=== PATIENT | male | born 1970 | race Caucasian/White ===

== ENCOUNTER → 2017-08-22 10:20 | Outpatient (CLI) | payer BC, SELFPAY ==
--- NOTE | 2017-08-22 10:27 | MR_ITS ---
MR knee RT wo con HISTORY: Medial lateral knee pain ITS.REASON: PAIN IN RT KNEE ORDERING PHYSICIAN: Sisi Catherine PATIENT AGE: 47 years Comparison: None TECHNIQUE: Standard multiplanar multiecho sequences are performed without contrast. FINDINGS: The cruciate ligaments are intact. The collateral ligaments, patellar tendon, and quadriceps tendon are intact. The patellar cartilage is well preserved. A prominent horizontal tear is present within the posterior horn of the medial meniscus extending to the mid aspect of the body of the medial meniscus.. The anterior horn of the medial meniscus and the lateral meniscus has an unremarkable appearance. There is a small knee joint effusion. There may be a small rent in the posterior aspect of the joint capsule as seen on the axial image #12 small amount fluid in this region. No bone bruise or fracture evident. IMPRESSION: 1. Prominent horizontal tear involves the posterior horn of the medial meniscus extending to the mid aspect of the body of the medial meniscus 2. Small knee joint effusion with possible rent in the posterior capsule and mid popliteal region
== END ==
PROVIDERS: PCP Nurse Practitioner Family; Visit Provider Nurse Practitioner Family
DX: M25.561 Pain in right knee (principal)
CPT/HCPCS: 73721

== ENCOUNTER 2017-10-25 08:00 | Outpatient (RCR) | payer BC, SELFPAY | END 2017-10-25 08:01 | disposition home or self-care (01) | LOC: PT 08:00 | PROVIDERS: PCP Nurse Practitioner Family; Visit Provider Orthopaedic Surgery Adult Reconstructive Orthopaedic Surgery | DX: S83.281A Other tear of lateral meniscus, current injury, right knee, initial encounter (principal); M25.561 Pain in right knee | CPT/HCPCS: 97010; 97014; 97016; 97110; 97140; 97163; G0283 ==

== ENCOUNTER 2018-07-01 08:00 | Outpatient (RCR) | payer OTHER, SELFPAY | END 2018-07-01 08:05 | disposition home or self-care (01) | LOC: PT 08:00 | PROVIDERS: Visit Provider Orthopaedic Surgery | DX: S43.432A 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, initial encounter (principal) | CPT/HCPCS: 97010; 97014; 97016; 97033; 97035; 97110; 97140; 97163; 97164; G0283 ==

== ENCOUNTER 2020-01-15 18:15 | Emergency (ER) | payer BC, SELFPAY ==
[2020-01-15 18:33] VITALS: BP 132/86; PULSE 80; RESP 18; TEMP 36.9; O2SAT 99; BMI 25.0
--- NOTE | 2020-01-15 19:04 | HMH.EDUTC ---
[facility] [place] Disposition Clinical Impression: Sinusitis Qualifiers: Sinusitis location: unspecified location Chronicity: acute Recurrence: non-recurrent Qualified Code(s): J01.90 - Acute sinusitis, unspecified Disposition: Home, Self-Care Condition on Discharge: Good Instructions: Sinusitis, DI for Sinusitis Additional Instructions: Drink plenty of fluids. Take tylenol or ibuprofen for pain or fever. Take the medications as directed. Follow up with your regular doctor. GO TO THE ER FOR ANY WORSENING SYMPTOMS Don't start the oral steroids until tomorrow, since you had the shot here today. Prescriptions: methylPREDNISolone [Medrol] 4 mg PO DIRECTED 6 Days #21 tab.[email or web address] Transmission Status: Received by [facility] Azithromycin [Z-Darnell 250mg Tab*] 250 mg PO UD DOSE PK #6 tab Transmission Status: Received by [facility] Referrals: Sisi Catherine [Primary Care Provider] - Time of Disposition: 19:18 Medical Decision Making - Medical Records Medical records reviewed: No: I reviewed the patient's medical records. - Marcel Inquiry Pt receiving controlled substance: No Vital Signs: 01/15/20 18:33 Temperature 98.5 F Temperature Source Oral Pulse Rate [Radial] 80 Respiratory Rate 18 Blood Pressure [Right Arm] 132/86 Blood Pressure Mean [Right Arm] 101 Blood Pressure Source [Right Arm] Automatic Cuff Blood Pressure Position [Right Arm] Sitting 02 Sat by Pulse Oximetry 99 Oxygen Delivery Method Room Air Orders (Tests/Meds): ED MEDICATIONS Discontinued Medications Generic Name Dose Route Start Last Admin Trade Name Freq PRN Reason Stop Dose Admin Ceftriaxone Sodium 1 gm 01/15/20 19:06 01/15/20 19:19 Ceftriaxone 1gm Vial IM 01/15/20 19:07 1 gm ONCE ONE Administration Protocol Lidocaine HCl 0 ml 01/15/20 19:06 01/15/20 19:19 Lidocaine 1% 5ml Pf Vial IM 01/15/20 19:07 2.1 ml ONCE ONE Administration Methylprednisolone Sodium Succinate 125 mg 01/15/20 19:06 01/15/20 19:19 Methylprednisolone Sod Succ 125mg Vial IM 01/15/20 19:07 125 mg ONCE ONE Administration [facility] [place] HPI - General Stated complaint: sinus infection Time Seen by Provider: 01/15/20 19:04 Mode of Arrival: Ambulatory Source of Information: Patient Limitations: No Limitations Description of Symptoms (Recalled from Triage Doc. by RN): possible sinus infection HEENT Symptoms (Recalled from RN notes): Yes Resp Symptoms (Recalled from RN notes): No Skin Symptoms (Recalled from RN notes): No MS Symptoms (Recalled from RN notes): No Functional Status (Recalled from RN notes): wnl - History of Present Illness Provider Complaint: He c/o sinus congestion since yesterday. He states that he has bad allergies and he usually gets a sinus infection like this 2 or 3 times per year. He denies any fever or chills or cough. - Related Data Previous Rx's Medication Instructions Recorded amoxicillin 500 mg capsule 500 mg PO Q12H 10 Days #20 cap 11/21/18 Azithromycin [Z-Darnell 250mg Tab*] 250 mg PO UD DOSE PK #6 tab 01/15/20 methylPREDNISolone [Medrol] 4 mg PO DIRECTED 6 Days #21 01/15/20 tab.ds.pk Allergies Allergy/AdvReac Type Severity Reaction Status Date / Time No Known Allergies Allergy Verified 11/21/18 10:55 - Worker's Comp Is this a Worker's Comp case?: No [facility] History - Hepatitis A Screen Drug use history?: No High risk sexual behaviors?: No History of sexually transmitted infection?: No Currently employed?: No Childcare worker?: No Do you have indoor plumbing?: Yes Do you have electricity?: Yes Attestation statement:: This patient has been screened for Hepatitis A risk factors. I have reviewed the patient's past medical history: Yes Medical History: Reports:: Anxiety Laterality Cases: Left: Arthroscopy Shoulder, Right: Arthroscopy Knee, Bilateral: Myringotomy (Ear Tubes), Tonsillectomy Other Surgeries: Yes: Cardiac Catheterization, Sinus Surgery
[2020-01-15 19:26] VITALS: BP 132/86; PULSE 80; RESP 18; TEMP 36.9; O2SAT 99
== END 2020-01-15 19:28 | disposition home or self-care (01) ==
PROVIDERS: Emergency Provider Nurse Practitioner Family; PCP Nurse Practitioner Family
DX: J01.90 Acute sinusitis, unspecified (principal); F41.9 Anxiety disorder, unspecified
CPT/HCPCS: 96372; 99201

== ENCOUNTER 2020-03-01 17:55 | Emergency (ER) | payer BC, SELFPAY ==
[2020-03-01 18:50] VITALS: BP 125/91; PULSE 68; RESP 14; TEMP 36.8; O2SAT 99; BMI 25.0
--- NOTE | 2020-03-01 19:09 | HMH.EDUTC ---
[facility] [place]ression: Exposure to COVID-19 virus Disposition: Home, Self-Care Condition on Discharge: Good Instructions: Preventing the Spread of Coronavirus Discharge Instructions Additional Instructions: Drink plenty of fluids. Take tylenol for pain or fever. Return if you begin to have difficulty breathing. Follow up with your regular doctor. GO TO THE ER FOR ANY WORSENING SYMPTOMS Referrals: Sisi Catherine [Primary Care Provider] - Time of Disposition: 19:11 Medical Decision Making - Medical Records Medical records reviewed: No: I reviewed the patient's medical records. - Marcel Inquiry Pt receiving controlled substance: No Vital Signs: 03/01/20 18:50 03/01/20 19:11 Temperature 98.3 F 98.3 F Temperature Source Oral Pulse Rate 68 Pulse Rate [Right Brachial] 68 Respiratory Rate 14 14 Blood Pressure 125/91 H Blood Pressure [Right Arm] 125/91 H Blood Pressure Mean [Right Arm] 102 Blood Pressure Source [Right Arm] Automatic Cuff Blood Pressure Position [Right Arm] Sitting 02 Sat by Pulse Oximetry 99 Oxygen Delivery Method Room Air Orders (Tests/Meds): ORDERS Category Date Time Status Covid-19 Nasal PCR Sendout [facility] 03/01/20 18:40 [place] [facility] [place] - General Stated complaint: covid exposure Time Seen by Provider: 03/01/20 19:09 Mode of Arrival: Ambulatory Source of Information: Patient Limitations: No Limitations Description of Symptoms (Recalled from Triage Doc. by RN): PATIENT REQUESTING COVID TEST D/T EXPOSURE HEENT Symptoms (Recalled from RN notes): No Resp Symptoms (Recalled from RN notes): No Skin Symptoms (Recalled from RN notes): No MS Symptoms (Recalled from RN notes): No Functional Status (Recalled from RN notes): WNL - History of Present Illness Provider Complaint: He reports that he was exposed to covid last week at work. He has had a head ache on and off since yesterday. He has also had some diarrhea. He denies any other symptoms. - Related Data Allergies Allergy/AdvReac Type Severity Reaction Status Date / Time No Known Allergies Allergy Verified 11/21/18 10:55 - Worker's Comp Is this a Worker's Comp case?: No [facility] History - Hepatitis A Screen Drug use history?: No High risk sexual behaviors?: No History of sexually transmitted infection?: No Currently employed?: No Childcare worker?: No Do you have indoor plumbing?: Yes Do you have electricity?: Yes Attestation statement:: This patient has been screened for Hepatitis A risk factors. I have reviewed the patient's past medical history: Yes Medical History: Reports:: Anxiety Laterality Cases: Left: Arthroscopy Shoulder, Right: Arthroscopy Knee, Bilateral: Myringotomy (Ear Tubes), Tonsillectomy Other Surgeries: Yes: Cardiac Catheterization, Sinus Surgery Amputation: No Fractures: No - Social History Smoking Status: Never smoker Alcohol Intake: never Substance Use Type: denies use Occupational Status: other Housing: house Household Members: family - Psychiatric History Pschychiatric History:: Reports:: Anxiety Family Hx:: Cancer, Heart Attack ROS Obtained: Yes All systems reviewed & no additional complaints - Constitutional Constitutional: Reports system reviewed and no additional complaints, except as docu - Eyes Eyes: Reports system reviewed and no additional complaints, except as docu - ENT Ears, Nose, Mouth, and Throat: Reports system reviewed and no additional complaints, except as docu - Cardiovascular Cardiovascular: Reports system reviewed and no additional complaints, except as docu - Respiratory Respiratory: Yes system reviewed and no additional complaints, except as docu - Gastrointestinal Gastrointestingal: Reports: system reviewed and no additional complaints, except as docu Physical Exam - General General appearance: alert, in no apparent distress - Head Head exam: atraumatic, normocephalic, normal inspection
[2020-03-01 19:11] VITALS: BP 125/91; PULSE 68; RESP 14; TEMP 36.8; O2SAT 99
[2020-03-03 15:52] LABS: Covid-19 Nasal PCR Sendout Lex Not Detected
== END 2020-03-01 19:14 | disposition home or self-care (01) ==
PROVIDERS: Emergency Provider Nurse Practitioner Family; PCP Nurse Practitioner Family
DX: Z20.828 Contact with and (suspected) exposure to other viral communicable diseases (principal); F41.9 Anxiety disorder, unspecified
CPT/HCPCS: 99201; U0004

== ENCOUNTER 2020-11-28 10:09 | Emergency (ER) | payer BC, SELFPAY ==
[2020-11-28 11:13] VITALS: BP 134/90; PULSE 99; RESP 20; TEMP 36.6; O2SAT 99; BMI 25.0
--- NOTE | 2020-11-28 11:23 | HMH.EDUTC ---
[facility] [place] Disposition Clinical Impression: Allergic rhinitis Qualifiers: Allergic rhinitis trigger: unspecified Allergic rhinitis seasonality: unspecified Qualified Code(s): J30.9 - Allergic rhinitis, unspecified Disposition: Home, Self-Care Condition on Discharge: Good Instructions: Allergic Rhinitis Prescriptions: Olopatadine HCl [Pataday] 1 drp * BID 30 Days #1 ml Transmission Status: Pending to [facility] predniSONE [Prednisone 20mg Tab] 20 mg PO BID #10 tab Transmission Status: Pending to [facility] Pseudoephedrine HCl [Sudafed 12 Hour 120mg Tab] 1 tab PO BID 10 Days #20 tab Transmission Status: Pending to [facility] Referrals: Janessa Rai [Primary Care Provider] - Time of Disposition: 11:35 Medical Decision Making - Marcel Inquiry Pt receiving controlled substance: No Vital Signs: 11/28/20 11:13 Temperature 97.8 F Temperature Source Oral Pulse Rate [Left] 99 H Respiratory Rate 20 Blood Pressure [Right Arm] 134/90 Blood Pressure Mean [Right Arm] 104 02 Sat by Pulse Oximetry 99 Orders (Tests/Meds): ORDERS Category Date Time Status Covid-19 Nasal PCR ([facility]) Routine Lab 11/28/20 11:18 Ordered [facility] HPI - General Stated complaint: congestion, sinus Time Seen by Provider: 11/28/20 11:23 Mode of Arrival: Ambulatory Source of Information: Patient Limitations: No Limitations Description of Symptoms (Recalled from Triage Doc. by RN): pt c/o nasal drainage and congestion. HEENT Symptoms (Recalled from RN notes): Yes (nasal drainage and congestion) Resp Symptoms (Recalled from RN notes): No Skin Symptoms (Recalled from RN notes): No MS Symptoms (Recalled from RN notes): No Functional Status (Recalled from RN notes): na - History of Present Illness Provider Complaint: Nasal congestion and drainage X 4 days. No fever. Eyes have been watering. Started after mowing but allergy meds have not helped. No vomiting or diarrhea. Tested negative for COVID19 at [facility] on . Onset (ago): day(s) (4) Location: eyes Relieving factors: none Exacerbating factors: none Associated symptoms: denies other symptoms Treatments prior to arrival: other (claritin, zyrtec, Xyzal, cate) - Related Data Previous Rx's Medication Instructions Recorded Olopatadine HCl [Pataday] 1 drp * BID 30 Days #1 ml 11/28/20 Pseudoephedrine HCl [Sudafed 12 1 tab PO BID 10 Days #20 tab 11/28/20 Hour 120mg Tab] predniSONE [Prednisone 20mg 20 mg PO BID #10 tab 11/28/20 Tab] Allergies Allergy/AdvReac Type Severity Reaction Status Date / Time No Known Allergies Allergy Verified 11/28/20 11:15 - Worker's Comp Is this a Worker's Comp case?: No [facility] History - Hepatitis A Screen Drug use history?: No High risk sexual behaviors?: No History of sexually transmitted infection?: No Currently employed?: No Childcare worker?: No Do you have indoor plumbing?: Yes Do you have electricity?: Yes Attestation statement:: This patient has been screened for Hepatitis A risk factors. I have reviewed the patient's past medical history: Yes Medical History: Reports:: Anxiety Laterality Cases: Left: Arthroscopy Shoulder, Right: Arthroscopy Knee, Bilateral: Myringotomy (Ear Tubes), Tonsillectomy Other Surgeries: Yes: Cardiac Catheterization, Sinus Surgery Amputation: No Fractures: No - Social History Smoking Status: Never smoker Alcohol Intake: never Substance Use Type: denies use Occupational Status: other Housing: house Household Members: family - Psychiatric History Pschychiatric History:: Reports:: Anxiety Family Hx:: Cancer, Heart Attack ROS Obtained: Yes All systems reviewed & no additional complaints - Constitutional Constitutional: Denies fever(s) - Eyes Eyes: Reports itchy eyes - ENT Ears, Nose, Mouth, and Throat: Reports otalgia, Reports nasal congestion, Reports sore throat Physical Exam - General General appearance: alert, in no apparent
[2020-11-28 11:33] VITALS: BP 134/90; PULSE 83; RESP 16; TEMP 36.6
== END 2020-11-28 12:03 | disposition home or self-care (01) ==
PROVIDERS: Emergency Provider Physician Assistant; PCP Family Medicine
DX: J30.9 Allergic rhinitis, unspecified (principal); F41.9 Anxiety disorder, unspecified
CPT/HCPCS: 96372; 99202; G0463; J1030; U0003

== ENCOUNTER 2021-05-31 09:35 | Emergency (ER) | payer BC, SELFPAY ==
[2021-05-31 10:15] VITALS: BP 129/80; PULSE 68; RESP 18; TEMP 36.8; O2SAT 100; BMI 27.1
--- NOTE | 2021-05-31 10:28 | HMH.EDUTC ---
[facility] [place]ression: Sinusitis Qualifiers: Sinusitis location: unspecified location Chronicity: unspecified Qualified Code(s): J32.9 - Chronic sinusitis, unspecified Disposition: Home, Self-Care Condition on Discharge: Good Instructions: Sinusitis, DI for Sinusitis, DI for Cough -- Adult Additional Instructions: *Monitor Temp, Over the counter Motrin or Tylenol as directed/as needed Tylenol every 4 hours and Motrin every 6 hours (as long as your family doctor has told you that you can take it) for fever or pain. and straight to ER if unable to lower temp less than 101.0 after medication given *Warm salt water gargles may help to soothe the throat *Throat Lozenges *Warm fluids like tea with honey may help to soothe the throat *Sleep elevated *Humidifier/Vaporizer Take medication as prescribed Follow up if no improvement Follow up IMMEDIATELY for new or worsening symptoms or no Noticeable improvement over the next 48-72 hours. 911 for difficulty breathing or swallowing Prescriptions: guaiFENesin [Mucinex 600mg tablet] 1 - 2 tab PO Q12HP PRN #20 tab PRN Reason: Congestion Transmission Status: [facility] Amoxicillin/Potassium Clav [Amox-Clav 875-125 mg Tablet] 1 tab PO BID #14 tab Transmission Status: [facility] methylPREDNISolone [Medrol 4mg tab] 4 mg PO DIRECTED #21 tab Transmission Status: [facility] Referrals: Sisi Catherine [Primary Care Provider] - As needed Forms: Work/School Release Time of Disposition: 10:34 Medical Decision Making - Marcel Inquiry Pt receiving controlled substance: No Marcel was queried for this patient: No Vital Signs: 05/31/21 10:15 Temperature 98.3 F Temperature Source Oral Pulse Rate [Right Radial] 68 Respiratory Rate 18 Blood Pressure [Right Arm] 129/80 Blood Pressure Mean [Right Arm] 96 Blood Pressure Source [Right Arm] Automatic Cuff Blood Pressure Position [Right Arm] Sitting 02 Sat by Pulse Oximetry 100 Oxygen Delivery Method Room Air [facility] [place] - General Stated complaint: congestion, cough, h/a, runny nose, body aches Time Seen by Provider: 05/31/21 10:28 Mode of Arrival: Ambulatory Source of Information: Patient Limitations: No Limitations Description of Symptoms (Recalled from Triage Doc. by RN): pt reports head and chest congestion and cough that is productive at times. Denies fevers, n/v/d and SOA. Pt reports postnasal drainage. Pt states he was swabbed yesterday for covid at his work, he is awaiting test results. HEENT Symptoms (Recalled from RN notes): Yes (c/o head and chest congestion and postnasal drainage.) Resp Symptoms (Recalled from RN notes): No Skin Symptoms (Recalled from RN notes): No MS Symptoms (Recalled from RN notes): No Functional Status (Recalled from RN notes): n/a - History of Present Illness Provider Complaint: Patient states that he has been having sinus congestion and pressure along with drainage in the back of his throat and cough that at times he is able to cough up mucous States that due to his symptoms he was tested for COVID yesterday at work still awaiting results States that today he is feeling pressure behind his eyes and feels like it is getting worse - Related Data Previous Rx's Medication Instructions Recorded Olopatadine HCl [Pataday] 1 drp * BID 30 Days #1 ml 11/28/20 Pseudoephedrine HCl [Sudafed 12 1 tab PO BID 10 Days #20 tab 11/28/20 Hour 120mg Tab] predniSONE [Prednisone 20mg 20 mg PO BID #10 tab 11/28/20 Tab] Amoxicillin/Potassium Clav 1 tab PO BID #14 tab 05/31/21 [Amox-Clav 875-125 mg Tablet] guaiFENesin [Mucinex 600mg tablet] 1 - 2 tab PO Q12HP PRN #20 tab 05/31/21 methylPREDNISolone [Medrol 4mg 4 mg PO DIRECTED #21 tab 05/31/21 tab] Allergies Allergy/AdvReac Type Severity Reaction Status Date / Time No Known Allergies Allergy Verified 11/28/20 11:15 - Worker's Comp Is this a
[2021-05-31 10:47] VITALS: BP 129/80; PULSE 68; RESP 18; TEMP 36.8; O2SAT 100
== END 2021-05-31 10:50 | disposition home or self-care (01) ==
PROVIDERS: Emergency Provider Nurse Practitioner; PCP Nurse Practitioner Family
DX: J32.9 Chronic sinusitis, unspecified (principal)
CPT/HCPCS: 99212; G0463

== ENCOUNTER 2021-11-20 08:00 | Emergency (ER) | payer BC, SELFPAY ==
[2021-11-20 08:10] VITALS: BP 132/91; PULSE 82; RESP 19; TEMP 36.8; O2SAT 99; BMI 25.7
--- NOTE | 2021-11-20 08:30 | HMH.EDUTC ---
[facility] [place]ression: Encounter for laboratory testing for COVID-19 virus Sinusitis Qualifiers: Sinusitis location: unspecified location Chronicity: unspecified Qualified Code(s): J32.9 - Chronic sinusitis, unspecified Disposition: Home, Self-Care Condition on Discharge: Good Instructions: Sinusitis, DI for COVID-19 (Suspected or Confirmed ), Preventing the Spread of Coronavirus Discharge Instructions Additional Instructions: *Monitor Temp, Over the counter Motrin or Tylenol as directed/as needed Tylenol every 4 hours and Motrin every 6 hours (as long as your family doctor has told you that you can take it) for fever or pain. and straight to ER if unable to lower temp less than 101.0 after medication given *Warm salt water gargles may help to soothe the throat *Throat Lozenges *Warm fluids like tea with honey may help to soothe the throat *Sleep elevated *Humidifier/Vaporizer *Flonase 2 sprays in each nostril daily but be aware that it may take 2-3 days before you notice improvement Follow up IMMEDIATELY for new or worsening symptoms or no Noticeable improvement over the next 48-72 hours. 911 for difficulty breathing or swallowing You were tested for today for COVID19 your test result should be back in the next 24-48 hours, you may check your results on the [facility] My Health Portal Make sure to take your Vitamins Vit. C Vit D and Zinc if you can take them Prescriptions: methylPREDNISolone [Medrol 4mg tab] 4 mg PO DIRECTED #21 tab Transmission Status: Pending to [facility] Azithromycin [Z-Darnell 250mg Tab] 250 mg PO DIRECTED #6 tab [facility]: [facility] Referrals: Provider,Referral, [Primary Care Provider] - As needed Forms: Work/School Release Time of Disposition: 08:37 Medical Decision Making - Marcel Inquiry Pt receiving controlled substance: No Marcel was queried for this patient: No Vital Signs: 11/20/21 08:10 Temperature 98.2 F Temperature Source Oral Pulse Rate [Left Brachial] 82 Respiratory Rate 19 Blood Pressure [Left Arm] 132/91 H Blood Pressure Mean [Left Arm] 104 Blood Pressure Source [Left Arm] Automatic Cuff Blood Pressure Position [Left Arm] Sitting 02 Sat by Pulse Oximetry 99 Oxygen Delivery Method Room Air Orders (Tests/Meds): ORDERS Category Date Time Status Covid-19 Nasal PCR ([facility]) Routine Lab 11/20/21 08:19 [place] [facility] [place] - General Stated complaint: Home test positive Covid, retest, aches Time Seen by Provider: 11/20/21 08:30 Mode of Arrival: Ambulatory Source of Information: Patient Limitations: No Limitations Description of Symptoms (Recalled from Triage Doc. by RN): PATIENT C/O COUGH, CHEST CONGESTION, BODY ACHES AND FEVER SINCE YESTERDAY HEENT Symptoms (Recalled from RN notes): No Resp Symptoms (Recalled from RN notes): Yes Skin Symptoms (Recalled from RN notes): No MS Symptoms (Recalled from RN notes): No Functional Status (Recalled from RN notes): WNL - History of Present Illness Provider Complaint: Patient states that he has been having sinus congestion and pressure for several days and thought it may have been just allergies States that yesterday it got worse and he was having pressure behind his eyes and having body aches and low grade fever States that today he was feeling worse so he came in to get checked out - Related Data Previous Rx's Medication Instructions Recorded Azithromycin [Z-Darnell 250mg Tab] 250 mg PO DIRECTED #6 tab 11/20/21 methylPREDNISolone [Medrol 4mg 4 mg PO DIRECTED #21 tab 11/20/21 tab] Allergies Allergy/AdvReac Type Severity Reaction Status Date / Time No Known Allergies Allergy Verified 11/28/20 11:15 - Worker's Comp Is this a Worker's Comp case?: No [facility] History - Hepatitis A Screen Attestation statement:: This patient has been screened for Hepatitis A risk factors. I have reviewed the patient's past medical history:
[2021-11-20 08:38] VITALS: BP 132/91; PULSE 82; RESP 19; TEMP 36.8; O2SAT 99
== END 2021-11-20 08:44 | disposition home or self-care (01) ==
PROVIDERS: Emergency Provider Nurse Practitioner
DX: J32.9 Chronic sinusitis, unspecified; U07.1 COVID-19
CPT/HCPCS: 99212; C9803; G0463; U0003; U0005

== ENCOUNTER 2022-04-11 09:32 | Emergency (ER) | payer BC, SELFPAY ==
[2022-04-11 09:35] VITALS: BP 121/72; PULSE 52; RESP 19; TEMP 36.5; O2SAT 98; BMI 27.1
--- NOTE | 2022-04-11 09:42 | EXP.UTC ---
Discharge Plan Disposition Patient Disposition: Home, Self-Care Condition: Good Prescriptions Prescriptions: New promethazine-DM 6.25-15 mg/5 mL Syrup 5 ml PO Q6H PRN (Reason: Cough) Qty: 240 0RF azithromycin [Zithromax] 250 mg tablet 250 mg PO UD DOSE PK Qty: 6 0RF Rx Instructions: Take two (2) tablets today, then one (1) tablet days #2 thru #5 methylprednisolone 4 mg Tablets,Dose Pack 4 mg PO DIRECTED Qty: 21 0RF guaifenesin [Mucinex] 600 mg tablet extended release 12hr 600 - 1,200 mg PO BIDP PRN (Reason: Congestion) Qty: 30 0RF No Action escitalopram oxalate 20 mg tablet 20 mg PO DAILY Label Comments: TAKE 1 TABLET BY MOUTH ONCE DAILY Referrals Follow up/Referrals: Provider,Referral, MD [Primary Care Provider] - See instructions Activity Restrictions/Add. Instructions Additional Instructions/Restrictions: Drink plenty of fluids. Take tylenol or ibuprofen for pain or fever. Take the medications as directed. Follow up with your regular doctor. GO TO THE ER FOR ANY WORSENING SYMPTOMS Clinical Impressions Clinical Impression: Sinusitis, Bronchitis Instructions Patient Instructions: DI for Sinusitis, DI for Acute Bronchitis Discharge ED Provider: Lane Adler [facility] [place] General Stated complaint: Persistant Cough Time Seen by Provider: 04/11/22 09:42 History of Present Illness Provider Complaint: He states that he has had sinus congestion, chest congestion, productive cough with yellow sputum and malaise for the past 5 days. Related Data Home Medications Medication Instructions Recorded Confirmed escitalopram oxalate 20 mg tablet 20 mg PO DAILY Anxiety 04/11/22 04/11/22 Previous Rx's Medication Instructions Recorded azithromycin 250 mg tablet 250 mg PO UD DOSE PK #6 tabs 04/11/22 (Zithromax) guaifenesin 600 mg tablet, 600 - 1,200 mg PO BIDP PRN 04/11/22 extended release 12 hr (Mucinex) Congestion #30 tabs methylprednisolone 4 mg tablets in 4 mg PO DIRECTED #21 tabs 04/11/22 a dose pack promethazine-DM 6.25 mg-15 mg/5 mL 5 ml PO Q6H PRN Cough #240 mL 04/11/22 oral syrup Allergies Allergy/AdvReac Type Severity Reaction Status Date / Time No Known Allergies Allergy Verified 04/11/22 09:51 [facility] Disclaimer: The information contained in this section may have been updated after the patient was seen, as this information can be updated by other users. Social History Smoking Status: Never smoker alcohol intake: never substance use type: denies use current occupational status: other Travel in the last 8 weeks: None household members: family housing: house ROS Obtained: Yes All systems reviewed & no additional complaints except as documented Constitutional Constitutional: Reports poor appetite Eyes Eyes: Reports system reviewed and no additional complaints, except as documented ENT Ears, Nose, Mouth, and Throat: Reports as per HPI Cardiovascular Cardiovascular: Reports system reviewed and no additional complaints, except as documented and Denies chest pain Respiratory Respiratory: Denies shortness of breath, Denies chest congestion, Reports cough, Denies stridor and Denies wheezing Gastrointestinal Gastrointestingal: Reports system reviewed and no additional complaints, except as documented; Denies abdominal pain, diarrhea or vomiting Musculoskeletal Musculoskeletal: Reports system reviewed and no additional complaints, except as documented and Denies arthralgias Integumentary/Breasts Skin/Breast: Reports system reviewed and no additional complaints, except as documented and Denies rash Neurologic Neurologic: Denies paresthesias Allergic/Immunologic Allergic/Immunologic: Denies wheezing Physical Exam General General appearance: alert and in no apparent distress Eye Eye exam: Present normal appearance, PERRL and EOMI ENT ENT exam: Present mucous me
[2022-04-11 10:50] VITALS: BP 121/72; PULSE 52; RESP 19; TEMP 36.5; O2SAT 98
== END 2022-04-11 10:50 | disposition home or self-care (01) ==
PROVIDERS: Emergency Provider Nurse Practitioner Family
DX: J40 Bronchitis, not specified as acute or chronic (principal); J32.9 Chronic sinusitis, unspecified
CPT/HCPCS: 99212; G0463

== ENCOUNTER 2022-06-29 11:21 | Emergency (ER) | payer BC, SELFPAY ==
--- NOTE | 2022-06-29 11:31 | EXP.UTC ---
Discharge Plan Disposition Patient Disposition: Home, Self-Care Condition: Good Prescriptions Prescriptions: New azithromycin [Zithromax] 250 mg tablet 250 mg PO UD DOSE PK Qty: 6 0RF Rx Instructions: Take two (2) tablets today, then one (1) tablet days #2 thru #5 benzonatate [benzonatate] 100 mg capsule 100 mg PO TIDP PRN (Reason: Cough) Qty: 30 0RF methylprednisolone 4 mg Tablets,Dose Pack 4 mg PO DIRECTED Qty: 21 0RF No Action escitalopram oxalate 20 mg tablet 20 mg PO DAILY Label Comments: TAKE 1 TABLET BY MOUTH ONCE DAILY promethazine-DM 6.25-15 mg/5 mL Syrup 5 ml PO Q6H PRN (Reason: Cough) Qty: 240 0RF azithromycin [Zithromax] 250 mg tablet 250 mg PO UD DOSE PK Qty: 6 0RF Rx Instructions: Take two (2) tablets today, then one (1) tablet days #2 thru #5 methylprednisolone 4 mg Tablets,Dose Pack 4 mg PO DIRECTED Qty: 21 0RF guaifenesin [Mucinex] 600 mg tablet extended release 12hr 600 - 1,200 mg PO BIDP PRN (Reason: Congestion) Qty: 30 0RF Referrals Follow up/Referrals: Provider,Referral, MD [Primary Care Provider] - See instructions Activity Restrictions/Add. Instructions Additional Instructions/Restrictions: Drink plenty of fluids. Take tylenol or ibuprofen for pain or fever. Take the medications as directed. Follow up with your regular doctor. GO TO THE ER FOR ANY WORSENING SYMPTOMS Clinical Impressions Clinical Impression: Sinusitis, Acute viral syndrome Instructions Patient Instructions: DI for Sinusitis, DI for Viral Syndrome Discharge ED Provider: Lane Adler [facility] General Stated complaint: Congestion,cough,sore throat Time Seen by Provider: 06/29/22 11:31 History of Present Illness Provider Complaint: He states that for the past 3 days he has had a productive cough with greenish sputum, sinus congestion, malaise, and low grade fever. Related Data Home Medications Medication Instructions Recorded Confirmed escitalopram oxalate 20 mg tablet 20 mg PO DAILY Anxiety 04/11/22 04/11/22 Previous Rx's Medication Instructions Recorded azithromycin 250 mg tablet 250 mg PO UD DOSE PK #6 tabs 04/11/22 (Zithromax) guaifenesin 600 mg tablet, 600 - 1,200 mg PO BIDP PRN 04/11/22 extended release 12 hr (Mucinex) Congestion #30 tabs methylprednisolone 4 mg tablets in 4 mg PO DIRECTED #21 tabs 04/11/22 a dose pack promethazine-DM 6.25 mg-15 mg/5 mL 5 ml PO Q6H PRN Cough #240 mL 04/11/22 oral syrup azithromycin 250 mg tablet 250 mg PO UD DOSE PK #6 tabs 06/29/22 (Zithromax) benzonatate 100 mg capsule 100 mg PO TIDP PRN Cough #30 caps 06/29/22 methylprednisolone 4 mg tablets in 4 mg PO DIRECTED #21 tabs 06/29/22 a dose pack Allergies Allergy/AdvReac Type Severity Reaction Status Date / Time No Known Allergies Allergy Verified 06/29/22 11:34 [facility] Disclaimer: The information contained in this section may have been updated after the patient was seen, as this information can be updated by other users. Social History Smoking Status: Never smoker alcohol intake: never substance use type: denies use current occupational status: other Travel in the last 8 weeks: None household members: family housing: house ROS Obtained: Yes All systems reviewed & no additional complaints except as documented Constitutional Constitutional: Reports poor appetite Eyes Eyes: Reports system reviewed and no additional complaints, except as documented ENT Ears, Nose, Mouth, and Throat: Reports as per HPI Cardiovascular Cardiovascular: Reports system reviewed and no additional complaints, except as documented and Denies chest pain Respiratory Respiratory: Denies shortness of breath, Denies chest congestion, Reports cough, Denies stridor and Denies wheezing Gastrointestinal Gastrointestingal: Reports system reviewed and no additional comp
[2022-06-29 11:32] VITALS: BP 130/84; PULSE 83; RESP 16; TEMP 36.4; O2SAT 99; BMI 27.1
[2022-06-29 11:43] LABS: UTC Strep Screen (Rapid) Negative (Negative)
[2022-06-29 11:53] LABS: UTC Influenza A Antigen Negative (Negative); UTC Influenza B Antigen Negative (Negative)
[2022-06-29 12:19] VITALS: BP 130/84; PULSE 83; RESP 16; TEMP 36.4
== END 2022-06-29 12:24 | disposition home or self-care (01) ==
PROVIDERS: Emergency Provider Nurse Practitioner Family
DX: J01.90 Acute sinusitis, unspecified (principal); R53.81 Other malaise; R05.1 Acute cough; R50.9 Fever, unspecified; B34.9 Viral infection, unspecified
CPT/HCPCS: 87804; 87880; 99212; 99214; G0463

== ENCOUNTER 2023-10-21 08:01 | Emergency (ER) | payer BC, SELFPAY ==
[2023-10-21 08:05] VITALS: BP 138/90; PULSE 61; RESP 20; TEMP 36.7; O2SAT 100; BMI 26.4
--- OUTSIDE RECORDS SUMMARY | 2023-10-21 08:05 | XMS_ITS ---
Author Name Unknown Address [address] [place] [address] [place] [address] Phone Organization [facility] Address [address] [address] Phone Care Team Providers Care Rework Operator Name Role Phone TIMO ZAMUDIO Primary Care Provider [phone] NO, PCP Unavailable Unavailable Jhonatan Nelson MD Unavailable [phone] Reason for Referral Date Encounter Description Provider Reason for Referral 03/16/21 WC POST OP Jhonatan Nelson MD Referra l To Physician - see pcp for bp 02/23/21 Post Op Jhonatan Nelson MD Referra l To Physician - see pcp for bp 11/25/20 WC FOLLOW UP/EST Bradly Ames MD Referra l To Physician - see pcp for bp 11/03/20 WC FOLLOW UP/EST Bradly Ames MD Referra l To Physician - see pcp for bp Problems Includes: Active, inactive, and resolved Problems All Visits Onset Date Resolved Date Provider Condition S tatus Joint Pain, Localized in the Right Wrist 09/27/2020 Tha Fang MD Active Last Documented On 1 8:09AM ; [facility] Joint Pain, Localized in the Left Shoulder 06/26/2016 Vitor Bill MD Active Last Documented On 7 2:39PM ; [facility], [facility] Plan of Treatment Pending Tests Order Diagnosis Results Due Ordering P rovider Radiology - MRI MRI Wrist 11/17/20 Tha gil MD Last Documented On 1 3:45PM ; [facility], [facility] Instructions to patient Lose weight Last Documented On 2 8:31AM ; [facility] Lose weight Last Documented On 1 11:32AM ; [facility] Lose weight Last Documented On 1 10:19AM ; [facility] Intervention and counseling on cessation of tobacco use Last Documented On 9 3:25PM ; [facility] Intervention and counseling on cessation of tobacco use Last Documented On 9 10:03AM ; [facility] Intervention and counseling on cessation of tobacco use Last Documented On 9 9:58AM ; [facility] Intervention and counseling on cessation of tobacco use Last Documented On 9 8:43AM ; [facility] Intervention and counseling on cessation of tobacco use Last Documented On 8 10:55AM ; [facility] Intervention and counseling on cessation of tobacco use Last Documented On 8 2:45PM ; [facility] Intervention and counseling on cessation of tobacco use Last Documented On 8 1:32PM ; [facility] Instructions for patient see pcp for bp Last Documented On 7 1:21PM ; [facility] Education and Decision Aids were provided during visit for: Health seminar on smoking ce ssation Last Documented On 9 3:25PM ; [facility] Health seminar on smoking ce ssation Last Documented On 9 10:03AM ; [facility] Health seminar on smoking ce ssation Last Documented On 9 9:58AM ; [facility] Health seminar on smoking ce ssation Last Documented On 9 8:43AM ; [facility] Health seminar on smoking ce ssation Last Documented On 8 10:55AM ; [facility] Health seminar on smoking ce ssation Last Documented On 8 2:44PM ; [facility] Health seminar on smoking ce ssation Last Documented On 8 1:32PM ; [facility] Assessments Includes: Assessments for all patient encounters No Assessments Recorded Instructions Includes: Instructions for all patient encounters Instructions to patient Lose weight Last Documented On 2 8:31AM ; [facility] Lose weight Last Documented On 1 11:32AM ; [facility] Lose weight Last Documented On 1 10:19AM ; [facility] Intervention and counseling on cessation of tobacco use Last Documented On 9 3:25PM ; [facility] Intervention and counseling on cessation of tobacco use Last Documented On 9 10:03AM ; [facility] Intervention and counseling on cessation of tobacco use Last Documented On 9 9:58AM ; [facility] Intervention and counseling on cessation of tobacco use Last Documented On 9 8:43AM ; [facility] Intervention and counseling on cessation of tobacco use Last Documented On 8 10:55AM ; [facility] Intervention and counseling on cessation of tobacco use Last Documented On 8 2:45PM ; [facility] Intervention and counseling on cessation of tobacco use Last Documented On 8 1:32PM ; [facility] Instructions for patient see pcp for bp Last Documented On 7 1:21PM ; [facility] Education and Decision Aids were provided during visit for: Health seminar on smoking ce ssation Last Documented On 9 3:25PM ; [facility] Health seminar on smoking ce ssation Last Documented On 9 10:03AM ; [facility] Health seminar on smoking ce ssation Last Documented On 9 9:58AM ; [facility] Health seminar on smoking ce ssation Last Documented On 9 8:43AM ; [facility] Health seminar on smoking ce ssation Last Documented On 8 10:55AM ; [facility] Health seminar on smoking ce ssation Last Documented On 8 2:44PM ; [facility] Health seminar on smoking ce ssation Last Documented On 8 1:32PM ; [facility] Medical Equipment - Implanted Devices Includes: Current and historical Devices No Medical Equipment Recorded Medications Includes: Current and historical Medications Current Medications (continue as prescribed) Lexapro 10 MG Oral Tablet 09/27/2020 Provider: Diagnosis: Last Documented On 1 11:46AM By Mariaelena Wilcox ; [facility] Past Medications on file Ibuprofen 400 MG Oral Tablet 02/03/2021 - 02/06/2021 P rovider: Jhonatan Nelson MD Diagnosis: Take 1 tablet every 8 hrs prn pain after surgery . Last Documented On 1 9:13AM By Dr. Nelson ; [facility] [place] 5-325MG Oral Tablet 05/20/2018 - 02/23/2021 Prov ider: Vitor Bill MD Diagnosis: 1 every 6 hours Last Documented On 1 10:17AM By Jessica Pimentel ; [facility] Percocet 7.5-325MG Oral Tablet 05/06/2018 - 02/23/2021 Provider: Vitor Bill MD Diagnosis: Incomplete rotat r-cuff tear/ruptr of l shoulder, not trauma 1 tab every 6 hrs prn pain Last Documented On 1 10:17AM By Jessica Pimentel ; [facility] Percocet 7.5-325MG Oral Tablet 04/22/2018 - 02/23/2021 Provider: Vitor Bill MD Diagnosis: Incomplete rotat r-cuff tear/ruptr of l shoulder, not trauma 1 tab every 6 hrs prn pain Last Documented On 1 10:17AM By Jessica Pimentel ; [facility] Percocet 7.5-325MG Oral Tablet 04/12/2018 - 02/23/2021 Provider: Vitro Bill MD Diagnosis: Incomplete rotat r-cuff tear/ruptr of l shoulder, not trauma 1 tab every 6 hrs prn pain Last Documented On 1 10:17AM By Jessica Pimentel ; [facility] Percocet 7.5-325MG Oral Tablet 04/01/2018 - 02/23/2021 Provider: Vitor Bill MD Diagnosis: Incomplete rotat r-cuff tear/ruptr of l shoulder, not trauma 1 tab every 6 hrs prn pain Last Documented On 1 10:17AM By Jessica Pimentel ; [facility] Percocet 7.5-325MG Oral Tablet 03/21/2018 - 02/23/2021 Provider: Vitor Bill MD Diagnosis: Incomplete rotat r-cuff tear/ruptr of l shoulder, not trauma 1 tab every 6 hrs prn pain Last Documented On 1 10:17AM By Jessica Pimentel ; [facility] Percocet 7.5-325MG Oral Tablet 03/14/2018 - 02/23/2021 Provider: Vitor tovar MD Diagnosis: 1 every 6 hours Last Documented On 10:17AM By Jessica Pimentel ; [facility] Cyclobenzaprine HCl 10MG Ora l Tablet 03/14/2018 - 09/27/2020 Provider: Vitor tovar MD Diagnosis: three times a day Last Documented On 1 11:46AM By Mariaelena Wilcox ; [facility] [place] 5-325MG Oral Tablet 02/25/2018 - 02/23/2021 Provider: Vitor tovar MD Diagnosis: 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, subs encntr 1-2 po q 4-6h prn post op pain Last Documented On 1 10:17AM By Jessica Pimentel ; [facility] OxyCODONE HCl 5MG Oral Tablet 02/14/2018 - 02/23/2021 Provider: Vitor tovar MD Diagnosis: 1-2 po q 4-6h prn post op pain Last Documented On 1 10:17AM By Jessica Pimentel ; [facility] Zofran 4MG Oral Tablet 02/14/2018 - 02/23/2021 Provide r: Vitor Bill MD Diagnosis: Take 1 tablet every 8 hrs pr n pain Take 1 tablet every 8 hrs prn post op nausea Last Documented On 1 10:17AM By Jessica Pimentel ; [facility] Lexapro 10MG Oral Tablet 12/10/2017 - 09/27/2020 Provi fernando: Diagnosis: Last Documented On 1 11:46AM By Mariaelena Wilcox ; [facility] ZyrTEC Allergy 10 MG Capsule 06/26/2016 - 09/27/2020 P marsder: Diagnosis: Last Documented On 1 11:46AM By Mariaelena Wilcox ; [facility] TraMADol HCl 50 MG Tablet 06/26/2016 - 02/23/2021 Prov ider: Vitor Bill MD Diagnosis: 1 tab every 6 hrs prn pain Last Documented On 1 10:17AM By Jessica Pimentel ; [facility] Singulair 10 MG Tablet 06/26/2016 - 09/27/2020 Provide r: Diagnosis: Last Documented On 1 11:46AM By Mariaelena Wilcox ; [facility] Ibuprofen 200 MG Capsule 06/26/2016 - 09/27/2020 Provi fernando: Diagnosis: Last Documented On 1 11:46AM By Mariaelena Wilcox ; [facility], [facility] Medications Administered Includes: Administered Medications in patient's chart No Administered Medications Recorded Results Includes: Results from 10/20/2022 through 10/21/2023 No Results Recorded For Specified Dates History of Present Illness History of Present Illness not supported for this document type No History of Present Illness Recorded Social History Description 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 09/27/2020 Last Documented On 1 7:59AM ; [facility] Non-smoker 09/27/2020 Last Documented On 1 7:59AM ; [facility] Not a current smoker 12/18/2018 Last Documented On 9 3:42PM ; [facility] Tobacco use 12/10/2017 Last Documented On 8 2:28PM ; [facility] Caffeine use 07/14/2016 Last Documented On 7 11:53AM ; [facility] Exercising regularly 07/14/2016 Last Documented On 7 11:53AM ; [facility] No recent change in diet 07/14/2016 Last Documented On 7 11:53AM ; [facility] Not using alcohol 07/14/2016 Last Documented On 7 11:53AM ; [facility] Not using drugs 07/14/2016 Last Documented On 7 11:53AM ; [facility] Smoking status : Current everyday smoker 07/14/2016 Last Documented On 7 11:53AM ; [facility] Medical History Includes: Medical History in patient's chart Description Last Updated Irregular Heartbeat 09/27/2020 Last Documented On 1 7:59AM ; [facility] No recent immunization for pneumococcal pneumonia 09/27/2020 Last Documented On 1 7:59AM ; [facility] Recent immunization for flu 03/26/2020 0 09/27/2020 Last Documented On 1 7:59AM ; [facility] A recent injection 12/10/2017 Last Documented On 8 2:28PM ; [facility] Septoplasty x2 ~Tonsils kaylie conchita ~Tubes in ears ~Heart cath x2 ~Ablaztion ~Irregular heartbeat 07/14/2016 Last Documented On 7 11:53AM ; [facility] Family History Includes: Family History in patient's chart Description Last Updated Family history of cancer 12/10/2017 Last Documented On 8 2:28PM ; [facility] Family history of heart disease 12/11/19 18 Last Documented On 8 2:28PM ; [facility] Paternal history of family history of ca ncer 07/14/2016 Last Documented On 7 11:53AM ; [facility] Paternal history of family history of he art disease 07/14/2016 Last Documented On 7 11:53AM ; [facility] Review of Systems Review of Systems not supported for this document type No Review of Systems Recorded Mental Status Description No anxiety Functional Status No Functional Status Recorded Physical Exam Physical Exam not supported for this document type No Physical Exam Recorded Immunizations Includes: Immunizations in patient's chart Vaccine Dose # Date Site Reaction(s) Status Source Influenza 1 12/31/2020 Complete (Reported) Patient Last Documented On 1 10:18AM ; [facility] PCV (Pneumovax 23) 1 02/23/2021 Complete (Refused - Patient objection) [facility] Last Documented On 1 10:18AM ; [facility] Td 1 02/23/2021 Complete (Refused - Patient objection) [facility] Last Documented On 1 10:18AM ; [facility] Allergies Includes: Active, inactive, and resolved Allergies No Known Allergies Insurance Includes: Active Insurance Policies Plan Name Member ID Group # Subscriber Relationship Effect pierre Dates 1 - [employer] [id number] Ru Dumont 09/09/2020 - Unknown 2 - [employer] [id number] Ru Olivas Self 09/09/2020 - Unknown 3 - [facility] [id number] Ru Olivas Self 04/02/2016 - Unknown Clinical Notes Includes: Signed Clinical Notes starting from 03/16/2022 No Clinical Notes Recorded
--- OUTSIDE RECORDS SUMMARY | 2023-10-21 08:05 | XMS_ITS ---
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
--- OUTSIDE RECORDS SUMMARY | 2023-10-21 08:06 | XMS_ITS | Clinical Summary ---
Author Name Unknown Address [address] [place] [address] [place] [address] Phone Organization [facility] , [facility] Address [address] [place] [address] Phone Care Team Providers Care Insulation Installer Name Role Phone TIMO ZAMUDIO Primary Care Provider [phone] NO, PCP Unavailable Unavailable Jhonatan Nelson MD Unavailable [phone] Reason for Referral Date Encounter Description Provider Reason for Referral 02/23/21 Post Op Jhonatan Nelson MD Referra l To Physician - see pcp for bp Reason for Visit and Chief Complaint The Chief Complaint is: RT Wrist pain Problems Includes: Problems addressed during this encounter and other active Problems All Visits Onset Date Resolved Date Provider Condition S tatus Joint Pain, Localized in the Right Wrist 09/27/2020 Tha Fang MD Active Last Documented On 1 8:09AM ; [facility], [facility] Joint Pain, Localized in the Left Shoulder 06/26/2016 Vitor Bill MD Active Last Documented On 7 2:39PM ; [facility], [facility] Plan of Treatment Patient is doing well. I recommend starting occupational therapy. Patient may return to work one handed duty. We will supply him with a velcro brace, and will see him back in office in 3 weeks. - Last Documented On 02/23/2021 4:13PM ; [facility], [facility] Pending Tests Order Diagnosis Results Due Ordering P rovider Therapy - Physical Therapy Wrist 02/23/21 Jhonatan Nelson MD Last Documented On 1 4:13PM ; [facility], [facility] Instructions to patient Lose weight Last Documented On 1 10:19AM ; [facility], [facility] Assessments Includes: Assessments from this encounter Findings s/p right wrist volar ganglion cyst excision - Last Documented On 02/23/2021 4:13PM ; [facility], [facility] Instructions Includes: Instructions from this encounter Instructions to patient Lose weight Last Documented On 10:19AM ; [facility], [facility] Medical Equipment - Implanted Devices Includes: Current Devices No Medical Equipment Recorded Medications Includes: Medications discussed during this encounter and other current Medications Discontinued / Stopped on this date Vitor Bill MD on 05/20/2018 [place] 5-325MG Oral Tablet Provider: Adeel Bill MD Diagnosis: Last Documented On 10:17AM By Jessica Pimentel ; [facility], [facility] Percocet 7.5-325MG Oral Tablet Provider: Vitor Bill MD Diagnosis: Incomplete rotat r-cuff tear/ruptr of l shoulder, not trauma Last Documented On 10:17AM By Jessica Pimentel ; [facility], [facility] Percocet 7.5-325MG Oral Tablet Provider: Vitor Bill MD Diagnosis: Last Documented On 10:17AM By Jessica Pimentel ; [facility], [facility] [place] 5-325MG Oral Tablet Provider: Vitor Bill MD Diagnosis: 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, subs encntr Last Documented On 10:17AM By Jessica Pimentel ; [facility], [facility] Zofran 4MG Oral Tablet Provider: Vitor Bill MD Diagnosis: Last Documented On 10:17AM By Jessica Pimentel ; [facility], [facility] TraMADol HCl 50 MG Tablet Provider: Adeel Bill MD Diagnosis: Last Documented On 10:17AM By Jessica Pimentel ; [facility], [facility] Current Medications (continue as prescribed) Lexapro 10 MG Oral Tablet 09/27/2020 Provider: Diagnosis: Last Documented On 1 11:46AM By Mariaelena Wilcox ; [facility], [facility] Past Medications on file Ibuprofen 400 MG Oral Tablet 02/03/2021 - 02/06/2021 Marisa coates: Jhonatan Nelson MD Diagnosis: Take 1 tablet every 8 hrs prn pain after surgery . Last Documented On 1 9:13AM By Dr. Nelson ; [facility] Medications Administered Includes: Administered Medications from this encounter No Administered Medications Recorded Vital Signs Includes: Vital Signs from this encounter Vital Name 02/23/2021 10:18A Blood Pressure Sitting (mmHg) 130/83 Pulse Rate-Sitting (bpm) 75 Height (in) 72 Weight (lb) 200 Body Mass Index (kg/m2) 27.1 Body Surface Area (m2) 2.1 Note: ss Last Documented: On 02/23/2021 10:19A M ; [facility] Results Includes: Results discussed during this encounter No Results Recorded For Specified Dates History of Present Illness Includes: History of Present Illness from this encounter KATHRYN Olivas is a 50 year old male. - Allergy list reviewed - Problem list reviewed - Medication reconciliation performed - Medication list reviewed with patient Patient is here today for post op visit from a volar ganglion excision on the right wrist. 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 09/27/2020 Last Documented On 1 10:18AM ; [facility] Non-smoker 09/27/2020 Last Documented On 1 10:18AM ; [facility] Not a current smoker 12/18/2018 Last Documented On 1 10:18AM ; [facility] Tobacco use 12/10/2017 Last Documented On 1 10:18AM ; [facility] Caffeine use 07/14/2016 Last Documented On 1 10:18AM ; [facility] Exercising regularly 07/14/2016 Last Documented On 1 10:18AM ; [facility] No recent change in diet 07/14/2016 Last Documented On 1 10:18AM ; [facility] Not using alcohol 07/14/2016 Last Documented On 1 10:18AM ; [facility] Not using drugs 07/14/2016 Last Documented On 1 10:18AM ; [facility] Smoking status : Current everyday smoker 07/14/2016 Last Documented On 1 10:18AM ; [facility], [facility] Procedures and Surgical History Includes: Procedures from this encounter Procedures Code Diagnosis Performing Provider Service L ocation Service Date use of tobacco assessment performed 1000F Last Documented On 1 10:18AM ; [facility], [facility] referral to physician see pcp for bp Last Documented On 1 10:19AM ; [facility] Medical History Includes: Medical History addressed during this encounter Description Last Updated Irregular Heartbeat 09/27/2020 Last Documented On 1 10:18AM ; [facility], [facility] No recent immunization for pneumococcal pneumonia 09/27/2020 Last Documented On 1 10:18AM ; [facility] Recent immunization for flu 03/26/2020 0 09/27/2020 Last Documented On 1 10:18AM ; [facility] A recent injection 12/10/2017 Last Documented On 1 10:18AM ; [facility] Septoplasty x2 ~Tonsils kaylie conchita ~Tubes in ears ~Heart cath x2 ~Ablaztion ~Irregular heartbeat 07/14/2016 Last Documented On 1 10:18AM ; [facility] Family History Includes: Family History addressed during this encounter Description Last Updated Family history of cancer 12/10/2017 Last Documented On 1 10:18AM ; [facility] Family history of heart disease 12/11/19 18 Last Documented On 1 10:18AM ; [facility] Paternal history of family history of ca ncer 07/14/2016 Last Documented On 1 10:18AM ; [facility] Paternal history of family history of he art disease 07/14/2016 Last Documented On 1 10:18AM ; [facility] Review of Systems Includes: Review of Systems from this encounter Systemic: Feeling tired. No recent weight loss and no recent weight gain. Head: No headache and no sinus pain. Eyes: No vision problems, no Cataracts, no Glasses/Contacts, and no Glaucoma. Otolaryngeal: No hearing loss and no tinnitus. Cardiovascular: No chest pain or discomfort, no palpitations, no Hypertension, and no High Cholesterol. Pulmonary: No daytime asthma symptoms and no chronic cough. No wheezing. Gastrointestinal: No heartburn and no abdominal pain. No Indigestion, no Acid Reflux, no Peptic Ulcer, no GI Stomach Bleed, and no Ulcers. Endocrine: No hot flashes, no muscle weakness, no Diabetes, no Hypothyroid, and no Hyperthyroid. Hematologic: No easy bleeding, no tendency for easy bruising, and no Anemia. Musculoskeletal: No Arthritis and no lower back pain. No soft tissue swelling and no localized joint pain. Neurological: No dizziness, no convulsions, and no numbness. Psychological: No anxiety, no emotional lability, no depression, and no insomnia. Not crying for no reason. Skin: No dry skin. No Ulcers, no Scars, and no rash. Allergic and Immunologic: Complaint of seasonal allergic reaction. no ROS changes 02-23-21 The patient is awake alert oriented in time place and person. Has normal mood and affect. Is neatly dressed. Has normal gait and station. Pupils are equal and react to light normally. Eyes move normally. Mucous membranes are moist. The patient has no trouble with speech. Normal circulation. Normal strength. No sign of infection and wound looks good. Sutures were removed. Mental Status Includes: Mental Status from this encounter Description No anxiety Functional Status Includes: Functional Status from this encounter No Functional Status Recorded Physical Exam Includes: Physical Exam from this encounter Immunizations Includes: Immunizations addressed during this encounter Vaccine Dose # Date Site Reaction(s) Status Source Influenza 1 12/31/2020 Complete (Reported) Patient Last Documented On 1 10:18AM ; [facility], [facility] PCV (Pneumovax 23) 1 02/23/2021 Complete (Refused - Patient objection) [facility], [facility] Last Documented On 1 10:18AM ; [facility], [facility] Td 1 02/23/2021 Complete (Refused - Patient objection) [facility], [facility] Last Documented On 1 10:18AM ; [facility], [facility] Allergies Includes: Active Allergies No Known Allergies Encounters Encounter Provider Location Date Check-In Time Check- Out Time Diagnosis Post Op Jhonatan Nelson MD [facility] 10:04AM 10:39AM Insurance Includes: Active Insurance Policies Plan Name Member ID Group # Subscriber Relationship Effect pierre Dates 1 - [employer] [id number] Ru Olivas Self 09/09/2020 - Unknown 2 - [employer] [id number] Ru Olivas Self 09/09/2020 - Unknown 3 - [facility] [id number] Ru Olivas Self 04/02/2016 - Unknown Clinical Notes Includes: Clinical Notes from this encounter No Clinical Notes Recorded
--- OUTSIDE RECORDS SUMMARY | 2023-10-21 08:06 | XMS_ITS | Clinical Summary ---
Author Name Unknown Address [address] [place] [address] [place] [address] Phone Organization [facility] , [facility] Address [address] [place] [address] Phone Care Team Providers Care Councilperson Name Role Phone TIMO ZAMUDIO Primary Care Provider [phone] NO, PCP Unavailable Unavailable Omar MONTESINOS, Jhonatan Delcid Unavailable [phone] Reason for Visit and Chief Complaint [Patient Encounter] Problems Includes: Problems addressed during this encounter and other active Problems All Visits Onset Date Resolved Date Provider Condition S tatus Joint Pain, Localized in the Right Wrist 09/27/2020 Tha Fang MD Active Last Documented On 1 8:09AM ; [facility], [facility] Joint Pain, Localized in the Left Shoulder 06/26/2016 Vitor Bill MD Active Last Documented On 7 2:39PM ; [facility] Plan of Treatment No Plan of Treatment Recorded Assessments Includes: Assessments from this encounter No Assessments Recorded Medical Equipment - Implanted Devices Includes: Current Devices No Medical Equipment Recorded Medications Includes: Medications discussed during this encounter and other current Medications Current Medications (continue as prescribed) Lexapro 10 MG Oral Tablet 09/27/2020 Provider: Diagnosis: Last Documented On 11:46AM By Mariaelena Wilcox ; [facility] Medications Administered Includes: Administered Medications from this encounter No Administered Medications Recorded Results Includes: Results discussed during this encounter No Results Recorded For Specified Dates History of Present Illness Includes: History of Present Illness from this encounter No History of Present Illness Recorded Social History No Social History Recorded - Smoking Status Unknown Medical History Includes: Medical History addressed during this encounter No Medical History Recorded Family History Includes: Family History addressed during this encounter No Family History Recorded Review of Systems Includes: Review of Systems from this encounter No Review of Systems Recorded Mental Status Includes: Mental Status from this encounter No Mental Status Recorded Functional Status Includes: Functional Status from this encounter No Functional Status Recorded Physical Exam Includes: Physical Exam from this encounter No Physical Exam Recorded Allergies Includes: Active Allergies No Known Allergies Encounters Encounter Provider Location Date Check-In Time Check-Out Time Diagnosis [Patient Encounter] Jhonatan Nelson MD 02/10/2021 8:34AM 11:59PM Insurance Includes: Active Insurance Policies Plan Name Member ID Group # Subscriber Relationship Effect pierre Dates 1 - [employer] [id number] Ru Dumont 09/09/2020 - Unknown 2 - [employer] [id number] Ru Dumont 09/09/2020 - Unknown 3 - [facility] [id number] Ru Dumont 04/02/2016 - Unknown Clinical Notes Includes: Clinical Notes from this encounter No Clinical Notes Recorded
--- OUTSIDE RECORDS SUMMARY | 2023-10-21 08:06 | XMS_ITS | Clinical Summary ---
Author Name Unknown Address [address] [place] [address] [place] [address] Phone Organization [facility] , 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 Joint Pain, Localized in the Left Shoulder 06/26/2016 Vitor Bill MD Active Last Documented On 7 2:39PM ; [facility] Plan of Treatment No Plan of Treatment Recorded Assessments Includes: Assessments from this encounter No Assessments Recorded Medical Equipment - Implanted Devices Includes: Current Devices No Medical Equipment Recorded Medications Includes: Medications discussed during this encounter and other current Medications Discontinued / Stopped on this date Vitor Bill MD on 05/20/2018 [place] 5-325MG Oral Tablet Provider: Adeel Bill MD Diagnosis: Last Documented On 1 10:17AM By Jessica Pimentel ; [facility], [facility] Percocet 7.5-325MG Oral Tablet Provider: Vitor Bill MD Diagnosis: Incomplete rotat r-cuff tear/ruptr of l shoulder, not trauma Last Documented On 1 10:17AM By Jessica Pimentel ; [facility] Percocet 7.5-325MG Oral Tablet Provider: Vitor Bill MD Diagnosis: Last Documented On 1 10:17AM By Jessica Pimentel ; [facility], [facility] [place] 5-325MG Oral Tablet Provider: Vitor Bill MD Diagnosis: 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, subs encntr Last Documented On 1 10:17AM By Jessica Pimentel ; [facility], [facility] Zofran 4MG Oral Tablet Provider: Vitor Bill MD Diagnosis: Last Documented On 1 10:17AM By Jessica Pimentel ; [facility], [facility] TraMADol HCl 50 MG Tablet Provider: Adeel Bill MD Diagnosis: Last Documented On 1 10:17AM By Jessica Pimentel ; [facility], [facility] Current Medications (continue as prescribed) Lexapro 10 MG Oral Tablet 09/27/2020 Provider: Diagnosis: Last Documented On 11:46AM By Mariaelena Wilcox ; [facility], [facility] Medications Administered Includes: Administered Medications from [...] Location Date Check-In Time Check-Out Time Diagnosis BRACE FITTING Jhonatan Nelson MD [facility] 02/23/2021 10:40AM 11:59PM Insurance Includes: Active Insurance Policies Plan Name Member ID Group # Subscriber Relationship Effect pierre Dates 1 - [employer] [id number] Ru Rush Brendon Self 09/09/2020 - Unknown 2 - [employer] [id number] Ru Rush Brendon Self 09/09/2020 - Unknown 3 - [facility] [id number] Ru Olivas Self 04/02/2016 - Unknown Clinical Notes Includes: Clinical Notes from this encounter No Clinical Notes Recorded
--- OUTSIDE RECORDS SUMMARY | 2023-10-21 08:06 | XMS_ITS | Clinical Summary ---
Author Name Unknown Address [address] [place] [address] [place] [address] Phone Organization [facility] Address [address] [place] [address] Phone Care Team Providers Care Court Assistant Name Role Phone TIMO ZAMUDIO Primary Care Provider [phone] NO, PCP Unavailable Unavailable Jhonatan Nelson MD Unavailable [phone] Reason for Visit and Chief Complaint The Chief Complaint is: right wrist pain Problems Includes: Problems addressed during this encounter and other active Problems All Visits Onset Date Resolved Date Provider Condition S tatus Joint Pain, Localized in the Right Wrist 09/27/2020 Tha Fang MD Active Last Documented On 1 8:09AM ; [facility], [facility] Joint Pain, Localized in the Left Shoulder 06/26/2016 Vitor Bill MD Active Last Documented On 7 2:39PM ; [facility], [facility] Plan of Treatment Patient is doing well. Return to full duty work. Follow-up as needed - Last Documented On 04/06/2021 10:35AM ; [facility], [facility] Instructions to patient Lose weight Last Documented On 2 8:31AM ; [facility], [facility] Assessments Includes: Assessments from this encounter Findings s/p excision volar ganglion cyst R wrist - Last Documented On 04/06/2021 10:35AM ; [facility], [facility] Instructions Includes: Instructions from this encounter Instructions to patient Lose weight Last Documented On 2 8:31AM ; [facility], [facility] Medical Equipment - Implanted Devices Includes: Current Devices No Medical Equipment Recorded Medications Includes: Medications discussed during this encounter and other current Medications Current Medications (continue as prescribed) Lexapro 10 MG Oral Tablet 09/27/2020 Provider: Diagnosis: Last Documented On 1 11:46AM By Mariaelena Wilcox ; [facility], [facility] Past Medications on file Ibuprofen 400 MG Oral Tablet 02/03/2021 - 02/06/2021 Marisa coates: Jhonatan Nelson MD Diagnosis: Take 1 tablet every 8 hrs prn pain after surgery . Last Documented On 1 9:13AM By Dr. Nelson ; [facility], [facility] Medications Administered Includes: Administered Medications from this encounter No Administered Medications Recorded Vital Signs Includes: Vital Signs from this encounter Vital Name 04/06/2021 08:30A Blood Pressure Sitting (mmHg) 106/80 Pulse Rate-Sitting (bpm) 88 Height (in) 72 Weight (lb) 195 Body Mass Index (kg/m2) 26.4 Body Surface Area (m2) 2.1 Note: ss Last Documented: On 04/06/2021 8:31AM ; [facility] Results Includes: Results discussed during this encounter No Results Recorded For Specified Dates History of Present Illness Includes: History of Present Illness from this encounter KATHRYN Olivas is a 50 year old male. 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 09/27/2020 Last Documented On 2 8:30AM ; [facility] Non-smoker 09/27/2020 Last Documented On 2 8:30AM ; [facility] Not a current smoker 12/18/2018 Last Documented On 2 8:30AM ; [facility] Tobacco use 12/10/2017 Last Documented On 2 8:30AM ; [facility] Caffeine use 07/14/2016 Last Documented On 2 8:30AM ; [facility] Exercising regularly 07/14/2016 Last Documented On 2 8:30AM ; [facility] No recent change in diet 07/14/2016 Last Documented On 2 8:30AM ; [facility] Not using alcohol 07/14/2016 Last Documented On 2 8:30AM ; [facility] Not using drugs 07/14/2016 Last Documented On 2 8:30AM ; [facility] Smoking status : Current everyday smoker 07/14/2016 Last Documented On 2 8:30AM ; [facility] Procedures and Surgical History Includes: Procedures from this encounter Procedures Code Diagnosis Performing Provider Service L ocation Service Date use of tobacco assessment performed 1000F Last Documented On 2 8:31AM ; [facility] Medical History Includes: Medical History addressed during this encounter Description Last Updated Irregular Heartbeat 09/27/2020 Last Documented On 2 8:30AM ; [facility], [facility] No recent immunization for pneumococcal pneumonia 09/27/2020 Last Documented On 2 8:30AM ; [facility] Recent immunization for flu 03/26/2020 0 09/27/2020 Last Documented On 2 8:30AM ; [facility] A recent injection 12/10/2017 Last Documented On 2 8:30AM ; [facility], [facility] Septoplasty x2 ~Tonsils kaylie conchita ~Tubes in ears ~Heart cath x2 ~Ablaztion ~Irregular heartbeat 07/14/2016 Last Documented On 2 8:30AM ; [facility], [facility] Family History Includes: Family History addressed during this encounter Description Last Updated Family history of cancer 12/10/2017 Last Documented On 2 8:30AM ; [facility] Family history of heart disease 12/11/19 18 Last Documented On 2 8:30AM ; [facility] Paternal history of family history of ca ncer 07/14/2016 Last Documented On 2 8:30AM ; [facility] Paternal history of family history of he art disease 07/14/2016 Last Documented On 2 8:30AM ; [facility], [facility] Review of Systems Includes: Review of [...] and Immunologic: Complaint of seasonal allergic reaction. reviewed 04-06-21 Mental Status Includes: Mental Status from this encounter Description No anxiety Functional Status Includes: Functional Status from this encounter No Functional Status Recorded Physical Exam Includes: Physical Exam from this encounter Allergies Includes: Active Allergies No Known Allergies Encounters Encounter Provider Location Date Check-In Time Check-Out Time Diagnosis WC POST OP Jhonatan Nelson MD [facility] 2 8:21AM 8:42AM Insurance Includes: Active Insurance Policies Plan Name Member ID Group # Subscriber Relationship Effect pierre Dates 1 - [email or web address] [id number] Ru Olivas [facility] 09/09/2020 - Unknown 2 - [employer] [id number] Ru Olivas [facility] 09/09/2020 - Unknown 3 - [facility] [id number] Ru Olivas [facility] 04/02/2016 - Unknown Clinical Notes Includes: Clinical Notes from this encounter No Clinical Notes Recorded
--- OUTSIDE RECORDS SUMMARY | 2023-10-21 08:06 | XMS_ITS | Clinical Summary ---
Author Name Unknown Address [address] [place] [address] [place] [address] Phone Organization [facility] Address [address] [place] [address] Phone Care Team Providers Care Chemical Laboratory Assistant Name Role Phone TIMO ZAMUDIO Primary Care Provider [phone] NO, PCP Unavailable Unavailable Jhonatan Nelson MD Unavailable [phone] Reason for Referral Date Encounter Description Provider [...] Documented On 1 8:09AM ; [facility], [facility] Joint Pain, Localized in the Left Shoulder 06/26/2016 Vitor Bill MD Active Last Documented On 7 2:39PM ; [facility] Plan of Treatment Patient is doing well. We will continue the patient on the same work restrictions. We will see him back in three weeks. - Last Documented On 03/17/2021 1:48PM ; [facility] Pending Tests Order Diagnosis Results Due Ordering P rovider Therapy - Occupational Therapy Wrist 03/16 Jhonatan Nelsno MD Last Documented On 1 1:48PM ; [facility], [facility] Instructions to patient Lose weight Last Documented On 1 11:32AM ; [facility] Assessments Includes: Assessments from this encounter Findings s/p excision volar ganglion cyst R wrist - Last Documented On 03/17/2021 1:48PM ; [facility] Instructions Includes: Instructions from this encounter Instructions to patient Lose weight Last Documented On 11:32AM ; [facility] Medical Equipment - Implanted Devices Includes: Current Devices No Medical Equipment Recorded Medications Includes: Medications discussed during this encounter and other current Medications Current Medications (continue as prescribed) Lexapro 10 MG Oral Tablet 09/27/2020 Provider: Diagnosis: Last Documented On 11:46AM By Mariaelena Wilcox ; [facility] Past Medications on file Ibuprofen 400 MG Oral Tablet 02/03/2021 - 02/06/2021 P jaxon: Jhonatan Nelson MD Diagnosis: Take 1 tablet every 8 hrs prn pain after surgery . Last Documented On 9:13AM By Dr. Nelson ; [facility] Medications Administered Includes: Administered Medications from this encounter No Administered Medications Recorded Vital Signs Includes: Vital Signs from this encounter Vital Name 03/16/2021 11:33A Blood Pressure Sitting (mmHg) 116/84 Pulse Rate-Sitting (bpm) 69 Height (in) 72 Weight (lb) 195 Body Mass Index (kg/m2) 26.4 Body Surface Area (m2) 2.1 Note: ss Last Documented: On 03/16/2021 11:33A M ; [facility] Results Includes: Results discussed during this encounter No Results Recorded For Specified Dates History of Present Illness Includes: History of Present Illness from this encounter KATHRYN Olivas is a 50 year old male. - Allergy list reviewed - Problem list reviewed - Medication reconciliation performed - Medication list reviewed with patient Patient is here today s/p excision volar ganglion cyst R wrist. He states he is doing well but is still a little sore. 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 09/27/2020 Last Documented On 11:32AM ; [facility] Non-smoker 09/27/2020 Last Documented On 11:32AM ; [facility] Not a current smoker 12/18/2018 Last Documented On 1 11:32AM ; [facility] Tobacco use 12/10/2017 Last Documented On 1 11:32AM ; [facility] Caffeine use 07/14/2016 Last Documented On 1 11:32AM ; [facility] Exercising regularly 07/14/2016 Last Documented On 1 11:32AM ; [facility], [facility] No recent change in diet 07/14/2016 Last Documented On 1 11:32AM ; [facility] Not using alcohol 07/14/2016 Last Documented On 1 11:32AM ; [facility] Not using drugs 07/14/2016 Last Documented On 1 11:32AM ; [facility], [facility] Smoking status : Current everyday smoker 07/14/2016 Last Documented On 1 11:32AM ; [facility], [facility] Procedures and Surgical History Includes: Procedures from this encounter Procedures Code Diagnosis Performing Provider Service L ocation Service Date use of tobacco assessment performed 1000F Last Documented On 1 11:32AM ; [facility], [facility] referral to physician see pcp for bp Last Documented On 1 11:32AM ; [facility], [facility] Medical History Includes: Medical History addressed during this encounter Description Last Updated Irregular Heartbeat 09/27/2020 Last Documented On 1 11:32AM ; [facility] No recent immunization for pneumococcal pneumonia 09/27/2020 Last Documented On 1 11:32AM ; [facility], [facility] Recent immunization for flu 03/26/2020 0 09/27/2020 Last Documented On 1 11:32AM ; [facility], [facility] A recent injection 12/10/2017 Last Documented On 1 11:32AM ; [facility], [facility] Septoplasty x2 ~Tonsils kaylie conchita ~Tubes in ears ~Heart cath x2 ~Ablaztion ~Irregular heartbeat 07/14/2016 Last Documented On 1 11:32AM ; [facility], [facility] Family History Includes: Family History addressed during this encounter Description Last Updated Family history of cancer 12/10/2017 Last Documented On 1 11:32AM ; [facility] Family history of heart disease 12/11/19 18 Last Documented On 1 11:32AM ; [facility], [facility] Paternal history of family history of ca ncer 07/14/2016 Last Documented On 1 11:32AM ; [facility], [facility] Paternal history of family history of he art disease 07/14/2016 Last Documented On 1 11:32AM ; [facility], [facility] Review of Systems Includes: Review of Systems [...] of seasonal allergic reaction. no ROS changes 03-16-21 The patient is awake alert oriented in time place and person. Has normal mood and affect. Is neatly dressed. Has normal gait and station. Pupils are equal and react to light normally. Eyes move normally. Mucous membranes are moist. The patient has no trouble with speech. Normal circulation. Incision is well healed. No sign of infection. Mental Status Includes: Mental Status from this encounter Description No anxiety Functional Status Includes: Functional Status from this encounter No Functional Status Recorded Physical Exam Includes: Physical Exam from this encounter Allergies Includes: Active Allergies No Known Allergies Encounters Encounter Provider Location Date Check-In Time Check-Out Time Diagnosis WC POST OP Jhonatan Nelson MD [facility] 1 10:40AM 11:47AM Insurance Includes: Active Insurance Policies Plan Name Member ID Group # Subscriber Relationship Effect pierre Dates 1 - [employer] [id number] [place] Brendon [facility] 09/09/2020 - Unknown 2 - [employer] [id number] Ru Victor Manuel Olivas [facility] 09/09/2020 - Unknown 3 - [facility] [id number] Ru Olivas Self 04/02/2016 - Unknown Clinical Notes Includes: Clinical Notes from this encounter No Clinical Notes Recorded
--- NOTE | 2023-10-21 08:24 | EXP.UTC ---
Discharge Plan Disposition Patient Disposition: Home, Self-Care Prescriptions Prescriptions: New olopatadine [Pataday Once Daily Relief] 0.2 % drops 1 drp ophthalmic (eye) DAILY PRN (Reason: itching) Qty: 2.5 0RF methylprednisolone [Medrol (Darnell)] 4 mg tablets,dose pack See Rx Instructions .Route .COMPLEX 6 Days Qty: 21 0RF Rx Instructions: taper pack; amoxicillin-pot clavulanate 875-125 mg Tablet 1 tab PO Q12H 10 Days Qty: 20 0RF No Action escitalopram oxalate [Lexapro] 20 mg tablet 20 mg PO DAILY meloxicam 7.5 mg tablet 7.5 mg PO DAILY Patient Comments: TAKE 1 TABLET BY MOUTH ONCE DAILY Referrals Follow up/Referrals: Provider,Referral, MD [Primary Care Provider] - See instructions Activity Restrictions/Add. Instructions Additional Instructions/Restrictions: *Monitor Temp, Over the counter Motrin or Tylenol as directed/as needed Tylenol every 4 hours and Motrin every 6 hours (as long as your family doctor has told you that you can take it) for fever or pain. and straight to ER if unable to lower temp less than 101.0 after medication given *Warm salt water gargles may help to soothe the throat *Throat Lozenges? *Warm fluids like tea with honey may help to soothe the throat?and help with nasal congestion??? *Sleep elevated *Humidifier/Vaporizer *Take medication as prescribed Follow up IMMEDIATELY for new or worsening symptoms or no Noticeable improvement over the next 48-72 hours. 911 for difficulty breathing or swallowing Clinical Impressions Clinical Impression: Sinusitis Instructions Patient Instructions: DI for Sinusitis, Sinusitis Discharge ED Provider: Beatris Schneider [facility] HPI General Stated complaint: congestion Mode of Arrival: Ambulatory Source of Information: Patient Limitations: No Limitations Time Seen by Provider: 10/21/23 08:24 Description of Symptoms (Recalled from Triage Doc. by RN): PATIENT C/O SNEEZING, RUNNY EYES, AND CONGESTION X 2 WEEKS. HE STATES HE WAS SEEN AT ANOTHER CLINIC ON SUNDAY AND RECEIVED A STEROID AND ANTIBIOTIC INJECTION BUT STATES HE IS NOT BETTER HEENT Symptoms (Recalled from RN notes): Yes Resp Symptoms (Recalled from RN notes): No Skin Symptoms (Recalled from RN notes): No MS Symptoms (Recalled from RN notes): No Functional Status (Recalled from RN notes): WNL History of Present Illness Provider Complaint: Patient states that he thinks he may have a bad sinus infection States for the last two week he has been having sinus pain and pressure, pressure behind his eyes, scratchy throat and over all not feeling well States was seen earlier in the week and was given steriod injection and antibiotic injection but has not helped Related Data Home Medications Medication Instructions Recorded Confirmed escitalopram oxalate 20 mg tablet 20 mg PO DAILY 10/17/23 10/21/23 (Lexapro) meloxicam 7.5 mg tablet 7.5 mg PO DAILY 10/17/23 10/21/23 Previous Rx's Medication Instructions Recorded amoxicillin 875 mg-potassium 1 tab PO Q12H 10 days #20 tabs 10/21/23 clavulanate 125 mg tablet methylprednisolone 4 mg tablets in See Rx Instructions .Route 10/21/23 a dose pack (Medrol (Darnell)) .COMPLEX 6 days #21 tabs olopatadine 0.2 % eye drops 1 drp ophthalmic (eye) DAILY PRN 10/21/23 (Pataday Once Daily Relief) itching #2.5 mL Allergies Allergy/AdvReac Type Severity Reaction Status Date / Time No Known Allergies Allergy Verified 10/17/23 09:45 Worker's Comp Is this a Worker's Comp case?: No [facility] Disclaimer: The information contained in this section may have been updated after the patient was seen, as this information can be updated by other users. Medical History Allergic rhinitis Acute viral syndrome Encounter for laboratory testing for COVID-19 virus Surgical History No significant past surgical history Family History Other No significant family history Social History Smoking Status: Never smoker alcohol intake: never substance use type: denies use current occupational status: other Travel in the last 8 weeks: None household members: family housing: house ROS Obtained: Yes All systems reviewed & no additional complaints except as documented and Yes Systems reviewed as appropriate & no additional complaints except as documented Constitutional Constitutional: Reports system reviewed and no additional complaints, except as documented and Reports as per HPI Eyes Eyes: Reports system reviewed and no additional complaints, except as documented, Reports as per HPI and Reports itchy eyes ENT Ears, Nose, Mouth, and Throat: Reports system reviewed and no additional complaints, except as documented, Reports as per HPI, Reports nasal congestion, Reports sinus pain, Reports sinus pressure and Reports sore throat Cardiovascular Cardiovascular: Reports system reviewed and no additional complaints, except as documented and Reports as per HPI Respiratory Respiratory: Reports system reviewed and no additional complaints, except as documented and Reports as per HPI Gastrointestinal Gastrointestingal: Reports system reviewed and no additional complaints, except as documented and as per HPI Genitourinary Male Genitourinary: Reports system reviewed and no additional complaints, except as documented and Reports as per HPI Allergic/Immunologic Allergic/Immunologic: Reports itchy eyes Physical Exam General General appearance: alert and in no apparent distress ENT ENT exam: Present mucous membranes moist Expanded ENT Exam Nose exam: Present sinus tenderness Throat exam: Present other (Pharyngeal erythema noted with PND) Respiratory Respiratory exam: Present normal lung sounds bilaterally; Absent respiratory distress or wheezes Cardiovascular Cardiovascular exam: Present regular rate, normal rhythm and normal heart sounds Neurological Exam Neurological exam: Present alert, oriented X3 and normal gait Medical Decision Making Marcel Inquiry Pt receiving controlled substance: No Marcel was queried for this patient: No Vital Signs: 10/21/23 08:05 Temperature 98.0 F Temperature Source Oral Pulse Rate [Left Brachial] 61 Respiratory Rate 20 Blood Pressure [Left Arm] 138/90 Blood Pressure Mean [Left Arm] 106 Blood Pressure Source [Left Arm] Automatic Cuff Blood Pressure Position [Left Arm] Sitting 02 Sat by Pulse Oximetry 100 Oxygen Delivery Method Room Air
[2023-10-21 08:34] VITALS: BP 138/90; PULSE 61; RESP 20; TEMP 36.7; O2SAT 100
== END 2023-10-21 08:36 | disposition home or self-care (01) ==
PROVIDERS: Emergency Provider Nurse Practitioner
DX: J01.90 Acute sinusitis, unspecified (principal); R07.0 Pain in throat
CPT/HCPCS: 99212; 99214; G0463

== ENCOUNTER 2024-05-01 09:00 | Outpatient (RCR) | payer OTHER, BC, SELFPAY | END 2024-05-01 23:59 | disposition home or self-care (01) | LOC: OT 09:00 | PROVIDERS: Visit Provider Physician Assistant | DX: Z98.890 Other specified postprocedural states (principal); M25.511 Pain in right shoulder | CPT/HCPCS: 97014; 97110; 97140; 97165; G0283 ==

== ENCOUNTER 2024-05-02 07:59 | Emergency (ER) | payer BC, SELFPAY ==
[2024-05-02 08:10] VITALS: BP 134/86; PULSE 87; RESP 19; TEMP 36.9; O2SAT 98; BMI 26.9
--- NOTE | 2024-05-02 08:21 | EXP.UTC ---
Discharge Plan Disposition Patient Disposition: Home, Self-Care Condition: Good Prescriptions Prescriptions: No Action escitalopram oxalate [Lexapro] 20 mg tablet 20 mg PO DAILY oxycodone 5 mg tablet 5 mg PO DAILYP PRN (Reason: Pain) Referrals Follow up/Referrals: Sisi Catherine [Primary Care Provider] - See instructions Activity Restrictions/Add. Instructions Additional Instructions/Restrictions: Drink plenty of fluids. Follow up with your primary care physician at [facility] as dicsussed. GO TO THE ER FOR ANY WORSENING SYMPTOMS Clinical Impressions Clinical Impression: Abdominal pain, acute, right upper quadrant Instructions Patient Instructions: DI for Abdominal Pain-Adult Print Language Print Language: Citizen Of [place] Discharge ED Provider: Lane Adler [facility] General Stated complaint: pain in right side/lower back Mode of Arrival: Ambulatory Source of Information: Patient Limitations: No Limitations Time Seen by Provider: 05/02/24 08:21 Description of Symptoms (Recalled from Triage Doc. by RN): PATIENT C/O PAIN TO RIGHT FLANK AREA THAT STARTED 2-3 WEEKS AGO, NO KNOWN INJURY. PATIENT STATES HE HAD RIGHT SHOULDER SURGERY ON 03/19 AND REPORTS HIS CREATININE WAS ELEVATED ON PRE-OP BLOOD WORK, BUT DENIES ANY PROBLEMS WITH URINATION. PATIENT STATES HIS PAIN IS WORSE WHEN LYING DOWN AND TAKING A DEEP BREATH HEENT Symptoms (Recalled from RN notes): No Resp Symptoms (Recalled from RN notes): No Skin Symptoms (Recalled from RN notes): No MS Symptoms (Recalled from RN notes): Yes Functional Status (Recalled from RN notes): WNL History of Present Illness Provider Complaint: He states that for the past 3 weeks he has had right upper quadrant abdominal tenderness. He denies accompanying symptoms such as n/v/d, constipation, urinary symptoms. He denies any known injury. Related Data Home Medications ?Medication ?Instructions ?Recorded ?Confirmed escitalopram oxalate 20 mg tablet 20 mg PO DAILY 10/17/23 05/02/24 (Lexapro) oxycodone 5 mg tablet 5 mg PO DAILYP PRN Pain 05/02/24 05/02/24 Allergies Allergy/AdvReac Type Severity Reaction Status Date / Time No Known Allergies Allergy Verified 10/17/23 09:45 Worker's Comp Is this a Worker's Comp case?: No [facility] Disclaimer: The information contained in this section may have been updated after the patient was seen, as this information can be updated by other users. Medical History Allergic rhinitis Acute viral syndrome Encounter for laboratory testing for COVID-19 virus Surgical History No significant past surgical history Family History Other No significant family history Social History Smoking Status: Never smoker alcohol intake: never substance use type: denies use current occupational status: other Travel in the last 8 weeks: None household members: family housing: house Have you lived/traveled outside US in past 30 days?: No Contact w/someone who lives/traveled outside US past 30 days?: No Exposure to someone with infectious disease in past 14 days?: No Do you have a fever (greater than 100.4 F or 38 C)?: No Have you tested positive for COVID-19: No Exposed to someone with COVID-19 in past 14 days?: No Do you have a sore throat?: No Do you have a cough?: No Do you have any weakness?: No Do you have any diarrhea?: No Are you experiencing any unusual bleeding?: No Do you have any muscle aches/pain?: No Do you have any abdominal pain?: No Are you experiencing loss of taste or smell?: No ROS Obtained: Yes All systems reviewed & no additional complaints except as documented Constitutional Constitutional: Denies chills and Denies fever(s) Eyes Eyes: Denies eye discharge ENT Ears, Nose, Mouth, and Throat: Denies dizziness, Denies otalgia and Denies sore throat Cardiovascular Cardiovascular: Denies chest pain Respiratory Respiratory: Denies shortness of breath, Denies chest congestion, Denies cough, Denies stridor and Denies wheezing Gastrointestinal Gastrointestingal: Denies nausea or vomiting Musculoskeletal Musculoskeletal: Reports system reviewed and no additional complaints, except as documented and Denies arthralgias Integumentary/Breasts Skin/Breast: Denies rash Neurologic Neurologic: Denies dizziness and Denies paresthesias Allergic/Immunologic Allergic/Immunologic: Denies wheezing Physical Exam General General appearance: alert and in no apparent distress Head Head exam: atraumatic, normocephalic and normal inspection Eye Eye exam: Present normal appearance, PERRL and EOMI ENT ENT exam: Present normal exam, normal oropharynx, mucous membranes moist, TM's normal bilaterally and normal external ear exam Neck Neck exam: Present normal inspection, full ROM and trachea midline; Absent meningismus or lymphadenopathy Chest Chest inspection: Present normal inspection and symmetric chest wall rise; Absent tenderness Respiratory Respiratory exam: Present normal lung sounds bilaterally; Absent respiratory distress Cardiovascular Cardiovascular exam: Present regular rate and normal rhythm; Absent JVD Abdominal Exam Abdominal exam: Present soft, tenderness, normal bowel sounds and Hilton's sign; Absent distention, guarding, rebound, rigidity, psoas sign, obturator sign, heel tap sign, Rovsing's sign or tenderness at McBurney's Point Extremities Exam Extremities exam: Present normal inspection, full ROM and normal capillary refill; Absent calf tenderness Back Exam Back exam: Present normal inspection; Absent tenderness Neurological Exam Neurological exam: Present alert and oriented X3 Psychiatric Psychiatric exam: Present normal affect and normal mood Skin Skin exam: Present warm, dry, intact and normal color Lymphatic Lymphatic Findings: no adenopathy Medical Decision Making Medical Records Medical records reviewed: No I reviewed the patient's medical records. Screening: Per USPSTF and CDC recommendations, given the prevalence of disease in our region, it is our hospital?s policy to screen for HIV and viral Hepatitis for all patients aged 18 and over and those with ongoing risk factors. Marcel Inquiry Pt receiving controlled substance: No Vital Signs: 05/02/24 08:10 Temperature 98.4 F Temperature Source Oral Pulse Rate [Left Brachial] 87 Respiratory Rate 19 Blood Pressure [Left Arm] 134/86 Blood Pressure Mean [Left Arm] 102 Blood Pressure Source [Left Arm] Automatic Cuff Blood Pressure Position [Left Arm] Sitting 02 Sat by Pulse Oximetry 98 Oxygen Delivery Method Room Air Medical Decision Narrative: He refused any lab test today. He requests a ct scan, but he refuses transfer to the ER. He states that if he can't get a CT scan here he will just follow up at [facility] to have all the testing done at once.
[2024-05-02 08:25] LABS: Apearance,Urine Clear (Clear); Bilirubin,Urine Negative (Negative); Blood, Urine Negative (Negative); Color,Urine Yellow (Yellow); Glucose,Urine (UA) Negative (Negative); Ketones,Urine Negative (Negative); Protein,Urine Negative (Negative); Specific Gravity, Urine 1.025 (1.005-1.030); UTC Leukocyte Esterase,Urine Negative (Negative); UTC Nitrate,Urine Negative (Negative); Urobilinogen,Urine 0.2 EU/dl (0.2)
[2024-05-02 09:00] VITALS: BP 134/86; PULSE 87; RESP 19; TEMP 36.9; O2SAT 98
== END 2024-05-02 09:02 | disposition home or self-care (01) ==
PROVIDERS: Emergency Provider Nurse Practitioner Family; PCP Nurse Practitioner Family
DX: R10.11 Right upper quadrant pain (principal)
CPT/HCPCS: 81003; 99213; G0381

== ENCOUNTER 2024-05-11 11:35 | Observation (INO) | payer BC, SELFPAY ==
[2024-05-11] VITALS (34 sets, daily range): BP systolic 112–142; BP diastolic 69–86; PULSE 52–79; RESP 10–26; TEMP 36.4–36.8; O2SAT 93–100; BMI 26.4
--- NOTE | 2024-05-11 11:36 | ECG_ITS ---
APPROVED REPORT Exam: Resting ECG HR:76 bpm ECG Measurements Heart Rate 76 AXES OK 146 P 22 QRSd 86 QRS 40 QT 382 T 39 QTc 413 Conclusion SINUS RHYTHM NONSPECIFIC T-WAVE ABNORMALITY BORDERLINE ECG Electronically signed by : RAYSHAWN DUFF, 05/11/2024 23:24:40
--- NOTE | 2024-05-11 11:41 | PC.NURSE ---
Pt is refusing to allow staff to start an IV or obtain blood draw. States he will want to talk to the doctor or someone else first . Dr. Figueroa let known of this.
--- NOTE | 2024-05-11 11:55 | PC.NURSE ---
DR WALKER AT BEDSIDE
--- NOTE | 2024-05-11 11:56 | PC.NURSE ---
DR WALKER AT BEDSIDE
--- NOTE | 2024-05-11 12:02 | XR_ITS ---
PROCEDURE INFORMATION: Exam: XR Chest Exam date and time: 05/11/2024 12:00 PM Age: 53 years old Clinical indication: Pain; Chest pressure; Additional info: L chest pain worse with inspiration TECHNIQUE: Imaging protocol: Radiologic exam of the chest. Views: 2 views. COMPARISON: No relevant prior studies available. FINDINGS: Lungs: Low lung volumes with bronchovascular crowding . Right hemidiaphragm is mildly elevated. No focal consolidation. Pleural spaces: No pneumothorax or pleural effusion. Heart/Mediastinum: Cardiomediastinal silhouette is unremarkable. Bones/joints: No acute osseous or soft tissue abnormality. IMPRESSION: Low lung volumes with bronchovascular crowding.
--- NOTE | 2024-05-11 12:03 | HMH.EDCP ---
Discharge Plan Disposition Patient Disposition: Admitted Chief Complaint: Chest Pain Prescriptions Prescriptions: No Action No Known Home Medications Referrals Follow up/Referrals: Provider,Referral, [Primary Care Provider] - See instructions Clinical Impressions Clinical Impression: Multiple pulmonary emboli, Multiple pulmonary nodules Print Language Print Language: Algerian Discharge ED Provider: Edwin Figueroa General Chief Complaint: Chest Pain Stated Complaint: cp Time Seen by Provider: 05/11/24 11:39 Mode of Arrival: Ambulatory Source of Information: Patient Limitations: No Limitations Description of Symptoms (Recalled from ER Triage Doc. by RN): Patient immediately bedded upon reporting chest pain to registration. Patient states he started having left sided chest pain this morning at 0200. States, I've had pleurisy before, and it feels similar. Denies N/V. No diaphoresis noted. Denies radiation. States the pain is worsened by bending over or twisting; pain then involves the entire chest. Patient states he has taken Naproxen prior to arrival. History of Present Illness HPI narrative: Patient is a 53-year-old male with past medical history of WPW status post ablation presents emergency department for evaluation of left-sided chest pain. Onset was acute, since this morning, moderate to severe in intensity, stabbing. It is worse with deep inspiration. He does not have any infectious symptoms such as cough or rhinorrhea or vomiting. It is also worse with movement. Only mildly tender. It does not radiate through to his back. No other acute complaints at this time. Related Data Home Medications ?Medication ?Instructions ?Recorded ?Confirmed No Known Home Medications 05/11/24 05/11/24 Allergies Allergy/AdvReac Type Severity Reaction Status Date / Time No Known Allergies Allergy Verified 10/17/23 09:45 [facility] Disclaimer: The information contained in this section may have been updated after the patient was seen, as this information can be updated by other users. Medical History Allergic rhinitis Acute viral syndrome Encounter for laboratory testing for COVID-19 virus Surgical History No significant past surgical history Family History Other No significant family history Social History Smoking Status: Never smoker alcohol intake: never substance use type: denies use current occupational status: other Travel in the last 8 weeks: None household members: family housing: house Have you lived/traveled outside US in past 30 days?: No Contact w/someone who lives/traveled outside US past 30 days?: No Exposure to someone with infectious disease in past 14 days?: No Do you have a fever (greater than 100.4 F or 38 C)?: No Have you tested positive for COVID-19: No Exposed to someone with COVID-19 in past 14 days?: No Do you have a sore throat?: No Do you have a cough?: No Do you have any weakness?: No Do you have any diarrhea?: No Are you experiencing any unusual bleeding?: No Do you have any muscle aches/pain?: No Do you have any abdominal pain?: No Are you experiencing loss of taste or smell?: No Other Medical History Have you received the Pneumonia Vaccine: No ROS Obtained: Yes Systems reviewed as appropriate & no additional complaints except as documented Physical Exam General General appearance: alert and in no apparent distress Head Head exam: atraumatic and normocephalic Eye Eye exam: Present PERRL ENT ENT exam: Present mucous membranes moist Neck Neck exam: Present normal inspection Chest Chest inspection: Present normal inspection and symmetric chest wall rise Respiratory Respiratory exam: Present normal lung sounds bilaterally; Absent respiratory distress, wheezes or stridor Cardiovascular Cardiovascular exam: Present regular rate, normal rhythm and other (Mild left-sided chest wall tenderness without overlying bruising, no crepitus) Abdominal Exam Abdominal exam: Present soft; Absent tenderness Extremities Exam Extremities exam: Present normal inspection Neurological Exam Neurological exam: Present alert Psychiatric Psychiatric exam: Present normal affect Skin Skin exam: Present warm and dry HEART Score HEART Score HEART Score assessment performed?: Yes History (anamnesis): Slightly suspicious ECG: Non-specific disturbance Age: 45-65 years Risk factors: 1-2 risk factors Troponin: </= normal limit HEART Score: 3 Critical Care Critical Care Time Critical Care Time: Yes Attestation: On 05/11/24, the high probability of a clinically significant, sudden or life threatening deterioration of the following system(s) required my full and direct attention, intervention and personal management. The time I documented below is in addition to time spent performing reported procedures but includes the following listed in this critical care notation. Total Time Total Critical Care Time: 35 Medical Decision Making Marcel Inquiry Pt receiving controlled substance: No Vital Signs Vital Signs: 05/11/24 11:35 05/11/24 11:36 05/11/24 11:45 Temperature 97.6 F Temperature Source Oral Pulse Rate 76 66 Pulse Rate [Radial] 74 Respiratory Rate 16 17 17 Blood Pressure Blood Pressure [R Arm] 142/86 H Blood Pressure Mean [R Arm] 104 Blood Pressure Source [R Arm] Automatic Cuff Blood Pressure Position [R Arm] Supine 02 Sat by Pulse Oximetry 100 100 100 Oxygen Delivery Method Room Air 05/11/24 12:00 05/11/24 12:15 05/11/24 12:30 Temperature Temperature Source Pulse Rate 76 66 70 Pulse Rate [Radial] Respiratory Rate 18 18 15 Blood Pressure Blood Pressure [R Arm] Blood Pressure Mean [R Arm] Blood Pressure Source [R Arm] Blood Pressure Position [R Arm] 02 Sat by Pulse Oximetry 98 100 97 Oxygen Delivery Method 05/11/24 12:43 05/11/24 12:45 05/11/24 13:00 Temperature Temperature Source Pulse Rate 66 66 67 Pulse Rate [Radial] Respiratory Rate 18 17 Blood Pressure 118/75 Blood Pressure [R Arm] Blood Pressure Mean [R Arm] Blood Pressure Source [R Arm] Blood Pressure Position [R Arm] 02 Sat by Pulse Oximetry 98 96 97 Oxygen Delivery Method 05/11/24 13:24 05/11/24 13:30 05/11/24 13:45 Temperature Temperature Source Pulse Rate 60 65 64 Pulse Rate [Radial] Respiratory Rate 16 23 15 Blood Pressure Blood Pressure [R Arm] Blood Pressure Mean [R Arm] Blood Pressure Source [R Arm] Blood Pressure Position [R Arm] 02 Sat by Pulse Oximetry 100 98 100 Oxygen Delivery Method 05/11/24 14:00 Temperature Temperature Source Pulse Rate 59 L Pulse Rate [Radial] Respiratory Rate 16 Blood Pressure Blood Pressure [R Arm] Blood Pressure Mean [R Arm] Blood Pressure Source [R Arm] Blood Pressure Position [R Arm] 02 Sat by Pulse Oximetry 98 Oxygen Delivery Method Lab Data Labs: Lab Results 05/11/24 12:06: WBC 4.7 L, RBC 5.14, Hgb 14.8, Hct 44.8, MCV 87.2, MCH 28.8, MCHC 33.0, RDW 12.2, Plt Count 209, MPV 9.5, Neut % (Auto) 59.4, Lymph % (Auto) 27.7, [place] % (Auto) 8.0, Eos % (Auto) 4.3, Baso % (Auto) 0.4, Neut # (Auto) 2.8, Lymph # (Auto) 1.3, [place] # (Auto) 0.4, Eos # (Auto) 0.2, Baso # (Auto) 0.0, D-Dimer 1.77 H, Sodium 141, Potassium 4.3, Chloride 102, Carbon Dioxide 28, Anion Gap 15.3 H, BUN 16, Creatinine 1.10, Estimated Creat Clear 97, Estimated GFR 70, Est GFR ( Amer) 85, Glucose 95, Calcium 9.1, Total Bilirubin 0.6, AST 27, ALT 30, Alkaline Phosphatase 79, Troponin I < 0.01, Total Protein 6.4, Albumin 4.0, Globulin 2.4, Albumin/Globulin Ratio 1.7, HCV Ab ELIZABETH w/Rflx PCR Qn Negative, HIV Ag/Ab Combo Qual Negative 05/11/24 12:06 05/11/24 12:06 Response Orders (Tests/Meds): ED MEDICATIONS Generic Name Dose Route Start Last Admin Trade Name Freq PRN Reason Stop Dose Admin Enoxaparin Sodium 90 mg 05/11/24 14:30 05/11/24 14:36 Enoxaparin 100mg/Ml Syringe 1 mg/kg (90 mg) 06/10/24 14:29 90 mg SUBCUT Administration Q12H PAUL Nitroglycerin 0.4 mg 05/11/24 11:42 Nitroglycerin 0.4mg Sl Tablet SL 05/12/24 11:42 Q5MINP PRN Chest Pain Discontinued Medications Generic Name Dose Route Start Last Admin Trade Name Freq PRN Reason Stop Dose Admin Acetaminophen 1,000 mg 05/11/24 12:02 05/11/24 12:20 Acetaminophen 500mg Tab PO 05/11/24 12:03 1,000 mg ONCE ONE Administration Aspirin 324 mg 05/11/24 11:42 05/11/24 12:19 Aspirin 81mg Chewable Tablet PO 05/11/24 11:43 324 mg ONCE ONE Administration Iopamidol 70 ml 05/11/24 13:25 05/11/24 13:26 Iopamidol-370 (76%);100ml Bottle IV 05/11/24 13:26 70 ml ONCE ONE Administration Ketorolac Tromethamine 30 mg 05/11/24 12:02 05/11/24 12:20 Ketorolac 30mg/Ml Vial IV 05/11/24 12:03 30 mg ONCE ONE Administration Oxycodone HCl 5 mg 05/11/24 14:29 05/11/24 14:35 Oxycodone 5mg Immediate Release Tablet PO 05/11/24 14:30 5 mg ONCE ONE Administration Sodium Chloride 10 ml 05/11/24 13:25 05/11/24 13:26 Sodium Chloride 0.9% 10ml Syr (Rad Only) IV 05/11/24 13:26 10 ml ONCE ONE Administration Sodium Chloride 50 ml 05/11/24 13:25 05/11/24 13:26 0.9 % Sodium Chloride 50 Ml Vial IV 05/11/24 13:26 50 ml ONCE ONE Administration ORDERS Category Date Time Status CT angio chest PE protocol Stat Cat Scan 05/11/24 12:56 Completed CXR 2 view (NOT portable) [XR chest 2V] Stat Exams 05/11/24 12:02 Completed Complete Blood Count Auto Diff Stat Lab 05/11/24 12:06 Completed Comprehensive Metabolic Panel Stat Lab 05/11/24 12:06 Completed D-Dimer Stat Lab 05/11/24 12:06 Completed HIV Combo Stat Lab 05/11/24 12:06 Completed Hepatitis C Ab Qual. W/ RFX Stat Lab 05/11/24 12:06 Completed Troponin I Q3H Lab 05/11/24 14:45 Ordered Troponin I Q3H Lab 05/11/24 17:45 Ordered Troponin I Stat Lab 05/11/24 12:06 Completed ECG Data Tracing #1: ECG Narrative: Independently interpreted by me, rate is 76, rhythm is regular, axis is normal, no ST elevation in anatomical contiguous leads, QTc 413. MDM Narrative Medical Decision Narrative: In summary patient is a 53-year-old male past medical history described above who presents emergency department for evaluation of chest pain. Patient is hemodynamically stable nontoxic-appearing upon arrival, afebrile. EKG nonischemic at bedside. Differential diagnosis includes costochondritis, pleurisy, large pneumothorax, ACS, pulmonary embolism, among others. Workup will be conducted with hematologic labs, two-view chest x-ray, EKG, serial troponins. Initial inventions include aspirin, nitroglycerin, Toradol, Tylenol. Initial workup reviewed by me, no significant leukocytosis or anemia. D-dimer is elevated at 1.[address] imaging to rule out pulmonary embolism. Initial troponin undetectably low. CT imaging informally visualized by me, there appears to be a left segmental pulmonary embolism in the left upper lobe. I had an interactive discussion with virtual radiology, patient has bilateral upper bilateral lower and right middle lobe segmental and subsegmental pulmonary embolisms. There is a concerning subpleural nodule at the right lung base and left lower lobe which may be infectious inflammatory versus malignancy. Patient be given 1 mg/kg Lovenox. No evidence of right heart strain. I discussed case with hospital medicine regarding management patient be admitted to their service for continued investigation at this time.
--- NOTE | 2024-05-11 12:11 | PC.NURSE ---
pT WAS NOT AMIABLE TO PLACING IV AND OBTAINING BLOODWORK ORDERED PER md. 18G lac PLACED, BLOOD SENT TO LAB.
[2024-05-11 12:13] LABS: Basophils % 0.4 % (0.1-2.0); Eosinophils # 0.2 K/mm3 (0.0-0.4); Eosinophils % 4.3 % (0.1-12.0); Hematocrit 44.8 % (42.0-52.0); Hemoglobin 14.8 g/dL (14.1-18.0); Lymphocytes # 1.3 K/mm3 (0.7-4.5); Lymphocytes % 27.7 % (10-50); Mean Corpuscular Hemoglobin 28.8 pg (27.0-31.2); Mean Corpuscular Volume 87.2 fl (80-94); Mean Platelet Volume 9.5 fl (7.4-10.4); Monocytes # 0.4 K/mm3 (0.1-1.0); Neutrophils # 2.8 K/mm3 (1.8-7.8); Neutrophils % 59.4 % (37.0-80.0); Platelet Count 209 K/mm3 (142-424); Red Blood Count 5.14 M/mm3 (4.60-6.20); Red Cell Distribution Width 12.2 % (11.5-17.5); White Blood Count 4.7 K/mm3 (4.8-10.8)
--- NOTE | 2024-05-11 12:13 | INFXCTL.NOTE ---
PT IS BACK IN THE ROOM FROM XRAY
[2024-05-11] MEDS: ASPIRIN 81MG CHEWABLE TABLET 324 MG PO (12:19)
[2024-05-11] MEDS: ACETAMINOPHEN 500MG TAB 1000 MG PO (12:20)
[2024-05-11] MEDS: KETOROLAC 30MG/ML VIAL 30 MG IV (12:20)
[2024-05-11 12:22] LABS: Alanine Aminotransferase 30 U/L (12-78); Albumin/Globulin Ratio 1.7 (1.1-1.8); Alkaline Phosphatase 79 U/L (38-126); Aspartate Amino Transferase 27 U/L (17-59); Bilirubin,Total 0.6 mg/dl (0.2-1.3); Blood Urea Nitrogen 16 mg/dl (9-20); Calcium 9.1 mg/dl (8.4-10.2); Carbon Dioxide 28 mmol/L (22.0-30.0); Chloride 102 mmol/L (98-107); Creatinine Clearance Estimated 97 mL/min (50-200); Estimated Glomerular Filt Rate 70 ml/min (>60); GFR (African American) 85 ML/MIN (>60); Globulin 2.4 g/dL (1.3-3.2); Glucose 95 mg/dl (74-100); Sodium 141 mmol/L (136-145); Total Protein,Serum 6.4 g/dl (6.3-8.2)
[2024-05-11 12:27] LABS: D-Dimer 1.77 ug/mL (0.0-0.5)
[2024-05-11 12:33] LABS: Anion Gap 15.3 mEq/L (5-15); Potassium 4.3 mmoL/L (3.5-5.1)
[2024-05-11 12:37] LABS: Troponin I < 0.01 ng/ml (0.00-0.034)
--- NOTE | 2024-05-11 12:56 | CT_ITS ---
PROCEDURE INFORMATION: Exam: CTA Chest With Contrast Exam date and time: 05/11/2024 1:20 PM Age: 53 years old Clinical indication: Other: L parasternal chest pain TECHNIQUE: Imaging protocol: Computed tomographic angiography of the chest with contrast. Exam focused on the arteries. 3D rendering (Not supervised by radiologist): MIP and/or 3D reconstructed images were created by the technologist. Radiation optimization: All CT scans at this facility use at least one of these dose optimization techniques: automated exposure control; mA and/or kV adjustment per patient size (includes targeted exams where dose is matched to clinical indication); or iterative reconstruction. Contrast material: ISOVUE; Contrast volume: 70 ml; Contrast route: INTRAVENOUS (IV); COMPARISON: CR XR CHEST 2V 05/11/2024 12:00 PM FINDINGS: Pulmonary arteries: Filling defects suspicious for pulmonary emboli in right upper lobe segmental and subsegmental, central right lower lobe subsegmental, left upper lobe segmental and subsegmental, and left lower lobe subsegmental arteries. Aorta: Unremarkable. No aortic aneurysm. No aortic dissection. Lungs: Mild apical predominant centrilobular emphysema. Subtle patchy subpleural ground-glass foci in the anterior left upper lobe (image 47 series 5). Subpleural nodule in the right lung base measuring 1.6 x 1.8 cm. Subpleural contiguous subpleural nodules versus nodular pleural thickening in the peripheral left lower lobe on image 86 series 5, measuring 3.9 cm AP by 9 mm in thickness . Pleural spaces: No pleural effusion or pneumothorax. Heart: No evidence of cardiac strain. RV/LV ratio is 1/1. Normal heart size. No pericardial fluid. Lymph nodes: Unremarkable. No enlarged lymph nodes. Spleen: Multiple punctate calcified granulomas in the spleen. Intraperitoneal space: Upper abdomen otherwise unremarkable. Bones/joints: Unremarkable. No acute fracture. Soft tissues: Unremarkable. IMPRESSION: 1. Pulmonary emboli in the bilateral upper, right middle, bilateral lower lobe segmental and subsegmental arteries. 2. No evidence of cardiac strain. 3. Mild emphysema. 4. Subtle patchy ground-glass foci in the anterior left upper lobe. 18 mm nodule in the right lung base. Mild subpleural nodules versus nodular pleural thickening in the peripheral left lower lobe. These may be infectious or inflammatory. Malignancy not excluded. Recommend imaging follow-up after treatment to ensure resolution. 5. For patients at low risk (minimal or absent history of smoking and of other known risk factors), recommend CT Chest at 3-6 months, then consider CT Chest at 18-24 months. For patients at high risk (history of smoking or of other known risk factors), recommend CT Chest at 3-6 months, then CT Chest at 18-24 months. (Reference: Merary) COMMENTS: 1. THIS REPORT CONTAINS FINDINGS THAT MAY BE CRITICAL TO PATIENT CARE. The exam findings were verbally communicated by me to QUE WALKER via telephone conference at 2:21 PM EST on 05/11/2024. The findings were acknowledged and understood. 2. The presence of pulmonary emphysema on CT is an independent risk factor for lung cancer. In the absence of a history or active diagnosis of lung cancer, it is recommended that this patient with emphysema be evaluated for enrollment in a low dose CT lung cancer screening program. REFERENCES: Merary Nixon et al. Guidelines for Management of Incidental Pulmonary Nodules Detected on CT Images: From the Fleischner Society 2017. Radiology. 2017;284(1):228-243.
--- NOTE | 2024-05-11 12:57 | PC.NURSE ---
DR WALKER AT BEDSIDE TO UPDATE PT ON POC
[2024-05-11 13:09] LABS: HIV Combo NEGATIVE (Negative)
[2024-05-11 13:17] LABS: Hepatitis C Ab Qual. W/ RFX NEGATIVE (Negative)
[2024-05-11] MEDS: IOPAMIDOL-370 (76%);100ML BOTTLE 70 ML IV (13:26)
[2024-05-11] MEDS: 0.9 % SODIUM CHLORIDE 50 ML VIAL IV (13:26)
[2024-05-11] MEDS: SODIUM CHLORIDE 0.9% 10ML SYR (RAD ONLY) 10 ML IV (13:26)
--- NOTE | 2024-05-11 13:49 | PC.NURSE ---
ROUNDED ON THE PT. THE PT VOICES THAT HE DOES NOT NEED ANYTHING AT THIS TIME. CALL LIGHT IS WITHIN REACH OF THE PT.
--- NOTE | 2024-05-11 14:03 | PC.NURSE ---
patient refuses blood pressure cuff.
--- NOTE | 2024-05-11 14:19 | PC.NURSE ---
Dr. Figueroa speaking with [facility].
--- NOTE | 2024-05-11 14:27 | PC.NURSE ---
DR WALKER AT BEDSIDE TO UPDATE PT
--- NOTE | 2024-05-11 14:29 | PC.NURSE ---
DR WALKER AT BEDSIDE
[2024-05-11] MEDS: OXYCODONE 5MG IMMEDIATE RELEASE TABLET 5 MG PO (14:35)
[2024-05-11] MEDS: ENOXAPARIN 100MG/ML SYRINGE 90 MG SUBCUT (14:36)
--- NOTE | 2024-05-11 14:41 | PC.NURSE ---
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
--- NOTE | 2024-05-11 14:59 | EXP.HP ---
History of Present Illness *Admission Date: 05/11/24 *Reason for visit:: left upper chest pain, dyspnea *History of present illness: Mr. Olivas is a 53-year-old male with history of right shoulder surgery 8 weeks ago due to rotator cuff tear. Otherwise healthy and only on Lexapro for depression/anxiety. He presented to the ER due to complaint of left upper chest pain and some shortness of breath. States the pain woke him this morning at about 2 AM. Has had pleurisy in the past and said it felt similar. Denies nausea, vomiting, abdominal pain. No diaphoresis, referred pain. Worse with twisting and bending. Not necessarily worse with exertion. Does have increased dyspnea with exertion. Workup in the ER with labs and imaging, patient has multiple PEs on CTA. Initial troponin negative. No signs of right heart strain on EKG. Patient initiated on Lovenox and medicine was consulted for admission and further management. On arrival to the floor, patient admitted to ICU due to risk for decompensation. Comfortable in bed on room air. Heart rate in the 50s. Family at bedside. [facility] Disclaimer: The information contained in this section may have been updated after the patient was seen, as this information can be updated by other users. Medical History Allergic rhinitis Acute viral syndrome Encounter for laboratory testing for COVID-19 virus Surgical History No significant past surgical history Family History Other No significant family history Social History Smoking Status: Never smoker alcohol intake: never substance use type: denies use current occupational status: other Travel in the last 8 weeks: None household members: family housing: house Have you lived/traveled outside US in past 30 days?: Yes Contact w/someone who lives/traveled outside US past 30 days?: No Exposure to someone with infectious disease in past 14 days?: No Do you have a fever (greater than 100.4 F or 38 C)?: No Have you tested positive for COVID-19: No Exposed to someone with COVID-19 in past 14 days?: No Do you have a sore throat?: No Do you have a cough?: No Do you have any weakness?: No Are you experiencing any nausea/vomitting?: No Do you have any diarrhea?: No Are you experiencing any unusual bleeding?: No Do you have any muscle aches/pain?: No Do you have any abdominal pain?: No Are you experiencing loss of taste or smell?: No Other Medical History Have you received the Pneumonia Vaccine: No Review of Systems Review of Systems Review of systems (narrative): 14 point review of systems performed, pertinent positives and negatives as per HPI Meds Home Medications and Allergies Home Medications ?Medication ?Instructions ?Recorded ?Confirmed ?Type escitalopram oxalate 20 mg tablet 10 mg PO DAILY 05/11/24 05/11/24 History oxycodone 5 mg tablet 5 mg PO Q4HP PRN Pain 05/11/24 05/11/24 History New Prescriptions to Start Prescriptions: Allergies Allergy/AdvReac Type Severity Reaction Status Date / Time No Known Allergies Allergy Verified 10/17/23 09:45 Exam Data for Last 24 hours Vital signs and Labs for Last 24 Hours: Temp Pulse Resp BP Pulse Ox O2 Del Method 97.6 F 59 L 16 118/75 98 Room Air 05/11/24 11:35 05/11/24 14:00 05/11/24 14:00 05/11/24 12:43 05/11/24 14:00 05/11/24 11:35 Laboratory Results - last 24 hr 05/11/24 12:06: WBC 4.7 L, RBC 5.14, Hgb 14.8, Hct 44.8, MCV 87.2, MCH 28.8, MCHC 33.0, RDW 12.2, Plt Count 209, MPV 9.5, Neut % (Auto) 59.4, Lymph % (Auto) 27.7, [place] % (Auto) 8.0, Eos % (Auto) 4.3, Baso % (Auto) 0.4, Neut # (Auto) 2.8, Lymph # (Auto) 1.3, [place] # (Auto) 0.4, Eos # (Auto) 0.2, Baso # (Auto) 0.0, D-Dimer 1.77 H, Sodium 141, Potassium 4.3, Chloride 102, Carbon Dioxide 28, Anion Gap 15.3 H, BUN 16, Creatinine 1.10, Estimated Creat Clear 97, Estimated GFR 70, Est GFR ( Amer) 85, Glucose 95, Calcium 9.1, Total Bilirubin 0.6, AST 27, ALT 30, Alkaline Phosphatase 79, Troponin I < 0.01, Total Protein 6.4, Albumin 4.0, Globulin 2.4, Albumin/Globulin Ratio 1.7, HCV Ab ELIZABETH w/Rflx PCR Qn Negative, HIV Ag/Ab Combo Qual Negative I & O for Last 24 hours: Intake & Output 05/08/24 05/09/24 05/10/24 05/11/24 23:59 23:59 23:59 23:59 Weight 88.451 kg Constitutional Constitutional: no acute distress *Routine HEENT Exam Head: Present normocephalic Eye: Present EOMI and PERRL ENT: Present mucous membranes moist *Routine Neck Exam Neck: Present supple; Absent lymphadenopathy *Routine Respiratory Exam Respiratory: Present CTA bilaterally; Absent rhonchi, wheezes or crackles *Routine Cardiovascular Exam Cardiovascular: Present RRR *Routine Abdominal Exam Abdominal: Present soft and normoactive bowel sounds; Absent tenderness *Routine Rectal Exam Rectal:: deferred *Routine Genitalia Exam Genitalia:: deferred *Routine Extremities Exam Extremities: Absent cyanosis, clubbing or edema Comments: Right shoulder tender to palpation, well-healed scars from recent surgery *Routine Skin Exam Skin: Present warm; Absent rash *Routine Neurological Exam Neurological: Present alert, oriented X3 and moving all extremities; Absent altered mental status Assessment and Plan *Assessment and plan (1) Multiple pulmonary emboli: Status: Acute Category: Medical Code(s): I26.99 - Other pulmonary embolism without acute cor pulmonale (2) Multiple pulmonary nodules: Status: Acute Category: Medical Code(s): R91.8 - Other nonspecific abnormal finding of lung field (3) Anxiety: Status: Acute Category: Medical Code(s): F41.9 - Anxiety disorder, unspecified Plan Patient presented with chest pain and dyspnea with exertion. Found to have PEs on chest CT. Given severity and extent of PEs, discussed case with ER physician, request admission for anticoagulation and pulmonology evaluation along with further workup including echo. I agreed to admit for further treatment. Stable on room air at this time. Will monitor overnight on telemetry. High risk for decompensation. Pulmonology consulted to evaluate patient in the morning. Problems addressed as follows: Chest pain Pulmonary emboli Pulmonary nodules - Per my review of CTA, patient has contrast flow deficiency and left upper lobe. Also noted to have clot in multiple lobes on the right side. Appears to have solid 2 cm nodule right lung base per my measurement. Do not appreciate any spiculation. -Kidney function and electrolytes all normal with potassium 4.3, kidney function with BUN 16, creatinine 1.1. Repeat CBC, CMP, magnesium ordered for the morning. -White count 4.7, hemoglobin 14.8. Platelets 209. -Given report of pain and swelling in right arm after his surgery 8 weeks ago, will obtain right upper extremity ultrasound/Doppler -Echo ordered for the morning to evaluate for right heart strain -Continue Lovenox 1 mg/kg every 12 hours. -Pulmonology consulted to assist with management and follow-up plan for evaluation of minimally PEs but also pulmonary nodules. Depression/anxiety: Continue Lexapro 10 mg daily Full code Therapeutic Lovenox Regular diet
--- NOTE | 2024-05-11 15:08 | PC.NURSE ---
CALLED REPORT TO NEO OLIVIA IN [facility]
--- NOTE | 2024-05-11 15:34 | PC.NURSE ---
ROUNDED ON THE PT. THE PT VOICES THAT HE DOES NOT NEED ANYTHING AT THIS TIME. CALL LIGHT IS WITHIN REACH OF THE PT. IS PRESENT AT THE BEDSIDE.
[2024-05-11] MEDS: HYDROCODONE/APAP 5/325 MG TABLET 1 TAB PO ×2 (17:17→23:57)
--- NOTE | 2024-05-11 17:30 | PC.NURSE ---
1745 troponin sent to lab
[2024-05-11 18:09] LABS: Troponin I < 0.01 ng/ml (0.00-0.034)
[2024-05-11] MEDS: PANTOPRAZOLE 40MG TABLET 40 MG PO (20:23)
--- NOTE | 2024-05-11 23:00 | PC.NURSE ---
Verified with MD to give both 90 mg Lovenox injections scheduled for 2 am.
[2024-05-12] VITALS (9 sets, daily range): BP systolic 109–120; BP diastolic 75–84; PULSE 51–70; RESP 16–22; TEMP 36.3–36.7; O2SAT 91–97; BMI 26.5
[2024-05-12] MEDS: LORazepam 1MG TABLET 1 MG PO (00:02)
[2024-05-12] MEDS: ENOXAPARIN 100MG/ML SYRINGE 90 MG SUBCUT ×2 (03:00→03:01)
[2024-05-12 05:38] LABS: Basophils % 0.6 % (0.1-2.0); Eosinophils # 0.3 K/mm3 (0.0-0.4); Eosinophils % 4.6 % (0.1-12.0); Hematocrit 41.4 % (42.0-52.0); Hemoglobin 13.8 g/dL (14.1-18.0); Lymphocytes % 45.5 % (10-50); Mean Corpuscular HGB Conc 33.3 g/dL (31.8-35.4); Mean Corpuscular Hemoglobin 28.7 pg (27.0-31.2); Mean Corpuscular Volume 86.1 fl (80-94); Mean Platelet Volume 9.6 fl (7.4-10.4); Monocytes # 0.6 K/mm3 (0.1-1.0); Monocytes % 8.6 % (1.7-9.3); Neutrophils # 2.6 K/mm3 (1.8-7.8); Neutrophils % 40.4 % (37.0-80.0); Platelet Count 196 K/mm3 (142-424); Red Blood Count 4.81 M/mm3 (4.60-6.20); Red Cell Distribution Width 12.1 % (11.5-17.5); White Blood Count 6.5 K/mm3 (4.8-10.8)
[2024-05-12 05:43] LABS: Chloride 106 mmol/L (98-107)
[2024-05-12 05:44] LABS: Albumin Level 3.7 g/dl (3.5-5.0); Potassium 4.5 mmoL/L (3.5-5.1); Sodium 138 mmol/L (136-145)
[2024-05-12 05:47] LABS: Alanine Aminotransferase 30 U/L (12-78); Albumin/Globulin Ratio 1.5 (1.1-1.8); Alkaline Phosphatase 74 U/L (38-126); Anion Gap 11.5 mEq/L (5-15); Aspartate Amino Transferase 27 U/L (17-59); Bilirubin,Total 0.5 mg/dl (0.2-1.3); Blood Urea Nitrogen 19 mg/dl (9-20); Calcium 8.9 mg/dl (8.4-10.2); Carbon Dioxide 25 mmol/L (22.0-30.0); Creatinine Clearance Estimated 107 mL/min (50-200); Estimated Glomerular Filt Rate 78 ml/min (>60); GFR (African American) 95 ML/MIN (>60); Globulin 2.4 g/dL (1.3-3.2); Glucose 94 mg/dl (74-100); Total Protein,Serum 6.1 g/dl (6.3-8.2)
--- NOTE | 2024-05-12 06:00 | CA_ITS ---
FINAL REPORT TECHNIQUE: Graded compression, spectral analysis and ultrasound images of the venous system of the right upper extremity were obtained. CLINICAL HISTORY: PE's currently. Had right rotator cuff surgery 8 weeks ago, pain in right arm when vitals checked, edema RUE. COMPARISON: none FINDINGS: There is complete thrombosis with lack of flow within a portion of the brachial vein. Some parts of the brachial vein are patent. The remainder of the right upper extremity venous system are normal, fully compressible and demonstrate no evidence of thrombosis. IMPRESSION: DVT limited to the brachial vein of the right upper extremity. Reviewed, Interpreted and Dictated by George Schultz MD Transcribed by Colette Whitlock Authenticated and [facility]
--- NOTE | 2024-05-12 06:00 | CA_ITS ---
APPROVED REPORT EXAM: Comprehensive 2D, Doppler, and color-flow Echocardiogram [id number] Technical Lead: Cheryl Wagner RDCS Ht: 6 ft 0 in Wt: 195lbs BSA: 2.11 BP: 118/75 mmHg Indications: PEs,CP,RT HEART STRAIN M-Mode Dimensions RVDd 2.01 cm (0.9-2.6) LA Diam 2.82 cm (1.9-4.0) LVDd 5.36 cm (3.5-5.7) LVDs 4.22 cm (3.5-5.7) IVSd 0.57 cm (0.6-1.1) PWd 0.76 cm (0.6-1.1) EF (Teich) 42.80% FS 21.30% EDV (Teich) 138.90 mL TAPSE 1.82 (<1.7) ESV (Teich) 79.50 mL LV Diastology E Decel Time 210 (160-240 msec) E/A Ratio 1.7 Mitral Valve MV E Max Lobo. 48.0 (40-130 cm/s) MV A Velocity 28.0 (40-130 cm/s) E/A Ratio 1.70 MV PHT 62.0 ms Left Ventricle The left ventricle is normal size. The left ventricular systolic function is low-normal. There is increased LV wall thickness. There is normal LV segmental wall motion. The left ventricular diastolic function is normal. LVEF is 50%. Right Ventricle The right ventricle is normal size. The right ventricular systolic function is normal. Atria The left atrium is mildly dilated. The right atrium is mildly dilated. There is no Doppler evidence of interatrial shunt. Aortic Valve Aortic valve is mildly thickened. There is no aortic valvular stenosis. Trace aortic regurgitation. Mitral Valve The mitral valve is normal in structure. No evidence of mitral valve stenosis. Trace mitral regurgitation. Tricuspid Valve Tricuspid valve is grossly normal in structure and function. Trace tricuspid regurgitation. There is insufficient TR jet to estimate RVSP. Pulmonic Valve The pulmonary valve is normal in structure. Trace pulmonic regurgitation. The aortic root is Great Vessels Mildly dilated, measuring 4.6 cm in diameter. The ascending aorta is not well-visualized. IVC is normal in size and collapses >50% with inspiration. Pericardium There is no pericardial effusion. Other Information Study Quality: Fair Conclusion Low normal LV systolic function. Normal RV size and function. Mild biatrial dilation. No significant valvular stenosis or regurgitation. Mildly dilated aortic root, measuring 4.6 cm in diameter. In the setting of dilated aortic root, correlation with new or recent CTA chest is suggested. Electronically signed by : Keisha Garza MD 05/12/2024 10:41:34
--- NOTE | 2024-05-12 09:11 | P.DS_ITS ---
General Admission date:: 05/11/24 Discharge date: 05/12/24 HPI HPI HPI: Mr. Olivas is a 53-year-old male with history of right shoulder surgery 8 weeks ago due to rotator cuff tear. Otherwise healthy and only on Lexapro for depression/anxiety. He presented to the ER due to complaint of left upper chest pain and some shortness of breath. States the pain woke him this morning at about 2 AM. Has had pleurisy in the past and said it felt similar. Denies nausea, vomiting, abdominal pain. No diaphoresis, referred pain. Worse with twisting and bending. Not necessarily worse with exertion. Does have increased dyspnea with exertion. Workup in the ER with labs and imaging, patient has multiple PEs on CTA. Initial troponin negative. No signs of right heart strain on EKG. Patient initiated on Lovenox and medicine was consulted for admission and further management. On arrival to the floor, patient admitted to ICU due to risk for decompensation. Comfortable in bed on room air. Heart rate in the 50s. Family at bedside. Hospital Course Hospital Course Hospital Course: Patient presented with chest pain and dyspnea with exertion. Found to have PEs on chest CT. Given severity and extent of PEs, discussed case with ER physician, request admission for anticoagulation and pulmonology evaluation along with further workup including echo. I agreed to admit for further treatment. Stable on room air at this time. Monitored overnight. Had no further decompensation or change in vitals. Remained stable on room air. Pulmonology evaluated in the morning. Ultrasound obtained showing right upper extremity DVT in brachial artery. Switch to oral anticoagulation. Stable discharge home with close monitoring as an outpatient. Problems addressed as follows: Chest pain Pulmonary emboli Right brachial vein DVT Pulmonary nodules - Per my review of CTA, patient has contrast flow deficiency and left upper lobe. Also noted to have clot in multiple lobes on the right side. Appears to have solid 2 cm nodule right lung base per my measurement. Do not appreciate any spiculation. Patient was initiated on Lovenox. Ultrasound obtained showing right brachial vein DVT. Likely source of his PEs. Of note had right shoulder surgery entheses rotator cuff repair) 8 weeks ago. Hemoglobin remained stable. Kidney function electrolytes normal. Pulmonology was consulted, evaluated patient, recommend follow-up in the clinic as an outpatient. Will transition to [facility] for DVT treatment. Stable to discharge home. -Echo obtained showing no right heart strain. Has low normal LV function with EF 50%. Mildly dilated aortic root at 4.6 cm. No valvular stenosis. Consider evaluation by cardiology as an outpatient. Depression/anxiety: Continue Lexapro 10 mg daily Exam Data for Last 24 hours Vital signs and Labs for Last 24 Hours: Temp Pulse Resp BP Pulse Ox O2 Del Method 97.4 F L 52 L 16 109/80 L 96 Room Air 05/12/24 08:00 05/12/24 08:00 05/12/24 08:00 05/12/24 08:00 05/12/24 08:00 05/12/24 08:00 Laboratory Results - last 24 hr 05/11/24 12:06: WBC 4.7 L, RBC 5.14, Hgb 14.8, Hct 44.8, MCV 87.2, MCH 28.8, MCHC 33.0, RDW 12.2, Plt Count 209, MPV 9.5, Neut % (Auto) 59.4, Lymph % (Auto) 27.7, Cross % (Auto) 8.0, Eos % (Auto) 4.3, Baso % (Auto) 0.4, Neut # (Auto) 2.8, Lymph # (Auto) 1.3, Cross # (Auto) 0.4, Eos # (Auto) 0.2, Baso # (Auto) 0.0, D- Dimer 1.77 H, Sodium 141, Potassium 4.3, Chloride 102, Carbon Dioxide 28, Anion Gap 15.3 H, BUN 16, Creatinine 1.10, Estimated Creat Clear 97, Estimated GFR 70, Est GFR ( Amer) 85, Glucose 95, Calcium 9.1, Total Bilirubin 0.6, AST 27, ALT 30, Alkaline Phosphatase 79, Troponin I < 0.01, Total Protein 6.4, Albumin 4.0, Globulin 2.4, Albumin/Globulin Ratio 1.7, HCV Ab ELIZABETH w/Rflx PCR Qn Negative, HIV Ag/Ab Combo Qual Negative 05/11/24 17:30: Troponin I < 0.01 05/12/24 05:26: WBC 6.5 D, RBC 4.81, Hgb 13.8 L, Hct 41.4 L, MCV 86.1, MCH 28.7, MCHC 33.3, RDW 12.1, Plt Count 196, MPV 9.6, Neut % (Auto) 40.4, Lymph % (Auto) 45.5, Cross % (Auto) 8.6, Eos % (Auto) 4.6, Baso % (Auto) 0.6, Neut # (Auto) 2.6, Lymph # (Auto) 3.0, Cross # (Auto) 0.6, Eos # (Auto) 0.3, Baso # (Auto) 0.0, Sodium 138, Potassium 4.5, Chloride 106, Carbon Dioxide 25, Anion Gap 11.5, BUN 19, Creatinine 1.00, Estimated Creat Clear 107, Estimated GFR 78, Est GFR ( Amer) 95, Glucose 94, Calcium 8.9, Magnesium 2.0, Total Bilirubin 0.5, AST 27, ALT 30, Alkaline Phosphatase 74, Total Protein 6.1 L, Albumin 3.7, Globulin 2.4, Albumin/Globulin Ratio 1.5 I & O for Last 24 hours: Intake & Output 05/09/24 05/10/24 05/11/24 05/12/24 23:59 23:59 23:59 23:59 Output Total 0 / 0 0 / 0 Balance 0 / 0 0 / 0 Weight 88.451 kg 88.677 kg Constitutional Constitutional: no acute distress, average body habitus and cooperative *Routine HEENT Exam Head: Present normocephalic Eye: Present EOMI and PERRL ENT: Present mucous membranes moist *Routine Neck Exam Neck: Present supple; Absent lymphadenopathy *Routine Respiratory Exam Respiratory: Present CTA bilaterally; Absent rhonchi, wheezes or crackles *Routine Cardiovascular Exam Cardiovascular: Present RRR *Routine Abdominal Exam Abdominal: Present soft and normoactive bowel sounds; Absent tenderness *Routine Rectal Exam Patient deferred: visual exam *Routine Exam Patient deferred: penile exam *Routine Extremities Exam Extremities: Absent cyanosis, clubbing or edema Comments: TTP in right upper extremity *Routine Skin Exam Skin: Present warm; Absent rash *Routine Neurological Exam Neurological: Present alert, oriented X3 and moving all extremities; Absent altered mental status Results Data Completed and Pending Labs on day of discharge: Labs from last 24 hours 05/12/24 05/11/24 05/11/24 05:26 17:30 12:06 WBC 6.5 D 4.7 L RBC 4.81 5.14 Hgb 13.8 L 14.8 Hct 41.4 L 44.8 MCV 86.1 87.2 MCH 28.7 28.8 MCHC 33.3 33.0 RDW 12.1 12.2 Plt Count 196 209 MPV 9.6 9.5 Neut % (Auto) 40.4 59.4 Lymph % (Auto) 45.5 27.7 Cross % (Auto) 8.6 8.0 Eos % (Auto) 4.6 4.3 Baso % (Auto) 0.6 0.4 Neut # (Auto) 2.6 2.8 Lymph # (Auto) 3.0 1.3 Cross # (Auto) 0.6 0.4 Eos # (Auto) 0.3 0.2 Baso # (Auto) 0.0 0.0 D-Dimer 1.77 H Sodium 138 141 Potassium 4.5 4.3 Chloride 106 102 Carbon Dioxide 25 28 Anion Gap 11.5 15.3 H BUN 19 16 Creatinine 1.00 1.10 Estimated Creat Clear 107 97 Estimated GFR 78 70 Est GFR ( Amer) 95 85 Glucose 94 95 Calcium 8.9 9.1 Magnesium 2.0 Total Bilirubin 0.5 0.6 AST 27 27 ALT 30 30 Alkaline Phosphatase 74 79 Troponin I < 0.01 < 0.01 Total Protein 6.1 L 6.4 Albumin 3.7 4.0 Globulin 2.4 2.4 Albumin/Globulin Ratio 1.5 1.7 HCV Ab ELIZABETH w/Rflx PCR Qn Negative HIV Ag/Ab Combo Qual Negative DS: Diagnosis Discharge Diagnosis (1) Multiple pulmonary emboli: Status: Acute Code(s): I26.99 - Other pulmonary embolism without acute cor pulmonale (2) Multiple pulmonary nodules: Status: Acute Code(s): R91.8 - Other nonspecific abnormal finding of lung field (3) Anxiety: Status: Acute Code(s): F41.9 - Anxiety disorder, unspecified (4) Deep vein thrombosis of brachial vein of right upper extremity: Status: Acute Code(s): I82.621 - Acute embolism and thrombosis of deep veins of right upper extremity Meds Home Medications and Allergies Home Medications ?Medication ?Instructions ?Recorded ?Confirmed ?Type escitalopram oxalate 20 mg tablet 10 mg PO DAILY 05/11/24 05/12/24 History apixaban 5 mg (74 tabs) tablets in 5 mg PO BID #74 tabs 05/12/24 Rx a dose pack (Eliquis DVT-PE Treat 30D Start) hydrocodone 5 mg-acetaminophen 325 1 tab PO Q6HP PRN severe pain 05/12/24 Rx mg tablet (scale score 7-10) 3 days #11 tabs New Prescriptions to Start Prescriptions: apixaban [Eliquis DVT-PE Treat 30D Start] Lane Sotelo hydrocodone-acetaminophen [facility] [place] Allergies Allergy/AdvReac Type Severity Reaction Status Date / Time No Known Allergies Allergy Verified 10/17/23 09:45 Discharge Plan Disposition Patient Disposition: Home, Self-Care Condition: Fair Follow up Plan Follow up with: Sisi Catherine [Referring] - 05/20/24 7:40 am Farhan Khan PA [Physician Sales Effectiveness Manager] - 06/09/24 1:00 pm Evon Minor MD [Physician] - 05/27/24 1:00 pm Prescriptions/Medication Reconciliation: New hydrocodone-acetaminophen 5-325 mg Tablet 1 tab PO Q6HP PRN (Reason: severe pain (scale score 7-10)) 3 Days Qty: 11 0RF Eliquis DVT-PE Treat 30D Start 5 mg (74 tabs) tablets,dose pack 5 mg PO BID Qty: 74 0RF Rx Instructions: Tablets twice daily for 7 days followed by 1 tablet twice daily thereafter Continued escitalopram oxalate 20 mg tablet 10 mg PO DAILY Patient Comments: TAKE 1 TABLET BY MOUTH ONCE DAILY . APPOINTMENT REQUIRED FOR FUTURE REFILLS Discontinued oxycodone 5 mg tablet 5 mg PO Q4HP PRN (Reason: Pain) Problem Reconciliation Problems Reviewed?: Yes Patient Discharge Instructions ACTIVITY: Continue current activity DIET: continue same diet Patient Instructions: DI for Deep Vein Thrombosis, DI for Pulmonary Embolism Print Language: [place]ralt[place] Providers Primary Care Provider: Provider,Referral Admit Provider: Lane Sotelo Attending Provider: Lane Sotelo
--- NOTE | 2024-05-12 09:44 | EXP.PULM.CON ---
History of Present Illness History of present illness: Mr. Olivas is a 53-year-old male status post right rotator cuff tear surgery 8 weeks ago scented to the ER complaining of respiratory distress and chest pain found to be having pulmonary embolism on the CT scan and pulmonary was called for further evaluation and management. [facility] Disclaimer: The information contained in this section may have been updated after the patient was seen, as this information can be updated by other users. Medical History (Updated 05/12/24 @ 10:59 by Evon Minor MD) Nodule of right lung Nodule of left lung Deep vein thrombosis (DVT) of brachial vein Bilateral pulmonary embolism Allergic rhinitis Acute viral syndrome Encounter for laboratory testing for COVID-19 virus Surgical History No significant past surgical history Family History Other No significant family history Social History Smoking Status: Never smoker alcohol intake: never substance use type: denies use current occupational status: other Travel in the last 8 weeks: None household members: family housing: house Review of Systems Constitutional Constitutional: Denies anorexia, Denies body ache(s) and Denies fatigue Eyes Eyes: Denies eye discharge, Denies dry eyes, Denies irritation and Denies itchy eyes ENT Ears, Nose, Mouth, and Throat: Denies epistaxis, Denies facial pain, Denies lip swelling and Denies throat swelling *Cardiovascular Cardiovascular: Reports dyspnea and Reports dyspnea on exertion *Respiratory Respiratory: Denies change in phlegm color, Reports chest congestion, Denies cough, Reports dyspnea, Reports dyspnea on exertion, Denies excessive phlegm production, Denies hemoptysis, Denies pain on inspiration, Denies pain with cough and Reports wheezing *Gastrointestinal Gastrointestinal: Denies abdominal pain, Denies belching and Denies cramping *Musculoskeletal Musculoskeletal: Denies back pain, Reports limited range of motion and Denies myalgias Psychiatric Psychiatric: Denies homicidal ideation and Denies suicidal ideation Endocrine Endocrine: Denies fatigue and Denies heat intolerance Hematologic/Lymphatic Hematologic/Lymphatic: Denies easy bleeding and Denies lymphadenopathy Allergic/Immunologic Allergic/Immunologic: Denies itchy eyes, Denies lip swelling, Denies throat swelling and Reports wheezing Pulmonology Exam Inpatient Vital signs and Labs for Last 24 Hours: Temp Pulse Resp BP Pulse Ox O2 Del Method 97.4 F L 52 L 16 109/80 L 96 Room Air 05/12/24 08:00 05/12/24 08:00 05/12/24 08:00 05/12/24 08:00 05/12/24 08:00 05/12/24 09:00 Laboratory Results - last 24 hr 05/11/24 12:06: WBC 4.7 L, RBC 5.14, Hgb 14.8, Hct 44.8, MCV 87.2, MCH 28.8, MCHC 33.0, RDW 12.2, Plt Count 209, MPV 9.5, Neut % (Auto) 59.4, Lymph % (Auto) 27.7, Foster % (Auto) 8.0, Eos % (Auto) 4.3, Baso % (Auto) 0.4, Neut # (Auto) 2.8, Lymph # (Auto) 1.3, Foster # (Auto) 0.4, Eos # (Auto) 0.2, Baso # (Auto) 0.0, D-Dimer 1.77 H, Sodium 141, Potassium 4.3, Chloride 102, Carbon Dioxide 28, Anion Gap 15.3 H, BUN 16, Creatinine 1.10, Estimated Creat Clear 97, Estimated GFR 70, Est GFR ( Amer) 85, Glucose 95, Calcium 9.1, Total Bilirubin 0.6, AST 27, ALT 30, Alkaline Phosphatase 79, Troponin I < 0.01, Total Protein 6.4, Albumin 4.0, Globulin 2.4, Albumin/Globulin Ratio 1.7, HCV Ab ELIZABETH w/Rflx PCR Qn Negative, HIV Ag/Ab Combo Qual Negative 05/11/24 17:30: Troponin I < 0.01 05/12/24 05:26: WBC 6.5 D, RBC 4.81, Hgb 13.8 L, Hct 41.4 L, MCV 86.1, MCH 28.7, MCHC 33.3, RDW 12.1, Plt Count 196, MPV 9.6, Neut % (Auto) 40.4, Lymph % (Auto) 45.5, Foster % (Auto) 8.6, Eos % (Auto) 4.6, Baso % (Auto) 0.6, Neut # (Auto) 2.6, Lymph # (Auto) 3.0, Foster # (Auto) 0.6, Eos # (Auto) 0.3, Baso # (Auto) 0.0, Sodium 138, Potassium 4.5, Chloride 106, Carbon Dioxide 25, Anion Gap 11.5, BUN 19, Creatinine 1.00, Estimated Creat Clear 107, Estimated GFR 78, Est GFR ( Amer) 95, Glucose 94, Calcium 8.9, Magnesium 2.0, Total Bilirubin 0.5, AST 27, ALT 30, Alkaline Phosphatase 74, Total Protein 6.1 L, Albumin 3.7, Globulin 2.4, Albumin/Globulin Ratio 1.5 I & O for Labs for Last 24 Hours: Intake & Output 05/09/24 05/10/24 05/11/24 05/12/24 23:59 23:59 23:59 23:59 Output Total 0 / 0 0 / 0 Balance 0 / 0 0 / 0 Weight 195 lb 195 lb 8 oz Constitutional: Present mild distress Head: Present normocephalic and atraumatic ENT: Present normal exam, normal oropharynx and mucous membranes moist Neck: Present normal inspection and full ROM Respiratory: Present able to speak in complete sentences and symmetric chest movement; Absent respiratory distress, rhonchi, stridor, wheezes, crackles or diminished air movement Cardiac: Present S1/S2, Tachycardia and radial pulses present GI: Present soft and distention; Absent tenderness or guarding Skin: Present intact; Absent cyanosis or jaundice Neuro: Present alert, awake and oriented x 3 Extremities: Present normal inspection; Absent clubbing or cyanosis Psychiatric: Present normal affect and cooperative Meds Home Medications and Allergies Home Medications ?Medication ?Instructions ?Recorded ?Confirmed ?Type escitalopram oxalate 20 mg tablet 10 mg PO DAILY 05/11/24 05/12/24 History apixaban 5 mg (74 tabs) tablets in 5 mg PO BID #74 tabs 05/12/24 Rx a dose pack (Eliquis DVT-PE Treat Start) hydrocodone 5 mg-acetaminophen 325 1 tab PO Q6HP PRN severe pain 05/12/24 Rx mg tablet (scale score 7-10) 3 days #11 tabs New Prescriptions to Start Prescriptions: hydrocodone-acetaminophen [facility] apixaban [Eliquis DVT-PE Treat Start] [facility] Allergies Allergy/AdvReac Type Severity Reaction Status Date / Time No Known Allergies Allergy Verified 10/17/23 09:45 Results Laboratory Findings 05/12/24 05:26 05/12/24 05:26 PT/INR, D-dimer D-Dimer 1.77 ug/mL (0.0-0.5) H 05/11/24 12:06 Abnormal lab findings: Abnormal Labs 05/11/24 05/12/24 12:06 05:26 WBC 4.7 L Hgb 13.8 L Hct 41.4 L D-Dimer 1.77 H Anion Gap 15.3 H Total Protein 6.1 L Assessment and Plan *Assessment and plan (1) Bilateral pulmonary embolism: Status: Acute Category: Medical Code(s): I26.99 - Other pulmonary embolism without acute cor pulmonale (2) Deep vein thrombosis (DVT) of brachial vein: Status: Acute Qualifiers: Chronicity: acute Laterality: right Qualified Code(s): I82.621 - Acute embolism and thrombosis of deep veins of right upper extremity Category: Medical Code(s): I82.629 - Acute embolism and thrombosis of deep veins of unspecified upper extremity (3) Nodule of left lung: Status: Acute Category: Medical Code(s): R91.1 - Solitary pulmonary nodule (4) Nodule of right lung: Status: Acute Category: Medical Code(s): R91.1 - Solitary pulmonary nodule Plan Mr. Olivas is a 53-year-old male status post right rotator cuff tear surgery 8 weeks ago scented to the ER complaining of respiratory distress and chest pain found to be having pulmonary embolism on the CT scan and pulmonary was called for further evaluation and management. CT a upon admission bilateral extensive but lower lobe predominant segmental and subsegmental pulmonary embolism. No dense consolidative/airspace changes noted. Right lower lobe 17 mm pleural-based nodule and 8 mm left lower lobe pleural-based nodule. Troponin levels within normal limits. No evidence of RV strain on CT imaging. Right brachial vein thrombosis noted. Plan: Oral anticoagulation for 3 to 6 months for provoked PE status post shoulder surgery and immobilization. Plan to discharge home on [facility] # For the concerning right lower lobe pleural-based nodule will follow as an outpatient basis and will consider 3-month follow-up CT chest without contrast. Never smoker. Denies any personal history or family history of lung cancers.
[2024-05-12] MEDS: APIXABAN 5MG TABLET 10 MG PO (10:47)
--- NOTE | 2024-05-13 10:11 | SW/DCPLANNER ---
Spoke with patient on the phone. Patient stated that he is aware of his upcoming appointments. Patient stated that he was able to sampler pickup his new medicine from clinic pharmacy on the day of his discharge. Patient stated that he has no concerns or questions at this time. Yue Brizuela
== END 2024-05-12 11:29 | disposition home or self-care (01) ==
LOC: ER 14:41 → ICU 14:54
PROVIDERS: Admitting Provider Internal Medicine Adolescent Medicine; Emergency Provider Emergency Medicine; Visit Provider Internal Medicine Adolescent Medicine
DX: I26.94 Multiple subsegmental thrombotic pulmonary emboli without acute cor pulmonale (principal); F32.A Depression, unspecified; I82.621 Acute embolism and thrombosis of deep veins of right upper extremity; F41.9 Anxiety disorder, unspecified; R91.1 Solitary pulmonary nodule; Z79.899 Other long term (current) drug therapy
CPT/HCPCS: 71046; 71275; 80053; 83735; 84484; 85025; 85378; 86803; 87389; 93005; 93306; 93971; 99285; G0378; J1650; J1885; Q9967

== ENCOUNTER 2024-05-29 08:00 | Outpatient (RCR) | payer OTHER, BC, SELFPAY | END 2024-05-29 23:59 | disposition home or self-care (01) | LOC: OT 08:00 | PROVIDERS: Visit Provider Physician Assistant | DX: Z98.890 Other specified postprocedural states (principal) | CPT/HCPCS: 97010; 97014; 97110; 97140; 97168; G0283 ==

== ENCOUNTER 2024-06-27 09:00 | Outpatient (RCR) | payer OTHER, BC, SELFPAY | END 2024-06-30 23:59 | disposition home or self-care (01) | LOC: OT 09:00 | PROVIDERS: Visit Provider Physician Assistant | DX: Z98.890 Other specified postprocedural states (principal); M75.101 Unspecified rotator cuff tear or rupture of right shoulder, not specified as traumatic | CPT/HCPCS: 97014; 97110; 97140; 97168; 97530; G0283 ==

== ENCOUNTER 2024-07-21 08:00 | Outpatient (RCR) | payer OTHER, BC, SELFPAY | END 2024-07-21 23:59 | disposition home or self-care (01) | LOC: OT 08:00 | PROVIDERS: Visit Provider Physician Assistant | DX: Z98.890 Other specified postprocedural states (principal) | CPT/HCPCS: 97014; 97110; 97140; G0283 ==

== ENCOUNTER 2024-08-11 11:02 | Outpatient (CLI) | payer OTHER, SELFPAY ==
--- NOTE | 2024-08-11 11:00 | CT_ITS ---
FINAL REPORT TECHNIQUE: Axial images were obtained through the chest without contrast. Sagittal and coronal reconstructions were performed and evaluated. This study was performed with techniques to keep radiation doses as low as reasonably achievable (ALARA). Individualized dose reduction techniques using automated exposure control or adjustment of mA and/or kV according to the patient's size were employed. CLINICAL HISTORY: nodule f/u COMPARISON: CTA of the chest 05/11/2024 FINDINGS: CT CHEST: No mediastinal mass or adenopathy is noted. The heart size is normal. There is no pericardial or pleural effusion. Limited images of the upper abdomen are unremarkable. There is a mild pleural-based parenchymal density in the right lung base, which has markedly decreased in size since the prior CT of 05/11/2024, likely a resolving inflammatory change. No new infiltrates or nodules are identified. IMPRESSION: Marked decrease in size of the right base pleural and parenchymal opacity noted on the prior CT, likely resolving inflammatory process. No new infiltrates or nodules are identified. Reviewed, Interpreted and Dictated by Roge Knight MD Transcribed by Shirin Gomes Authenticated and [facility]
--- OUTSIDE RECORDS SUMMARY | 2024-08-11 11:05 | XMS_ITS | Data Portability ---
Author Organization [place] - [facility] & TERENCE Kraus ADMIN Address [address] [place] [id number] Care Team Providers Care Clinical Research Spec Name Role Phone MIRYAM HAGEN Primary Care Provider JEAN TARANGO Hematology/Oncology JOHN LEON Take Away Worker GABE MONTOYA Medication Technician Assessment No assessment recorded. 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 Procedures None recorded. Surgeries None recorded. Imaging None recorded. Medication Orders None recorded. Patient TargetsNo targets recorded. Patient InstructionsNo instructions recorded. Reason for Referral None Reported. Results Created Date Observation Date Name Description Value Unit Range Abnormal Flag Note LastModifiedBy Organization Detail LastModifiedTime 05/28/1905/30/2024 PROTE IN S-FUN CTION AL(AC TIVIT Y) protein S, functional 117 % 63-140 Prote in S activ ity may be false ly incre ased (mask ing an abnor mal, low resul t) in patie nts recei ving direc t Xa inhib itor (e.g. , rivar oxaba n, apixa ban, edoxa ban) or a direc t throm bin inhib itor (e.g. , dabig atran ) antic oagul ant treat ment due to assay inter feren ce by these drugs . [facility]fo [facility] at: [facility] [place] [facility] [address] [id number] Lab Direc tor: Jalyn alas MD, Phone : [phone] Not Available [facility] ([facility]) [address] [facility], [place], [address], 05/30/2024 06:11:05 05/28/19 25 05/30/2024 PROTE IN C FUNTI ONAL protein C functional 113 % 73-180 Perfo rmed at: [facility] [place] [address] [place] [address] Lab Direc tor: Jalyn alas MD, Phone : [phone] Not Available [facility] ([facility]) [address] [facility], [place], [address], 05/30/2024 06:11:06 05/28/19 25 05/30/2024 ANTIT HROMB IN 3 ACTIV ITY antithrombin activity 118 % 75-135 Direc t Xa inhib itor antic oagul ants such as rivar oxaba n, apixa ban and edoxa ban will lead to spuri ously eleva mary antit hromb in activ ity level s possi trenton maski ng a defic iency . Not Available [facility] ([facility]) [address] [facility], [place], [address], 05/30/2024 06:11:07 05/28/19 25 05/30/2024 ANTIT HROMB IN 3 ACTIV ITY antithrobmin antigen 73 % 72-124 Perfo rmed at: [facility] [place] [address] , [place] [address] Lab Direc tor: Jalyn alas MD, Phone : [phone] Not Available [facility] ([facility]) [address] [facility], [place], [address], 05/30/2024 06:11:07 05/28/19 25 05/30/2024 FACTO R II, DNA PEACE SIS factor II, DNA analysis Commen t Resul t: c.*97 G>A - Not Detec mary . This resul t is not assoc iated with an incre ased risk for nish ous throm boemb olism . See Addit ional Clini ann Infor matio n and Comme nts. . Addit ional Clini ann Infor matio n: Venou s throm boemb olism is a multi facto rial disea se influ ence d by ascencion ic, envir onmen moe, and circu mstan tial risk facto rs. The c.*97 G>A varia nt in the F2 gene is a ascencion ic risk facto r for venou s throm boemb olism . Heter ozygo us zach ers have a 2- to 4-fol d i ncrea sed risk for venou s throm boemb olism . Homoz ygote s for the c.*97 G> A varia nt are rare. The annua l risk of VTE in homoz ygote s has been rep orted to be 1.1%/ year. Indiv idual s who carry both a c.*97 G>A varia nt in the F2 gene and a c.160 1G>A (p. Arg53 4Gln) varia nt in the F5 gen e (comm only refer red to as Facto r V Leide n) have an appro ximat holger 20- fold incre ased risk for venou s throm boemb olism . Risks are li gaston to be even highe r in more compl ex genot ype combi natio ns invol vi ng the F2 c.*97 G>A varia nt and Facto r V Leide n (PMID : [id number]). Ad ditio nal risk facto rs inclu de but are not limit ed to: defic iency of p rotei n C, prote in S, or antit hromb in III, age, male sex, perso nal or f amily histo ry of deep vein throm boemb olism , smoki ng, surge ry, prol onged immob iliza tion, malig nant neopl asm, tamox ifen treat ment, ral oxife ne treat ment, oral contr acept pierre use, hormo ne repla cemen t thera py, and pregn jhonny. Manag ement of throm botic risk and throm botic even ts shoul d follo w estab lishe d guide lines and fit the clini ann circu msta nce. This resul t canno t predi ct the occur rence or recur rence of a thro mboti c event . . Comme nts: Ascencion ic couns kajal is recom adebayo d to discu ss the poten tial c linic al impli catio ns of posit pierre resul ts, as well as recom menda tions for testi ng famil y membe rs. [facility]ion ic Coord inato rs are avail [facility] ders to discu ss resul ts at [phone] ([phone] ). . Test Detai ls: Varia nt peace zed: c.*97 G>A, previ ously refer red to as G2021 0 A . Metho ds/Li mitat ions: DNA peace sis of the F2 gene (NM_0 02215 .5) was perfo rmed by P CR ampli ficat ion follo wed by restr ictio n enzym e peace sis. The d iagno stic sensi tivit y is >99%. Resul ts must be combi dino with clini ann infor matio n for the most accur ate inter preta tion. Molec ular- based testi ng is highl y accur ate, but as in any labor atory test, d iagno stic error s may occur . False posit pierre or false negat pierre resul ts m ay occur for reaso ns that inclu de ascencion ic varia nts, blood trans fusio n s, bone marro w trans plant ation , somat ic or tissu e-spe cific mosai cism , misla beled sampl es, or alex eous repre senta tion of famil y relat ionsh ips. . This test was devel oped and its perfo rmanc e sherie cteri stics deter mined by [facility]. It has not been clear ed or appro conchita by the Food and Drug Admin istra tion. . Refer ences : Bharathi Solorio, Dee WHEAT, Jaspreet Morgan, Neal BERNABE, Afshin in JH; [facility] Pro fessi onal Pract ice and Guide lines Commi ttee. Adden dum: Jamilah glynn e of Medic al [facility] conse nsus state ment on facto r V Leide n muta tion testi ng. [facility]. 2020Jun 04. doi: 10.10 38/s4 1436- 021-0 110 8-x. PMID: 78987 767. . Pratima elias JL. Proth rombi n Throm bophi heidi. 2005Oct 24 Updat ed 2020May 06 . In: Adonay MP, Johnny milton HH, Joe RA, et al., domenicito rs. GeneR gregw s(R) Inter net . [place] ([place]): Unive rsity of [place]; 1992- 2020. Avail able from: https ://jp w.ncb i.nlm .nih. gov/b ooks/ NBK11 48/ . Pankaj Solorio, Dee WHEAT, Isaac X, Thai B, Spect or EB, Mallory P, Rich ards CS; [facility] Labor atory Quali ty Assur ance Commi ttee. Venou s throm brneda mboli sm labor atory testi ng (fact or V Leide n and facto r II c.*97 G>A), 2018 updat e: a techn ical stand adrian of the Jamilah Lopez ge of Medic al [facility] and [facility] ([facility] ). [facility]. 2017;2 0(12) :148 9-149 8. doi: 10.10 38/s4 1436- 018-0 322-z . Epub 2017Jan 04. PMID: 79110 698. Not Available [facility] ([facility]) [address], [place], [address], 05/30/2024 19:10:58 05/28/19 25 05/30/2024 FACTO R II, DNA PEACE SIS reviewed by: Anjelica olivares Techn ical [place] perfo rmed at [facility] Nuno holley [place] perfo rmed by: . Labor atory Corpo ratio n of Ameri ca Holdi ngs Handy casillas, Ph.D. , [facility] Direc tor, Molec ular [facility] [address] [place] [address] Perfo rmed at: [facility] [address] [facility] , [place] [address] Lab Direc tor: Edgar Mccartney [facility] , Phone : [phone] Not Available [facility] ([facility]) [address] , [place], [address], 05/30/2024 19:10:58 05/28/19 25 06/02/2024 FACTO R V MERRICK N MUTAT ION factor V leiden ANJELICA olivares: c.160 1G>A (p.Ar g534G ln) - Not Detec mary . This resul t is not assoc iated with an incre ased risk for nish ous throm boemb olism . See Addit ional Clini ann Infor matio n and Keon nts. . Addit ional Clini ann Infor matio n: Venou s throm boemb olism is a multi facto rial disea se influ enced by ascencion ic, envir onmen moe, and circu mstan tial risk facto rs. The c.160 1G>A (p. Arg53 4Gln) varia nt in the F5 gene, commo nly refer red to as Facto r V Leide n, is a ascencion ic risk facto r for venou s throm boemb olism . Heter ozygo us zach ers of this varia nt have a 6- to 8- fold incre ased risk for venou s throm boemb olism . Indiv idual s homoz ygous for this varia nt (ie, with a copy of the varia nt on each chrom osome ) have an appro ximat holger 80-fo ld incre ased risk for venou s throm boemb olism . Indiv idual s who carry both a c.*97 G>A varia nt in the F2 gene and Facto r V Leide n have an appro ximat holger 20-fo ld incre ased risk for venou s throm boemb olism . Risks are likel y to be even highe r in more compl ex genot ype combi natio ns invol ving the F2 c.*97 G>A varia nt and Facto r V Leide n (PMID : [id number]). Addit ional risk facto rs inclu de but are not limit ed to: defic iency of prote in C, prote in S, or antit hromb in III, age, male sex, perso nal or famil y histo ry of deep vein throm boemb olism , smoki ng, surge ry, prolo nged immob iliza tion, malig nant neopl asm, tamox ifen treat ment, ralox ifene treat ment, oral contr acept pierre use, hormo ne repla cemen t thera py, and pregn jhonny. Manag ement of throm botic risk and throm botic event s shoul d follo w estab lishe d guide lines and fit the clini ann circu mstan ce. This resul t canno t predi ct the occur rence or recur rence of a throm botic event . . Comme nt: Ascencion ic couns kajal is recom adebayo d to discu ss the poten tial clini ann impli catio ns of posit pierre resul ts, as well as recom menda tions for testi ng famil y membe rs. . Ascencion ic Coord inato rs are avail able for healt h care provi ders to discu ss resul ts at [phone] ([phone] ). . Test Detai ls: Varia nt Peace zed: c.160 1G>A (p. Arg53 4Gln) , refer red to as Facto r V Leide n . Metho ds/Li mitat ions: DNA peace sis of the F5 gene (NM_0 [id number] .5) was perfo rmed by PCR ampli ficat ion follo wed by restr ictio n enzym e peace sis. The diagn ostic sensi tivit y is >99%. Resul ts must be combi dino with clini ann infor matio n for the most accur ate inter preta tion. Molec ular- based testi ng is highl y accur ate, but as in any labor atory test, diagn ostic error s may occur . False posit pierre or false negat pierre resul ts may occur for reaso ns that inclu de ascencion ic varia nts, blood trans fusio ns, bone marro w trans plant ation , somat ic or tissu e-spe cific mosai cism, misla beled sampl es, or alex eous repre senta tion of famil y relat ionsh ips. . This test was devel oped and its perfo rmanc e sherie cteri stics deter mined by [facility]. It has not been clear ed or appro conchita by the Food and Drug Admin istra tion. . Refer ences : Bharathi Solorio, Dee WHEAT, Jaspreet Morgan, Neal BERNABE, Afshin in ; [facility] Profe ssion al Pract ice and Guide lines Commi ttee. Adden dum: Jamilah castaneda Colle ge of Medic al [facility] conse nsus state ment on facto r V Leide n mutat ion testi ng. [facility]. 2020Jun 04. doi: 10.10 38/s4 1436- 021-0 1108- x. PMID: 03865 767. . Pratima GREGORIO. Facto r V Leide n Throm bophi heidi. 1998August 13 (Upda mary 2017Apr 05). In: Adonay TAYLOR, Johnny milton HH, Joe RA, et al., dawson rs. Nel solorio(R) (Inte rnet) . [place] ([place]): Unive [facility] [place]; 1992- 2020. Avail able from: https ://jp danielson.ncb i.nlm .nih. gov/b miahoks/ NBK13 68/ . Dee Goldberg, Isaac X, Thai B, Spect or EB, Mallory P, Malina rds CS; [facility] Labor atory Quali ty Assur ance Commi ttee. Venou s throm boemb olism labor atory testi ng (fact or V Leide n and facto r II c.*97 G>A), 2018 updat e: a techn ical stand adrian of the Ameri can Colle ge of Medic al [facility] and [facility] ([facility] ). [facility]. 2018 Mar;2 0(12) :1489 -1498 . doi: 10.10 38/s4 1436- 018-0 322-z . Epub 2017Jan 04. PMID: 12638 698. Not Available [facility] ([facility]) [address] , [place], [address], 06/02/2024 15:11:18 05/28/19 25 06/02/2024 FACTO R V LEIDE N MUTAT ION reviewed by: ANJELICA Olivares Techn ical [place] perfo rmed at [facility] Profe bobon al [place] perfo rmed by: . Labor atory Corpo ratio n of Ameri ca Holdi ngs Judy tomas, Ph.D. , [facility] Direc tor, Molec ular [facility] [address] [facility] [address] Perfo rmed at: - [facility] [address] [facility] , [place] [address] Lab Direc tor: Edgar Mccartney [facility] , Phone : [phone] Not Available [facility] ([facility]) [address] , [place], [address], 06/02/2024 15:11:18 Result Notes None recorded. Procedures Surgical History Date Name Laterality Status Provider Name and Address Organization Details Recorded Time 05/28/19 25 Venipuncture completed Meredith PRATT [facility] 05/28/2024 10:29:00 complete repair of rotator cuff completed Meredith PRATT [facility] 05/28/2024 10:27:18 septodermoplasty completed Meredith BOYD - [facility] & [place] 05/28/2024 10:27:36 cardiac catheterization completed Meredith BOYD - TERENCE [facility] & [place] 05/28/2024 10:28:06 removal of silastic tubes from ear completed Meredith BOYD - LPNT [facility] & [place] 05/28/2024 10:28:14 colonoscopy completed Meredith BOYD TERENCE [facility] & [place] 05/28/2024 10:28:32 Imaging Results None recorded. Procedure Notes None recorded. Medical Equipment None Reported. Allergies No known drug allergies Medications Name Sig Start Date Stop Date Status Note LastModified by Organization Details LastModified Time Miralax 17 gram oral powder packet Take 5 packets 3 times a day by oral route. 05/28 completed Not Available Not Available Not Available cyclobenzap rine 10 mg tablet TAKE 1 TABLET BY MOUTH THREE TIMES DAILY FOR 5 DAYS 05/28 completed Not Available Not Available Not Available azithromyci n 250 mg tablet 05/28 completed Not Available Not Available Not Available hydrocodone 5 mg-acetamin ophen 325 mg tablet TAKE ONE TABLET BY MOUTH EVERY 6 HOURS NEEDED FOR SEVERE pain (pain scale score 7-10) MAY CAUSE DROWSINES S 05/28 completed Not Available Not Available Not Available prednisone 20 mg tablet TAKE 2 TABLETS BY MOUTH ONCE DAILY FOR 5 DAYS 05/28 completed Not Available Not Available Not Available tramadol 50 mg tablet active Not Available Not Available No t Available meloxicam 7.5 mg tablet TAKE 1 TABLET BY MOUTH ONCE DAILY 05/28 completed Not Available Not Available Not Available methylpredn isolone 4 mg tablets in a dose pack TAKE BY MOUTH DIRECTED ON INSIDE OF PACKAGE 05/28 completed Not Available Not Available Not Available amoxicillin 875 mg-potassiu m clavulanate 125 mg tablet TAKE 1 TABLET BY MOUTH EVERY 12 HOURS FOR 10 DAYS 05/28 completed Not Available Not Available Not Available oxycodone 5 mg tablet active Not Available Not Available No t Available escitalopra m 20 mg tablet TAKE 1 TABLET BY MOUTH ONCE DAILY . APPOINTME NT REQUIRED FOR FUTURE REFILLS active Not Available Not Available No t Available Mucus Relief ER 600 mg tablet, extended release 05/28 completed Not Available Not Available Not Available Eliqubob DVT-PE Treatment 30-Day Starter 5 mg (74 tablets) in dose pack TAKE ACCORDING TO PACKAGE INSTRUCTI ONS active Not Available Not Available No t Available Vitals Date Recorded Body height Body mass index (BMI) Body weight Body temperature Oxygen saturation Oxygen saturation in Arterial blood by Pulse oximetry Heart rate Systolic blood pressure Diastolic blood pressure Provider Name and Address Organization Details Last Updated DateTime 180.34 cm 27.2 kg/m2 24065.5 1 g 97.8 [degF] 98 % 98 % 75 /min 117 mm[Hg] 74 mm[Hg] Meredith Gorge [facility] & [place] 10:25:03 Social History Question Answer Notes LastModified by Cream Style ion Details LastModified Time Tobacco Smoking Status Never Smoker Meredith Gorge [facility] & [place] 05/28/2024 10:26:50 What Is Your Level Of Caffeine Consumption? Moderate Information not available 05/28/2024 What Was The Date Of Your Most Recent Tobacco Screening? 05/28/2024 [email or web address] Information not available 05/28/2024 Has Tobacco Cessation Counseling Been Provided? No [email or web address] Information not available 05/28/2024 Sex: Unknown Functional Status Question Answer Note LastModified by Organizat ion Details LastModified Time Do you use any illicit or recreational drugs? No Information not available 05/28/2024 Do you or have you ever used any other forms of tobacco or nicotine? Yes [email or web address] Information not available 05/28/2024 What is your level of alcohol consumption? None [email or web address] Information not available 05/28/2024 Do you or have you ever used smokeless tobacco? Current snuff user only sometime s- fishin/h untin Information not available 05/28/2024 Do you or have you ever used e-cigarettes or vape? Current user of electronic cigarettes [email or web address] Information not available 05/28/2024 Mental Status None recorded. Family History Relationship Description Onset Age of this Age Resolved Age Notes LastModified by Organization Details LastModified Time Father Malignant tumor of colon Not available 05/28 10:25:29 Father Malignant neoplasm of skin [email or web address] Not available 05/28 10:25:37 Father Myocardial infarction [email or web address] Not available 05/04 10:26:04 Medical History No medical history recorded. Past Encounters Encounter ID Performer Location Encounter Start Date Encounter Closed Date Diagnosis/Indication Diagnosis SNOMED-CT Code Diagnosis ICD10 Code Diagnosis Note [id number] Jean Tarango MD [facility] Oncology and Hematolog y [address] [place] [address] 05/28/2024 09:52:31 05/28/2024 10:47:00 Deep venous thrombosis [id number] I82.409 Patient with recent history of of DVT and pulmonary embolism in May 2024. Patient recently hospitaliz ed following pain in his right arm and shoulder. Patient recovering from right shoulder surgery and developed DVT the right brachial vein. Patient had following pulmonary embolism. Patient initially started on Lovenox therapy. Ultrasound demonstrat ing right brachial vein DVT. Patient had rotator cuff repair in March 2024. Patient recently started on Eliquis and starter pack dosing.No family history of DVT. No family history of lupus or rheumatoid arthritis. No history of autoimmune disease.La bs on May 11, 2024 with white blood cell count 4.7. Red blood cell count 5.14. Hemoglobin 14.8. Hematocrit 44.8. MCV 87.2. D-dimer elevated at 1.77. GFR greater than 60. Patient presents for evaluation on May 28, 2024. Discussed with patient likely provoked DVT following orthopedic procedure. Discussed hypercoagu lable testing. Would plan to continue with anticoagul ation for at least 3 months with repeat ultrasound as well as CT of the chest. Patient has repeat CT scan of the chest in July [address] [facility] in [facility]. Will follow-up repeat ultrasound around that time as well. Pulmonary embolism [id number] I26.99 Patient with recent history of of DVT and pulmonary embolism in May 2024. Patient recently hospitaliz ed following pain in his right arm and shoulder. Patient recovering from right shoulder surgery and developed DVT the right brachial vein. Patient had following pulmonary embolism. Patient initially started on Lovenox therapy. Ultrasound demonstrat ing right brachial vein DVT. Patient had rotator cuff repair in March 2024. Patient recently started on Eliquis and starter pack dosing. Labs on May 11, 2024 with white blood cell count 4.7. Red blood cell count 5.14. Hemoglobin 14.8. Hematocrit 44.8. MCV 87.2. D-dimer elevated at 1.77. GFR greater than 60. Patient presents for evaluation on May 28, 2024. Discussed with patient likely provoked DVT following orthopedic procedure. Discussed hypercoagu lable testing. Would plan to continue with anticoagul ation for at least 3 months with repeat ultrasound as well as CT of the chest. Patient has repeat CT scan of the chest in July 2024 at [facility]. Will follow-up repeat ultrasound around that time as well. Health Concerns Section Related Observation LastModified by Organization Detai ls LastModified Time None Recorded Concern Status LastModified by Organization Details LastModified Time None Recorded Advance Directives Directive None Recorded Payers Insurance Date Sequence Insurance Name Policy Number Policy Smith Covered Member ID Smith Member ID Guarantor Name 05/29/2024 2 [place] [id number] A Ru Olivas [id number] Ru Olivas 05/30/2024 [facility] Ru Olivas [id number] Ru Olivas Notes Date Note Type Note Provider Name and Address Organization Details Recorded Time 05/28/2024 text/html 53 yo M presents for evaluation of pulmonary embolism. Patient recently seen by primary care provider on May 20, 2024. Patient with recent history of of DVT and pulmonary embolism in May 2024. Patient recently hospitalized following pain in his right arm and shoulder. Patient recovering from right shoulder surgery and developed DVT the right brachial vein. Patient had following pulmonary embolism. Patient initially started on Lovenox therapy. Ultrasound demonstrating right brachial vein DVT. Patient had rotator cuff repair in March 2024. Patient recently started on Eliquis and starter pack dosing. Labs on May 11, 2024 with white blood cell count 4.7. Red blood cell count 5.14. Hemoglobin 14.8. Hematocrit 44.8. MCV 87.2. D-dimer elevated at 1.77. GFR greater than 60. Patient presents for evaluation on May 28, 2024. Discussed with patient likely provoked DVT following orthopedic procedure. Discussed hypercoagulable testing. Would plan to continue with anticoagulation for at least 3 months with repeat ultrasound as well as CT of the chest. Patient has repeat CT scan of the chest in July 2024 at [facility]. Will follow-up repeat ultrasound around that time as well. Jean Tarango MD [address], [place], [address], [place] - [facility] - [place] & [place] 05/28/2024 12:05:20
== END 2024-08-11 23:59 | disposition home or self-care (01) ==
LOC: RAD 11:03
PROVIDERS: PCP Internal Medicine Pulmonary Disease; Visit Provider Internal Medicine Pulmonary Disease
DX: R91.8 Other nonspecific abnormal finding of lung field (principal)
CPT/HCPCS: 71250

== ENCOUNTER 2024-08-28 10:00 | Outpatient (RCR) | payer OTHER, BC, SELFPAY | END 2024-08-28 23:59 | disposition home or self-care (01) | LOC: OT 10:00 | PROVIDERS: Visit Provider Orthopaedic Surgery | DX: M75.120 Complete rotator cuff tear or rupture of unspecified shoulder, not specified as traumatic (principal) | CPT/HCPCS: 97014; 97110; 97140; 97168; 97530; G0283 ==

== ENCOUNTER 2024-10-06 15:20 | Outpatient (CLI) | payer OTHER, BC, SELFPAY ==
--- OUTSIDE RECORDS SUMMARY | 2024-10-06 15:23 | XMS_ITS | Data Portability ---
Author Organization [place] - [facility] & [facility] ADMIN Address [address] [place] [id number] Care Team Providers Care Toe Puller Name Role Phone MIRYAM HAGEN Primary Care Provider JEAN TARANGO Hematology/Oncology JOHN LEON Public Relations Account Executive GABE MONTOYA Flume Maker Assessment No assessment recorded. Plan of Treatment Reminders Order Date Submit Date Provider Last Modified By Organization Details Last Modified Time Details Appointments None recorded. Lab factor V mutation, blood or tissue 2024 025 MEG Not available 5 15:11:19 prothrombin (factor II) [id number] mutation, blood 2024 025 [email or web address] 6 Not available 5 08:43:57 protein C activity, plasma 2024 025 [email or web address] 6 Not available 5 08:43:57 protein S activity, plasma 2024 025 [email or web address] 6 Not available 5 08:43:57 antithrombi n activity, plasma 2024 025 MEG Not available 5 06:11:07 Referral None recorded. Procedures None recorded. Surgeries None recorded. Imaging None recorded. Medication Orders None recorded. Patient TargetsNo targets recorded. Patient InstructionsNo instructions recorded. Reason for Referral None Reported. Results Created Date Observation Date Name Description Value Unit Range Abnormal Flag Note LastModifiedBy Organization Detail LastModifiedTime 05/28/19 25 05/30/2024 PROTE IN S-FUN CTION AL(AC TIVIT Y) [...] these drugs . Perfo rmed at: - [facility] [place] [address] [id number] 3[address] Lab Direc tor: Jalyn alas MD, Phone : [phone] Not Available [facility] ([facility]) [address] [place], [address], 05/30/2024 06:11:05 05/28/19 25 05/30/2024 PROTE IN C FUNTI ONAL protein C functional 113 % 73-180 [facility] [place] [address] [place] [address] Lab Direc tor: Jalyn alas MD, Phone : [phone] Not Available [facility] ([facility]) [address] [place], [address], 05/30/2024 06:11:06 05/28/19 25 05/30/2024 ANTIT HROMB IN 3 ACTIV ITY antithrombin activity 118 % 75-135 Direc t Xa inhib itor antic oagul ants such as rivar oxaba n, apixa ban and edoxa ban will lead to spuri ously eleva mary antit hromb in activ ity level s possi trenton maski ng a defic iency . Not Available [facility] ([facility]) [address] [place], [address], 05/30/2024 06:11:07 05/28/19 25 05/30/2024 ANTIT HROMB IN 3 ACTIV ITY antithrobmin antigen 73 % 72-124 Perfo rmed at: [facility] - [facility] [place] [address] , [place] [address] Lab Direc tor: Jalyn alas MD, Phone : [phone] Not Available [facility] ([facility]) [address], [place], [address], 05/30/2024 06:11:07 05/28/19 25 05/30/2024 FACTO R [...] Facto r V Leide n (PMID : [id number] [id number]). Ad ditio nal risk facto rs [...] ders to discu ss resul ts at [phone]- GENE (1875 ). . Test Detai ls: Varia nt peace zed: c.*97 G>A, previ ously refer red to as G2021 0 A . Metho ds/Li mitat ions: DNA peace sis of the F2 gene (NM_0 01078 .5) was perfo rmed by P CR [...] e sherie cteri stics deter mined by [facility]. It has not been clear ed or appro ocnchita by the Food and Drug Admin istra tion. . Refer ences : Bharathi Solorio, Dee WHEAT, Jaspreet Morgan, Neal BERNABE, Afshin in JH; [facility] Pro fessi onal Pract ice and Guide lines Commi ttee. Adden dum: Jamilah glynn e of Medic al [facility] conse nsus state ment on facto r V Leide n muta tion testi ng. [facility]. 2020Jun 04. doi: 10.10 38/s4 1436- 021-0 110 8-x. PMID: 77874 767. . Pratima elias JL. Proth rombi n Throm bophi heidi. 2005Oct 24 Updat ed 2020May 06 . In: Adonay MP, Johnny milton HH, Joe RA, et al., domenicito rs. GeneR eview s(R) Inter net . Robles masterson ([place]): Unive rsity of [place]; 1992- 2020. Avail able from: https ://jp w.cob i.nlm .nih. gov/b ooks/ NBK11 48/ . Pankaj Solorio, Dee WHEAT, Isaac X, Thai B, Spect or EB, Mallory P, Rich ards CS; ACMG Labor atory Quali ty Assur ance Commi ttee. Venou s throm brenda mboli sm labor atory testi ng (fact or V Leide n and facto r II c.*97 G>A), 2018 updat e: a techn ical stand adrian of the Jamilah Lopez ge of Medic al [facility] and Genom ics ([facility] ). [facility]. 2017;2 0(12) :148 9-149 8. doi: 10.10 38/s4 1436- 018-0 322-z . Epub 2017Jan 04. PMID: 71743 698. Not Available [facility] ([facility]) [address], [place], [address], 05/30/2024 19:10:58 05/28/19 25 05/30/2024 FACTO R II, DNA PEACE SIS reviewed by: Anjelica olivares Techn ical [place] n[place] perfo rmed at [facility] [place] Nuno razo al [place] n[place] perfo rmed by: . Labor atory Corpo ratio n of Ameri ca Holdi ngs Handy casillas, Ph.D. , [facility] Direc tor, Molec ular [facility] [address] [place] [address] Perfo rmed at: [facility] - [facility] [place] [address] [facility] , [place] [address] Lab Dire tor: Edgar Mccartney [facility] , Phone : [phone] Not Available [facility] ([facility]) [address] [facility], [place], [address], 05/30/2024 19:10:58 05/28/19 25 06/02/2024 FACTO R V LEIKIRK N MUTAT ION factor V leiden COMMGENEVA Lopez t: c.160 1G>A (p.Ar g534G ln) - Not [...] Facto r V Leide n (PMID : [id number] 767). Addit ional risk facto rs inclu [...] ders to discu ss resul ts at 5-739 -343- GENE (7354 ). . Test Detai ls: Varia nt Peace zed: c.160 1G>A (p. Arg53 4Gln) , refer red to as Facto r V Leide n . Metho ds/Li mitat ions: DNA peace sis of the F5 gene (NM_0 08487 .5) was perfo rmed by PCR ampli [...] e sherie cteri stics deter mined by [facility]. It has not been clear ed or appro conchita by the Food and Drug Admin istra tion. . Refer ences : Bharathi Solorio, Dee WHEAT, Jaspreet Morgan, Neal BERNABE, Afshin in ; [facility] Profe ssion al Pract ice and Guide lines Commi ttee. Adden dum: Jamilah tripathi of Medic al [facility] conse nsus state ment on facto r V Leide n mutat ion testi ng. [facility]. 2020Jun 04. doi: 10.10 38/s4 1436- 021-0 1108- x. PMID: 82852 767. . Pratima GREGORIO. Facto r V Leide n Throm bophi heidi. 1998August 13 (Upda mary 2017Apr 05). In: Adonay TAYLOR, Johnny milton HH, Joe RA, et al., dawson rs. GeneR lala solorio(R) (Inte rnet) . Robles masterson (LATISHA): Unive rsity of [place]; 1992- 2020. Avail able from: https ://jp danielson.ncb i.nlm .nih. gov/b ooks/ NBK13 68/ . Pankaj Solorio, Dee WHEAT, Isaac John, Thai B, Spect or EB, Fangretta P, Malina rds CS; [facility] Labor atory Quali ty Assur ance Commi ttee. Venou s throm boemb olism labor atory testi ng (fact or V Leide n and facto r II c.*97 G>A), 2018 updat e: a techn ical stand adrian of the Jamilah can Colle ge of Medic al [facility] and Gen[facility] ([facility] ). [facility]. 2018 Mar;2 012) :1489 -1498 . doi: 10.10 38/s4 1436- 018-0 322-z . Epub 2017Jan 04. PMID: 29677 698. Not Available [facility] ([facility]) [address], [place], [address], 06/02/2024 15:11:18 05/28/19 25 06/02/2024 FACTO R V LEIDE N MUTAT ION reviewed by: ANJELICA Olivares Techn ical [place] n[place] perfo rmed at [facility] [place] Profe danni al [place] n[place] perfo rmed by: . Labor atory Corpo ratio n of Ameri ca Holdi ngs Judy tomas, Ph.D. , [facility] Direc tor, Molec ular [facility] [address] [facility] [address] Perfo rmed at: [facility] - [facility] [place] [address] [facility] , [place] [address] Lab Direc tor: Edgar Mccartney [facility] , Phone : [phone] Not Available [facility] ([facility]) [address], [place], [address], 06/02/2024 15:11:18 08/27/19 25 08/11/2024 CT, chest , w/o contr ast No observ ation record ed. [email or web address] (Med Record) [address], [place], [address], 09/01/2024 15:33:09 08/27/19 25 08/11/2024 CT, chest , w/o contr ast No observ ation record ed. [email or web address] Not Available 08/26 14:56:07 Result Notes None recorded. Procedures Surgical History Date Name Laterality Status Provider Name and Address Organization Details Recorded Time 05/28/19 25 [facility] [place] 05/28/2024 10:29:00 complete repair of rotator cuff completed [facility] Gorge DEB [facility] & [place] 05/28/2024 10:27:[address] [facility] [place] 05/28/2024 10:27:36 cardiac catheterization completed [facility] & [place] 05/28/2024 10:28:06 removal of silastic tubes from ear completed [facility] & [place] 05/28/2024 10:28:14 colonoscopy completed [facility] & [place] 05/28/2024 10:28:32 Imaging Results None recorded. Procedure [...] completed Not Available Not Available Not Available amitriptyli ne 10 mg tablet TAKE 1 TABLET BY MOUTH AT NIGHT NEEDED FOR SLEEP CAN TAKE 1-2 AT BEDTIME NEEDED FOR SLEEP active Not Available Not Available No t Available methylpredn isolone 4 mg tablets in [...] TAKE 1 TABLET BY MOUTH ONCE DAILY active Not Available Not Available No t Available bupropion HCl XL 150 mg 24 hr tablet, extended release TAKE 1 TABLET BY MOUTH IN THE MORNING DO NOT CRUSH, SPLIT OR CHEW active Not Available Not Available No t Available Mucus Relief ER 600 mg tablet, extended release 05/28 completed Not Available Not Available Not Available Eliquis 5 mg tablet TAKE ONE TABLET BY MOUTH TWICE DAILY active Not Available Not Available No t Available Eliquis DVT-PE Treatment 30-Day Starter 5 mg (74 tablets) in dose pack TAKE ACCORDING TO PACKAGE INSTRUCTI ONS active Not Available Not Available No t Available Vitals Date Recorded Body height Body mass index (BMI) Body weight Body temperature Oxygen saturation Oxygen saturation in Arterial blood by Pulse oximetry Heart rate Systolic And Diastolic Provider Name and Address Organization Details Last Updated DateTime 180.34 cm 27.2 kg/m2 46802.5 1 g 97.8 [degF] 98 % 98 % 75 /min 117/74 mm[Hg] Meredith BOYD TERENCE [facility] & [place] 10:25:03 Social History Question Answer Notes LastModified by Organizat ion Details LastModified Time Tobacco Smoking Status Never Smoker Meredith Pennington [facility], [facility] & [place] 05/28/2024 10:26:50 What Is Your Level Of Caffeine Consumption? Moderate [email or web address] Information not available 05/28/2024 What Was The Date Of Your Most Recent Tobacco Screening? 05/28/2024 [email or web address] Information not available 05/28/2024 Has Tobacco Cessation Counseling Been Provided? No Information not available 05/28/2024 Sex: Unknown Functional Status Question Answer Note LastModified by Organizat ion Details LastModified Time Do you use any illicit or recreational drugs? No [email or web address] Information not available 05/28/2024 Do you or have you ever used any other forms of tobacco or nicotine? Yes [email or web address] Information not available 05/28/2024 What is your level of alcohol consumption? None [email or web address] Information not available 05/28/2024 Do you or have you ever used smokeless tobacco? Current snuff user only sometime s- fishin/h untin [email or web address] Information not available 05/28/2024 Do you or have you ever used e-cigarettes or vape? Current user of electronic cigarettes [email or web address] Information not available 05/28/2024 Mental Status None recorded. Family History Relationship Description Onset Age of this Age Resolved Age Notes LastModified by Organization Details LastModified Time Father Malignant tumor of colon [email or web address] Not available 05/28 10:25:29 Father Malignant neoplasm of skin [email or web address] Not available 05/28 10:25:37 Father Myocardial infarction [email or web address] Not available 05/04 10:26:04 Medical History No medical history recorded. Past Encounters Encounter ID Performer Location Encounter Start Date Encounter Closed Date Diagnosis/Indication Diagnosis SNOMED-CT Code Diagnosis ICD10 Code Diagnosis Note [id number] Jean Tarango MD [facility] Oncology and Hematolog y [address] [facility] [address] [place] [address] 05/28/2024 09:52:31 05/28/2024 10:47:00 Deep venous thrombosis 692662696 I82.409 Patient with recent history of of [...] of the chest in July 2024 at [facility]. Will follow-up repeat ultrasound around that time as well. Pulmonary embolism 42011 003 I26.99 Patient with recent history of [...] of the chest in July 2024 at [facility]. Will follow-up repeat ultrasound around that time as well. Health Concerns Section Related Observation LastModified by Organization Detai ls LastModified Time None Recorded Concern Status LastModified by Organization Details LastModified Time None Recorded Advance Directives Directive None Recorded Payers Insurance Date Sequence Insurance Name Policy Number Policy Smith Covered Member ID Smith Member ID Guarantor Name 08/24/2024 2 [place] [id number] Ru Olivas [id number] Ru Olivas 05/30/2024 M[facility] Ru Olivas [id number] Ru Olivas Notes Date Note Type Note [...] of the chest in July 2024 at [facility]. Will follow-up repeat ultrasound around that time as well. Jean Tarango MD [address], [place], [address], [place] - [facility] - [place] & [place] 05/28/2024 12:05:20
--- OUTSIDE RECORDS SUMMARY | 2024-10-06 15:23 | XMS_ITS | Encounter Summary ---
Author Organization Healthcare Address [address] [place] [address] Care Team Providers Care Derrick Worker Well Service Name Role Phone Florin Sisi My HANDELY Primary Care Provider [phone] Encounter Details Date Type Department Care Team (Late st Contact Info) Description 08/18/2024 Orders Only [facility] [address] [place] [address] Jessica Isaac Generalized anxiety disorder Social History Tobacco Use Types Packs/Day Years Used Date Smoking Tobacco: Never Passive Smoke Exposure: Never Smokeless Tobacco: Never Alcohol Use Standard Drinks/Week Comments Never 0 (1 standard drink = 0.6 oz pur e alcohol) Humiliation, Afraid, Rape, and Kick questionnair e Answer Date Recorded Within the last year, have y ou been afraid of your partner or ex-partner? No 05/20/2024 Within the last year, have y ou been humiliated or emotionally abused in other ways by your partner or ex-partner? No Within the last year, have y ou been kicked, hit, slapped, or otherwise physically hurt by your partner or ex-partner? No 05/20/2024 Within the last year, have y ou been raped or forced to have any kind of sexual activity by your partner or ex-partner? No 05/20/2024 PHQ-2 Answer Date Recorded Patient Health Questionnaire-2 Score 0 05/20/2024 Hunger Vital Sign Answer Date Recorded Within the past 12 months, y ou worried that your food would run out before you got the money to buy more. Never true 05/20/19 25 Within the past 12 months, t he food you bought just didn't last and you didn't have money to get more. Never true 05/20/2024 PRAPARE - Transportation Answer Date Re corded In the past 12 months, has l ack of transportation kept you from medical appointments or from getting medications? No 05/03 In the past 12 months, has l ack of transportation kept you from meetings, work, or from getting things needed for daily living? No 05/20/2024 Housing Stability Vital Sign Answer Rayray e Recorded In the last 12 months, was t here a time when you were not able to pay the mortgage or rent on time? No 06/15/2023 [address] Lived in the Last Year Not on f ile 06/15/2023 In the last 12 months, was t here a time when you did not have a steady place to sleep or slept in a skilled nursing (including now)? No 06/15/2023 PHQ-9 Answer Date Recorded Patient Health Questionnaire-9 Score 0 05/20/2024 Housing Stability Vital Sign Answer Rayray e Recorded In the last 12 months, was t here a time when you were not able to pay the mortgage or rent on time? No 05/20/2024 In the past 12 months, how m any times have you moved where you were living? 1 05/20/2024 At any time in the past 12 m [facility], were you homeless or living in a skilled nursing (including now)? No 05/20/2024 Utilities Answer Date Recorded In the past 12 months has th e [employer], gas, oil, or water company threatened to shut off services in your home? No 05/20/2024 PHQ-2A Answer Date Recorded Patient Health Questionnaire-2 Score 0 11/09/2022 Sex and Gender Information Value Date Recorded Sex Assigned at Not on file Legal Sex Male 8:12 PM EDT Gender Identity Not on file Sexual Orientation Not on file documented as of this encounter Plan of Treatment Not on file documented as of this encounter Visit Diagnoses Diagnosis Generalized anxiety disorder documented in this encounter Additional Health Concerns Assessment Noted Time PHQ-9 Depression Total Score: 0 05/20/19 25 7:30 AM EST A Body Mass Index follow-up plan has been documented for the patient 06/23/2024 5:46 AM EDT documented as of this encounter Care Teams Derrick Worker Well Service Relationship Specialty Start Date End Date Sisi Catherine APRN [facility] [place] [address] PCP - General 08/13/20 documented as of this encounter
--- OUTSIDE RECORDS SUMMARY | 2024-10-06 15:23 | XMS_ITS | Clinical Summary ---
Author Organization Healthcare Address [address] [place] [address] Care Team Providers Care Box Sealing Machine Catcher Name Role Phone Sisi Catherine APRN Primary Care Provider Allergies No known active allergies Medications apixaban (Eliquis) 5 MG tablet Take 1 tablet (5 mg) by mouth 2 (two) times a day. Dose pack Active buPROPion XL (Wellbutrin XL) 150 MG 24 hr tablet Take 1 tablet (150 mg) by mouth every morning. Do not crush, chew, or split. 30 tablet 1 06/19/2024 Active escitalopram (Lexapro) 20 MG tabletIndication s:Generalized anxiety disorder Take 1 tablet by mouth daily. 90 tablet 08/18/2024 Active Active Problems Problem Noted Date Diagnosed Date Arthralgia of left hand 05/21/2020 Allergic rhinitis 11/04/2019 Seasonal allergies 10/28/2018 Anxiety 06/27/2014 Depression 06/27/2014 Encounters Date Type Department Care Team Description 08/18/2024 Orders Only [facility] [address] [place] [address] Jessica Isaac Generalized anxiety disorder from Last 3 Months Immunizations Immunization Administration Dates Next Due Influenza, Unspecified 12/31/2020 Influenza, seasonal, injectable, preservative fr ee 01/02/2024 Izzy COVID-19 Vaccine (Blue Cap) 18+ 07/08/19 21 Moderna COVID-19 Vaccine (Seamstress Fitter) 12+ years 09/2020 Family History Medical History Relation Name Comments No Known Problems Brother Cardiac disorder Father Other cancer Father No Known Problems Maternal Grandfather No Known Problems Maternal Grandmother COPD Mother No Known Problems Paternal Grandfather No Known Problems Paternal Grandmother No Known Problems Sister Relation Name Status Comments Brother Alive Father Alive Maternal Grandfather Maternal Grandmother Mother Paternal Grandfather Paternal Grandmother Sister Alive Social History Tobacco Use Types Packs/Day Years Used Date Smoking Tobacco: Never Passive Smoke Exposure: Never Smokeless Tobacco: Never Tobacco Cessation:Counseling Given: Yes Alcohol Use Standard Drinks/Week Comments Never 0 [...] place to sleep or slept in a halfway (including now)? No 06/15/2023 PHQ-9 Answer Date [...] any time in the past 12 m [facility], were you homeless or living in a halfway (including now)? No 05/20/2024 Utilities Answer Date Recorded In the past 12 months has th e [employer], gas, oil, or water company threatened to shut off services in your home? No 05/20/2024 PHQ-2A Answer Date Recorded Patient Health Questionnaire-2 Score 0 11/09/2022 Sex and Gender Information Value Date Recorded Sex Assigned at Not on file Legal Sex Male 8:12 PM EDT Gender Identity Not on file Sexual Orientation Not on file Last Filed Vital Signs Vital Sign Reading Time Taken Comments Blood Pressure 114/69 06/19/2024 10:31 AM EDT Pulse 79 06/19/2024 10:31 AM EDT Temperature 36.7 C (98.1 F) 06/19/2024 10:31 AM EDT Respiratory Rate 18 06/19/2024 10:31 AM EDT Oxygen Saturation 96% 06/19/2024 10:31 AM EDT Inhaled Oxygen Concentration - - Weight 88.5 kg (195 lb) 06/19/2024 10:31 AM EDT Pt stated Height 182.9 cm (6') 06/19/2024 10:31 AM EDT Body Mass Index 26.45 06/19/2024 10:31 AM EDT Plan of Treatment Health Maintenance Due Date Last Done Comments [facility]-HIV Screening 1970 [facility]-Hepatitis C Screening 1970 [facility]-Infant/Child/Adol SDOH Screenings 1970 [facility]-DTaP,Tdap,and Td Vaccines (1 - Tdap) 1989 [facility]-Hepatitis B Vaccines (1 of 3 - 19+ 3-dose series) 1989 CT Colonography 06/29/2015 FIT-DNA 06/29/2015 FIT 06/29/2015 FOBT 06/29/2015 Sigmoidoscopy 06/29/2015 [facility]-Pneumococcal Vaccine: 50+ Years (1 of 1 - PCV) 2020 [facility]-Zoster Vaccines (1 of 2) 2020 [id number] Vaccine (3 - season) 2023 03/08/2021, 07/07/2020 [facility]- SDOH Screenings 11/17/2024 [facility]-Adult SDOH Screenings 11/17/2024 05/20/2024 [facility]-Influenza Vaccine (#1) 2024 01/02/2024, [facility]-Depression Screening 05/20/2025 05/20/2024, 05/03 Colonoscopy 12/25/2032 12/25/2022 [facility]-Colorectal Cancer Screening 12/25/2032 [facility]-Obesity Intervention Completed 025, 05/20/2024, 05/02/2024, Additional history exists HPV Vaccines Aged Out No longer eligi ble based on patient's age to complete this topic [facility]-HIB Vaccines Aged Out No longer e ligible based on patient's age to complete this topic [facility]-Hepatitis A Vaccines Aged Out No longer eligible based on patient's age to complete this topic [facility]-IPV Vaccines Aged Out No longer e ligible based on patient's age to complete this topic [facility]-Rotavirus Vaccines Aged Out No lo nger eligible based on patient's age to complete this topic Procedures Procedure Name Priority Date/Time Associated Diagnosis Comments COLONOSCOPY EXTERNAL RESULT 12/25/2022 from Last 3 Months or Most Recently Relevant to Health Maintenance Results * Colonoscopy External Result (12/25/2022) Anatomical Region Laterality Modality Endoscopy Narrative 12/25/2022 Ordered by an unspecified provider. External Provider GI PROCEDURE ORDERABLES Final Result from Last 3 Months or Most Recently Relevant to Health Maintenance Insurance LOIS Care Teams Box Sealing Machine Catcher Relationship Specialty Start Date End Date Sisi Catherine APRN [address] [place] [id number] PCP - General 08/13/20
--- OUTSIDE RECORDS SUMMARY | 2024-10-06 15:23 | XMS_ITS | Clinical Summary ---
Author Organization [facility] Address [address] [place] [address] Phone [email or web address] Care Team Providers Care Hand Dry Cleaner Name Role Phone Unavailable Primary Care Provider Unavailabl e Social History Tobacco Use Types Packs/Day Years Used Date Smoking Tobacco: Never Assessed Intimate Partner Violence Answer Date R ecorded Insults You Not on file 07/14/2020 Threatens You Not on file 07/14/2020 Screams at You Not on file 07/14/2020 Physically Hurt Not on file 07/14/2020 Intimate Partner Violence Score Not on file 07/14/2020 Stress Answer Date Recorded Stress in your Life Not on file 02/04/2024 Dealing with Stress 3 02/04/2024 Sex and Gender Information Value Date Recorded Sex Assigned at Not on file Legal Sex Male 9:30 AM CDT Gender Identity Not on file Sexual Orientation Not on file Last Filed Vital Signs Vital Sign Reading Time Taken Comments Blood Pressure - - Pulse 77 05/30/2021 9:46 AM EST Temperature 36.8 C (98.2 F) 05/30/2021 9:46 AM EST Respiratory Rate - - Oxygen Saturation 98% 05/30/2021 9:46 AM EST Inhaled Oxygen Concentration - - Weight - - Height - - Body Mass Index - - Plan of Treatment Health Maintenance Due Date Last Done Comments Dental Cleaning/Exam 1970 HIV Screening 1970 Hepatitis C Screening 1970 Annual Preventive Exam 1988 Hep B Infection Screening - Triple Screen 1988 Hepatitis B Immunization (1 of 3 - 19+ 3-dose series) 1989 Tetanus Diphtheria and Pertu ssis Immunization (1 - Tdap) 1989 Colorectal Cancer Screening 2000 Zoster Immunization (1 of 2) 2020 Covid-19 Immunization (1 - 2 -25 season) 2023 Influenza Immunization (#1) 2024 HIB Immunization Aged Out No longer e ligible based on patient's age to complete this topic HPV Immunization Aged Out No longer e ligible based on patient's age to complete this topic Hepatitis A Immunization Aged Out No longer eligible based on patient's age to complete this topic Pneumococcal: Ped (0 to 5 Yr s) and At-Risk Member (6 to 64 Yrs) Aged Out No longer e ligible based on patient's age to complete this topic Polio Immunization Aged Out No longer eligible based on patient's age to complete this topic
--- OUTSIDE RECORDS SUMMARY | 2024-10-06 15:23 | XMS_ITS | Encounter Summary ---
Author Organization Healthcare Address [address] [place] [address] Care Team Providers Care Chief Ophthalmic Technician Name Role Phone Miryam Hagen APRN Primary Care Provider Nunu Mead LPN Unavailable Unavailable Joycelyn Handy Unavailable Unavailyvette bailey Encounter Details Date Type Department Care Team (Late st Contact Info) Description 05/05/2024 Outside Procedure External Location [address] [place] [address] Miryam Hagen APRN [address] [place] [address] Social History Tobacco Use Types Packs/Day Years Used Date Smoking Tobacco: Never Passive Smoke Exposure: Never Smokeless Tobacco: Never Humiliation, Afraid, Rape, and Kick questionnair e Answer Date Recorded Within the last year, have y ou been afraid of your partner or ex-partner? No 06/15/2023 Within the last year, have y ou been humiliated or emotionally abused in other ways by your partner or ex-partner? No Within the last year, have y ou been kicked, hit, slapped, or otherwise physically hurt by your partner or ex-partner? No 06/15/2023 Within the last year, have y ou been raped or forced to have any kind of sexual activity by your partner or ex-partner? No 06/15/2023 PHQ-2 Answer Date Recorded Patient Health Questionnaire-2 Score 0 05/02/2024 Hunger Vital Sign Answer Date Recorded Within the past 12 months, y ou worried that your food would run out before you got the money to buy more. Never true 06/15/19 24 Within the past 12 months, t he food you bought just didn't last and you didn't have money to get more. Never true 06/15/2023 PRAPARE - Transportation Answer Date Re corded In the past 12 months, has l ack of transportation kept you from medical appointments or from getting medications? No 05/31 In the past 12 months, has l ack of transportation kept you from meetings, work, or from getting things needed for daily living? No 06/15/2023 Housing Stability Vital Sign Answer Rayray e [...] place to sleep or slept in a fdc (including now)? No 06/15/2023 PHQ-9 Answer Date Recorded Patient Health Questionnaire-9 Score 0 05/02/2024 Utilities Answer Date Recorded In the past 12 months has th e electric, gas, oil, or water company threatened to shut off services in your home? No 06/15/2023 PHQ-2A Answer Date Recorded Patient Health Questionnaire-2 Score 0 11/09/2022 Sex and Gender Information Value Date Recorded Sex Assigned at Not on file Legal Sex Male 8:12 PM EDT Gender Identity Not on file Sexual Orientation Not on file documented as of this encounter Plan of Treatment Not on file documented as of this encounter Procedures Procedure Name Priority Date/Time Associated Diagnosis Comments US ABDOMEN RUQ 05/05/2024 9:09 AM EST documented in this encounter Results * US Abdomen RUQ (05/05/2024 9:09 AM EST) Anatomical Region Laterality Modality Gallbladder Ultrasound 05/05/2024 9:09 AM EST Narrative 05/05/2024 10:19 [place] [address] Name: MILDRED OLIVAS Exam Date: 05/05/2024 : 1970 Age 53 years Gender: M Physician: MIRYAM HAGEN Facility: [facility] Facility HSV: Outpatient Exam: RT UPPER QUADRANT US US ABDOMEN LIMITED 05/05/2024 8:51 AM FRUIT CHECKER CLINICAL INDICATION: Male, 53 years old. RUQ pain Multiple sonographic images of the right upper quadrant supplemented by color Doppler as needed. Liver 15 cm Common bile duct 3 mm Right kidney 9.8 cm * Pancreas obscured secondary to bowel gas. * No hydronephrosis involving the right kidney. * Liver normal in size, no focal abnormality. * No gallstones or bile duct dilatation. * IMPRESSION: * No acute abnormality . Electronically signed by: Seven Clifton MD 05/05/2024 10:15 AM [facility] Dictated By: Seven Clifton Transcribed By: Transcribed On: 05/05/2024 9:51 AM Electronically signed by: Seven Clifton 05/05/2024 Thank you for referring MILDRED OLIVAS to [facility]. Legally authenticated by OBINNA SANABRIA 2024-05-05 09:51:00 Procedure Note Provider, Generic [place] - 05/05/2024 [place] [address] Name: MILDRED OLIVAS Exam Date: 05/05/2024 : 1970 Age 53 years Gender: M Physician: MIRYAM HAGEN Facility: [facility] Facility HSV: Outpatient Exam: RT UPPER QUADRANT US US ABDOMEN LIMITED 05/05/2024 8:51 AM FRUIT CHECKER CLINICAL INDICATION: Male, 53 years old. RUQ pain Multiple sonographic images of the right upper quadrant supplemented bycolor Doppler as needed. Liver 15 cm Common bile duct 3 mm Right kidney 9.8 cm * Pancreas obscured secondary to bowel gas. * No hydronephrosis involving the right kidney. * Liver normal in size, no focal abnormality. * No gallstones or bile duct dilatation. * IMPRESSION: * No acute abnormality . Electronically signed by: Seven Clifton MD 05/05/2024 10:15 AM [facility] Dictated By: Seven Clifton Transcribed By: Transcribed On: 05/05/2024 9:51 AM Electronically signed by: Seven Clifton 05/05/2024 Thank you for referring MILDRED OLIVAS to [facility]. Legally authenticated by OBINNA SANABRIA 2024-05-05 09:51:00 us Miryam Hagen APRN IMG US PROCEDURES Final Res ult documented in this encounter Visit Diagnoses Not on filedocumented in this encounter Additional Health Concerns Assessment Noted Time PHQ-9 Depression Total Score: 0 05/02/19 10:43 AM EST A Body Mass Index follow-up plan has been documented for the patient 05/02/2024 12:02 PM EST documented as of this encounter Care Teams Chief Ophthalmic Technician Relationship Specialty Start Date End Date Miryam Hagen APRN [address] [place] [address] PCP - General 08/13/20 Nunu Mead LPN VALUE-[place] [address] TCM Nurse 05/13/24 06/12/24 Joycelyn Handy Clinical Grapple Skidder Operator 06/19/24 07/28/24 documented as of this encounter
[2024-10-06 16:20] LABS: D-Dimer 0.36 ug/mL (0.0-0.5)
== END 2024-10-06 23:59 | disposition home or self-care (01) ==
LOC: LAB 15:22
PROVIDERS: Visit Provider Internal Medicine Pulmonary Disease
DX: I82.621 Acute embolism and thrombosis of deep veins of right upper extremity (principal); I26.99 Other pulmonary embolism without acute cor pulmonale
CPT/HCPCS: 36415; 85378

== ENCOUNTER 2024-10-13 09:54 | Outpatient (CLI) | payer OTHER, BC, SELFPAY ==
--- OUTSIDE RECORDS SUMMARY | 2024-10-13 10:01 | XMS_ITS | Clinical Summary ---
Author Organization Healthcare Address [address] [place] [address] Care Team Providers Care As400 Consultant Name Role Phone Sisi Catherine APRN Primary [...] Department Care Team Description 08/18/2024 Orders Only [facility] [address] [place] [address] Jessica Isaac Generalized anxiety disorder from Last 3 Months Immunizations Immunization Administration Dates Next Due Influenza, Unspecified 12/31/2020 Influenza, seasonal, injectable, preservative fr ee 01/02/2024 Izzy COVID-19 Vaccine (Blue Cap) 18+ 07/08/19 21 Moderna COVID-19 Vaccine (Health Promotion Coordinator) 12+ years 09/2020 Family History Medical History [...] place to sleep or slept in a correction (including now)? No 06/15/2023 PHQ-9 Answer Date [...] any time in the past 12 m [facility], were you homeless or living in a correction (including now)? No 05/20/2024 Utilities Answer Date Recorded In the past 12 months has th e [employer], gas, oil, or water company threatened to [...] [facility]-HIV Screening 1970 [facility]-Hepatitis C Screening 1970 [facility]-/Child/Adol SDOH Screenings 1970 [facility]-DTaP,Tdap,and Td Vaccines (1 - Tdap) 1989 [facility]-Hepatitis B Vaccines (1 of 3 - 19+ 3-dose series) 1989 CT Colonography 06/29/2015 FIT-DNA 06/29/2015 FIT 06/29/2015 FOBT 06/29/2015 Sigmoidoscopy 06/29/2015 [facility]-Pneumococcal Vaccine: 50+ Years (1 of 1 - PCV) 2020 [facility]-Zoster Vaccines (1 of 2) 2020 XSU-ARNBV-21 Vaccine (3 - season) 2023 03/08/2021, 07/07/2020 [...] to Health Maintenance Insurance LOIS Care Teams As400 Consultant Relationship Specialty Start Date End Date Sisi Catherine APRN [address] [place] [phone] PCP - General 08/13/20
--- OUTSIDE RECORDS SUMMARY | 2024-10-13 10:01 | XMS_ITS | Clinical Summary ---
Author Organization [facility] Address [address] [place] [address] Phone [email or web address] Care Team Providers Care Fan Mail Clerk Name Role Phone Unavailable Primary Care Provider [...]
--- OUTSIDE RECORDS SUMMARY | 2024-10-13 10:01 | XMS_ITS | Encounter Summary ---
Author Organization Healthcare Address [address] [place] [address] Care Team Providers Care Stage Electrician Name Role Phone Miryam Hagen APRN Primary Care Provider Nunu Mead LPN Unavailable Unavailable Joycelyn Handy Unavailable Unavailyvette bailey Encounter Details Date Type Department Care Team (Late st Contact Info) Description 05/05/2024 Outside Procedure External Location [address] [place] [address] Miryam Hagen APRN [address] [place] [address] Social History Tobacco Use Types [...] AM EST Narrative 05/05/2024 10:19 [place] [address] Name: MILDRED OLIVAS Exam Date: 05/05/2024 : 1970 Age 53 years Gender: M Physician: MIRYAM HAGEN Facility: [facility] Facility HSV: Outpatient Exam: RT UPPER QUADRANT US US ABDOMEN LIMITED 05/05/2024 8:51 AM CLEAN OUT DRILLER HELPER CLINICAL INDICATION: Male, 53 years old. RUQ [...] by: Seven Clifton MD 05/05/2024 10:15 AM [facility] Dictated By: Seven Clifton Transcribed By: Transcribed On: 05/05/2024 9:51 AM Electronically signed by: Seven Clifton 05/05/2024 Thank you for referring MILDRED OLIVAS to [facility]. Legally authenticated by OBINNA SANABRIA 2024-05-05 09:51:00 Procedure Note Provider, Generic [place] - 05/05/2024 [place] [address] Name: MILDRED OLIVAS Exam Date: 05/05/2024 : 1970 Age 53 years Gender: M Physician: MIRYAM HAGEN Facility: [facility] Facility HSV: Outpatient Exam: RT UPPER QUADRANT US US ABDOMEN LIMITED 05/05/2024 8:51 AM CLEAN OUT DRILLER HELPER CLINICAL INDICATION: Male, 53 years old. RUQ [...] Thank you [facility]. Legally authenticated by OBINNA SANABRIA [...] documented as of this encounter Care Teams Stage Electrician Relationship Specialty Start Date End Date Miryam Hagen APRN [address] [place] [address] PCP - General 08/13/20 Nunu Mead LPN VALUE-BASED [place] [address] TCM Nurse 05/13/24 06/12/24 Joycelyn Handy Clinical Gas Inspector 06/19/24 07/28/24 documented as of this encounter
--- OUTSIDE RECORDS SUMMARY | 2024-10-13 10:01 | XMS_ITS | Data Portability ---
Author Organization [place] - [facility] & Nayana [facility] ADMIN Address [address] [place] [address] Care Team Providers Care Drone Software Development Engineer Name Role Phone MIRYAM HAGEN Primary Care Provider JEAN TARANGO Hematology/Oncology JOHN LEON Machine Hoop Maker Helper GABE MONTOYA Medical And Scientific Illustrator Assessment No assessment recorded. Plan of Treatment Reminders Order Date Submit Date Provider Last Modified By Organization Details Last Modified Time Details Appointments None recorded. 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, blood 2024 025 [id number] 6 Not [...] rmed at: - [facility] [place] [address] [id number] Lab Direc tor: Jalyn alas MD, Phone : [phone] Not Available [facility] ([facility] [address] [place], [address], 05/30/2024 06:11:05 05/28/19 25 05/30/2024 PROTE IN C FUNTI ONAL protein C functional 113 % 73-180 [facility] [place] [address] [place] [address] Lab Direc tor: Jalyn alas MD, Phone : [phone] Not Available [facility] ([facility] [address] [place], [address], 05/30/2024 06:11:06 05/28/19 25 05/30/2024 ANTIT HROMB IN 3 ACTIV ITY antithrombin activity 118 % 75-135 Direc t Xa inhib itor antic oagul ants such as rivar oxaba n, apixa ban and edoxa ban will lead to spuri ously eleva mary antit hromb in activ ity level s possi trenton maski ng a defic iency . Not Available [facility] ([facility] [address] [place], [address], 05/30/2024 06:11:07 05/28/19 25 05/30/2024 ANTIT HROMB IN 3 ACTIV ITY antithrobmin antigen 73 % 72-124 Perfo rmed at: BN - [facility] [place] [address] , [place] [address] Lab Direc tor: Jalyn alas MD, Phone : [phone] Not Available [facility] ([facility] [address], [place], [address], 05/30/2024 06:11:07 05/28/19 25 05/30/2024 FACTO R [...] Facto r V Leide n (PMID : 65105 767). Ad ditio nal risk facto rs [...] ders to discu ss resul ts at [phone]- GENE (8703 ). . Test Detai ls: Varia nt peace zed: c.*97 G>A, previ ously refer red to as G2021 0 A . Metho ds/Li mitat ions: DNA peace sis of the F2 gene (NM_0 38262 .5) was perfo rmed by P CR [...] Jaspreet Morgan, Neal BERNABE, Afshin in JH; [facility] Pro fessi onal Pract ice and Guide lines Commi ttee. Adden dum: Jamilah glynn e of Medic al [facility] conse nsus state ment on facto r V Leide n muta tion testi ng. [facility]. 2020Jun 04. doi: 10.10 38/s4 1436- 021-0 110 8-x. PMID: 98203 767. . Pratima elias JL. Proth rombi n Throm bophi heidi. 2005Oct 24 Updat ed 2020May 06 . In: Adonay MP, Johnny milton HH, Joe RA, et al., domenicito rs. GeneR eview s(R) Inter net . Robles masterson ([place]): Unive rsity of [place] Gomes; 1992- 2020. Avail able from: https ://jp w.meb i.nlm .nih. gov/b ooks/ NBK11 48/ . [...] Medic al [facility] ([facility] ). [facility]. 2017;2 0(12) :148 9-149 8. doi: 10.10 38/s4 1436- 018-0 322-z . Epub 2017Jan 04. PMID: 45012 698. Not Available [facility] ([facility] [address], [place], [address], 05/30/2024 19:10:58 05/28/19 25 05/30/2024 FACTO R II, DNA PEACE SIS reviewed by: Anjelica olivares Techn ical Rondo nent perfo rmed at [facility]P Nuno razo al Rondo nent perfo rmed by: . Labor atory Corpo ratio n of Ameri ca Holdi ngs Handy casillas, Ph.D. , [facility] Direc tor, Molec ular [facility] [address] [place] [address] Perfo rmed at: TG - [facility] [address] [facility] , [place] [address] Lab Dire tor: Edgar Mccartney [facility] , Phone : [phone] Not Available [facility] [address] [facility], [place], [address], 05/30/2024 19:10:58 05/28/19 25 06/02/2024 FACTO R [...] Facto r V Leide n (PMID : 78808 767). Addit ional risk facto rs inclu [...] ders to discu ss resul ts at [phone]- GENE (3817 ). . Test Detai ls: Varia nt Peace zed: c.160 1G>A (p. Arg53 4Gln) , refer red to as Facto r V Leide n . Metho ds/Li mitat ions: DNA peace sis of the F5 gene (NM_0 15163 .5) was perfo rmed by PCR ampli [...] Jaspreet Morgan, Neal BERNABE, Afshin in ; [facility] Profe ssion al Pract ice and Guide lines Commi ttee. Adden dum: Jamilah tripathi of Medic al [facility] conse nsus state ment on facto r V Leide n mutat ion testi ng. [facility]. 2020Jun 04. doi: 10.10 38/s4 1436- 021-0 1108- x. PMID: 06664 767. . Pratima GREGORIO. Facto r V [...] or EB, Fangretta P, Malina rds CS; [facility] Labor atory Quali ty Assur ance Commi ttee. Venou s throm boemb olism labor atory testi ng (fact or V Leide n and facto r II c.*97 G>A), 2018 updat e: a techn ical stand adrian of the Jamilah can Colle ge of Medic al [facility] ([facility] ). [facility]. 2018 Mar;2 012) :1489 -1498 . doi: 10.10 38/s4 1436- 018-0 322-z . Epub 2017Jan 04. PMID: 47597 698. Not Available [facility] [address], [place], [address], 06/02/2024 15:11:18 05/28/19 25 06/02/2024 FACTO R V LEIDE N MUTAT ION reviewed by: ANJELICA Olivares Techn ical Rondo nent perfo rmed at [facility] Profe danni al Rondo nent perfo rmed by: . Labor atory Corpo ratio n of Ameri ca Holdi ngs Judy tomas, Ph.D. , [facility] Direc tor, Molec ular [facility] [address] [facility] [address] Perfo rmed at: TG - [facility] [place] [facility] , [place] [address] Lab Direc tor: Edgar Mccartney [facility] , Phone : [phone] Not Available [facility] [address], [place], [address], 06/02/2024 15:11:18 08/27/19 25 08/11/2024 CT, chest , w/o contr ast No observ ation record ed. [email or web address] (Med Record) [address], [place], [address], 09/01/2024 15:33:09 08/27/19 25 08/11/2024 CT, chest , w/o contr ast No observ ation record ed. [email or web address] Not Available 08/26 14:56:07 Result Notes None recorded. Procedures Surgical History Date Name Laterality Status Provider Name and Address Organization Details Recorded Time 05/28/19 25 [facility] [place] 05/28/2024 10:29:00 complete repair of rotator cuff completed [facility] & [place] 05/28/2024 10:27:18 septodermoplasty [facility] [place] 05/28/2024 10:27:[address] [facility] & [place] 05/28/2024 10:28:06 removal of silastic tubes from ear completed [facility] & [place] 05/28/2024 10:28:[address] [facility] & [place] 05/28/2024 10:28:32 Imaging Results None recorded. Procedure [...] Last Updated DateTime 180.34 cm 27.2 kg/m2 50229.5 1 g 97.8 [degF] 98 % 98 % 75 /min 117/74 mm[Hg] Meredith BOYD TERENCE [facility] & [place] 10:25:03 Social History Question Answer Notes LastModified by Organizat ion Details LastModified Time Tobacco Smoking Status Never Smoker Meredith Pen[facility], [facility] & [place] 05/28/2024 10:26:50 What Is Your Level Of Caffeine Consumption? Moderate [email or web address] Information not available 05/28/2024 What Was The Date Of Your Most Recent Tobacco Screening? 05/28/2024 [email or web address] Information not available 05/28/2024 Has Tobacco Cessation Counseling Been Provided? No [email or web address] Information not available 05/28/2024 Sex: Unknown Functional Status Question Answer Note LastModified by Organizat ion Details LastModified Time Do you use any illicit or recreational drugs? No Information not available 05/28/2024 Do you or have you ever used any other forms of tobacco or nicotine? Yes [email or web address] Information not available 05/28/2024 What is your level of alcohol consumption? None Information not available 05/28/2024 Do you or have you ever used smokeless tobacco? Current snuff user only sometime s- fishin/h untin [email or web address] Information not available 05/28/2024 Do you or have you ever used e-cigarettes or vape? Current user of electronic cigarettes [email or web address] Information not available 05/28/2024 Mental Status None recorded. Family History Relationship Description Onset Age of this Age Resolved Age Notes LastModified by Organization Details LastModified Time Father Malignant tumor of colon [email or web address] Not available 05/28 10:25:29 Father Malignant neoplasm of skin [email or web address] Not available 05/28 10:25:37 Father Myocardial infarction [email or web address] Not available 05/04 10:26:04 Medical History No medical history recorded. Past Encounters Encounter ID Performer Location Encounter Start Date Encounter Closed Date Diagnosis/Indication Diagnosis SNOMED-CT Code Diagnosis ICD10 Code Diagnosis Note [id number] Jean Tarango MD [facility] Oncology and Hematolog y [address] [facility] [address] [place] [address] 05/28/2024 09:52:31 05/28/2024 10:47:00 Deep venous thrombosis 349974540 I82.409 Patient with recent history of of [...] chest in July 2024 at [facility]. Will follow-up repeat ultrasound around that time as well. Pulmonary embolism 19124 003 I26.99 Patient with recent history of [...] chest in July 2024 at [facility]. Will follow-up repeat ultrasound around that time as well. Health Concerns Section Related Observation LastModified by Organization Detai ls LastModified Time None Recorded Concern Status LastModified by Organization Details LastModified Time None Recorded Advance Directives Directive None Recorded Payers Insurance Date Sequence Insurance Name Policy Number Policy Smith Covered Member ID Smith Member ID Guarantor Name 08/24/2024 2 [place] [id number] Ru Olivas [id number] Ru Olivas 05/30/[address] [facility] Ru Olivas [id number] Ru Olivas Notes Date Note Type Note [...] of the chest in July 2024 at [facility]. Will follow-up repeat ultrasound around that time as well. Jean Tarango MD [address], [place], [address], [place] - [facility] - [place] & [place] 05/28/2024 12:05:20
--- OUTSIDE RECORDS SUMMARY | 2024-10-13 10:01 | XMS_ITS | Encounter Summary ---
Author Organization Healthcare Address [address] [place] [address] Care Team Providers Care Energy Risk Management Analyst Name Role Phone Florin Sisi My HANDLEY Primary Care Provider [phone] Encounter Details Date Type Department Care Team (Late st Contact Info) Description 08/18/2024 Orders Only [facility] [address] [place] [address] Jessica Isaac Generalized anxiety disorder [...] place to sleep or slept in a senior care (including now)? No 06/15/2023 PHQ-9 Answer Date [...] any time in the past 12 m [facility], were you homeless or living in a senior care (including now)? No 05/20/2024 Utilities Answer Date Recorded In the past 12 months has th e [employer], gas, oil, or water company threatened to [...] documented as of this encounter Care Teams Energy Risk Management Analyst Relationship Specialty Start Date End Date Sisi Catherine APRN [facility] [place] [address] PCP - General 08/13/20 documented as of this encounter
--- NOTE | 2024-10-13 11:00 | CA_ITS ---
FINAL REPORT TECHNIQUE: Graded compression, spectral analysis and ultrasound images of the venous system of the upper extremity were obtained. CLINICAL HISTORY: Rotator cuff surgery 03/19/24 DVT and PE 05/12/24 Pt been on Eliquis FINDINGS: The jugular vein, subclavian vein, axillary vein, brachial vein, cephalic vein and basilic venous system are normal, fully compressible and demonstrate no evidence of thrombosis. IMPRESSION: No evidence of thrombosis of the venous system of the right upper extremity. Reviewed, Interpreted and Dictated by George Schultz MD Transcribed by Colette Whitlock Authenticated and [facility]
--- NOTE | 2024-10-13 11:29 | PC.NURSE ---
6 Minute Walk Test completed on room air. Pt tolerated well.
== END 2024-10-13 23:59 | disposition home or self-care (01) ==
LOC: RT 09:55
PROVIDERS: PCP Nurse Practitioner Family; Visit Provider Internal Medicine Pulmonary Disease
DX: I82.629 Acute embolism and thrombosis of deep veins of unspecified upper extremity (principal); R06.09 Other forms of dyspnea; R06.02 Shortness of breath; Z98.890 Other specified postprocedural states
CPT/HCPCS: 93971; 94618